=== PATIENT | female | born 1955 | race Caucasian/White ===

== ENCOUNTER 2021-05-02 20:38 | Observation (INO) | payer MEDICARE, MEDICAID, SELFPAY ==
[2016-10-24 17:12] VITALS: BMI 47.9
[2021-05-02 20:23] VITALS: BMI 34.4
--- NOTE | 2021-05-02 20:42 | ECHOD_ITS ---
Reason For Study: syncope/near syncope Procedure This was a 2D Doppler, Color Flow transthoracic echocardiogram. The study was technically difficult. PT was unable to cooperate due to dementia. Exam was stopped after apical 2 chamber view due to PT was pushing my arm away. Exam performed portable in patient room. Left Ventricle Normal LV size. Left ventricular systolic function is normal. The estimated ejection fraction is 60 %. No regional wall motion abnormalities noted. Right Ventricle Normal RV size. Normal systolic function. Atria Normal left atrium. Normal right atrium. Mitral Valve Normal mitral valve. Tricuspid Valve Normal tricuspid valve. Aortic Valve Trisinus/trileaflet aortic valve. Mild focal aortic valve calcification. Pulmonic Valve The pulmonic valve is not well visualized. Great Vessels Normal aortic root. The pulmonary artery is normal size. Normal inferior vena cava. Pericardium/Pleural No pericardial effusion. MMode/2D Measurements & Calculations LVIDd: 4.8 cm IVSd: 0.74 cm Ao root diam: 3.5 cm LVIDs: 3.2 cm LVPWd: 0.95 cm RVDd: 2.8 cm FS: 32.4 % LAV(MOD-bp): 65.8 ml LA A4 area: 22.1 cm2 LA dimension(2D): 4.1 cm LAV(MOD-bp) Indexed: 36.2 ml/m2 LAV(MOD-sp2): 64.0 ml LAV(MOD-sp4): 63.2 ml RA A4 area: 16.1 cm2 Doppler Measurements & Calculations MV E max brian: 107.8 cm/sec Lat Peak E' Brian: 12.7 cm/sec Med Peak E' Brian: 9.1 cm/sec MV A max brian: 90.6 cm/sec E/E' lat: 8.5 E/E' med: 11.8 MV E/A: 1.2 Ao V2 max: 217.6 cm/sec LV V1 max: 147.5 cm/sec PA V2 max: 124.0 cm/sec Ao max P.9 mmHg LV V1 max P.7 mmHg Ao V2 mean: 131.8 cm/sec LV V1 mean P.1 mmHg Ao mean P.9 mmHg LV V1 mean: 95.6 cm/sec Ao V2 VTI: 42.1 cm LV V1 VTI: 29.7 cm ECHO/Echo Complete Interpretation Summary Normal LV size. Left ventricular systolic function is normal. The estimated ejection fraction is 60 %. Ordering Physician: Kraig Garzon Referring Physician: Rex Bryan Performed By: Micki Ash, ANA LILIA, RVT
--- NOTE | 2021-05-02 20:45 | PCM.HP.STD ---
HPI - General General Date of Admission: 05/02/21 HPI Narrative NATHANIEL PERRY, is a 65 F who presented to outside hospital ED because of a fall. Patient has dementia and is unable to make it in the snow so history was taken from patient's who was at the bedside. Per patient on the morning of the day of presentation patient was sitting in the chair and she had a seizure. Patient's described the seizure as staring and rigidity. About an hour later patient's heard a thud. He saw that patient was on the floor. Apparently patient was a walking and she fell. After the fall patient was unresponsive. Paramedics were called. Patient was responding only to pain. At outside hospital ED urinalysis was found to be abnormal. Sodium was elevated. Imaging showed a fracture of left medial femoral condyle. Dr. Pritchard orthopedic with [facility] was notified and he recommended knee immobilization. Patient was reportedly brought to our hospital ([facility]) for management of a seizure as outside hospital could not manage seizure. Patient denies that patient has any urinary symptoms. Patient has been constipated for a while but while at outside hospital ED patient had a soft bowel movement. [facility] Medical History Dementia FH: total knee replacement Hypothyroid Seizure Home Medications levothyroxine 175 mcg PO QODAY 10/24/16 [History Last Taken 05/02/21] levetiracetam 750 mg PO BID 05/02/21 [History Last Taken 05/02/21] Allergy/AdvReac Type Severity Reaction Status Date / Time No Known Allergies Allergy Verified 10/24/16 16:56 Family History Father Cancer Social History Smoking Status: Never smoker ROS ROS Narrative 12 point review of system is negative except as stated in HPI. Vital Signs Vital Signs Vital Signs: Weight Weight: 82.7 kg Body Mass Index (BMI) 34.4 Physical Exam Narrative Alert and confused Nontraumatic; normocephalic Lung clear to auscultate Heart sounds S1-S2. No murmur, gallop or rubs. Abdomen bowel sounds present soft, nontender nondistended Extremity: Left knee pain immobilizer in place. Right knee unremarkable. Assessment & Plan Assessment/Plan (1) Femoral condyle fracture: QUALIFIERS: Encounter type: initial encounter Fracture alignment: nondisplaced Fracture type: closed Laterality: left Qualified Code(s): S72.415A - Nondisplaced unspecified condyle fracture of lower end of left femur, initial encounter for closed fracture (2) UTI (urinary tract infection): QUALIFIERS: Hematuria presence: without hematuria Urinary tract infection type: acute cystitis Qualified Code(s): N30.00 - Acute cystitis without hematuria (3) Seizure: (4) Hypernatremia: PLAN: Left Medial Femoral Condyle Fracture With immobilizer; continue Tylenol and oxycodone prn ordered Bowel protocol and antiemetics in place. Consider discussing case with Dr. Perry. Hypernatremia Review of labs from outside hospital ED showed sodium level of 151. Chloride of 111. BUN of 28. Creatinine of 0.90. BUN over creatinine ratio of 31. Magnesium 2.5. Hyponatremia likely secondary to dehydration. Normal saline infusion ordered. Trend BMP. Acute cystitis Urinalysis obtained at the outside hospital was abnormal. Urinalysis was reviewed. Received Rocephin in the emergency department. Rocephin continued. Trend CBC Seizure Patient has dementia and her gives her medication. reported that occasionally he finds the medications on the floor that is occasional patient does not take her medication. Received Keppra IV at outside hospital ED. Home Keppra continued. As needed Ativan ordered. Seizure precautions ordered. DVT prophylaxis Subcutaneous Lovenox ordered Charges/Coding Visit Charges OBSV E&M: 30688 Initial observation care L3
[2021-05-02 20:52] VITALS: BP 109/49; PULSE 66; RESP 16; TEMP 37.2; O2SAT 92
[2021-05-02] MEDS: 0.9% Normal Saline 1,000 ML 100 ML IV (21:04)
[2021-05-02] MEDS: levETIRAcetam 750 MG Tablet PO (21:38)
[2021-05-02 22:01] VITALS: PULSE 67
[2021-05-03] VITALS (10 sets, daily range): BP systolic 112–143; BP diastolic 49–76; PULSE 64–76; RESP 15–18; TEMP 36.2–37.2; O2SAT 93–99
[2021-05-03] MEDS: 0.9% Normal Saline 1,000 ML 100 ML IV ×2 (05:39→16:05)
[2021-05-03 06:16] LABS: Absolute Lymphocyte Count 0.86 X10^3/uL (0.83-4.51); Absolute Neutrophil Count 5.3 X10^3/uL (2.0-7.7); Basophil# 0.02 X10^3/uL; Basophil% 0.3 % (0-1); Eosinophil# 0.03 X10^3/uL; Eosinophils% 0.4 % (0-5); Hematocrit 39.3 % (37-54); Hemoglobin 12.7 g/dL (13.0-16.5); Lymphocyte # 0.86 X10^3/ul (0.83-4.51); Lymphocyte % 12.9 % (19-41); Mean Corp Hgb Conc 32.3 g/dL (32-36); Mean Corpuscular Hgb 30.6 pg (27.0-32.0); Mean Corpuscular Volume 94.7 fL (80-94); Mean Platelet Vol. 10.8 fl (6.2-12.0); Monocyte# 0.49 X10^3/uL; Monocyte% 7.3 % (0-10); NRBC Flagged by Analyzer 0 % (0-5); Neutrophil # 5.26 X10^3/uL (2.7-7.7); Neutrophil % 78.8 % (47-70); Platelet Count 218 K/mm3 (150-450); RBC Distribution Width CV 12.5 % (11.6-14.6); RBC Distribution Width SD 43.6 fl (35.1-43.9); Red Blood Count 4.15 M/mm3 (4.6-6.2); White Blood Count 6.7 K/mm3 (4.4-11.0)
[2021-05-03 07:45] LABS: Anion Gap 5 (5-15); BUN 17 mg/dL (7-18); BUN/Creat Ratio 25.8 RATIO (10-20); Calcium,Total 8.6 mg/dL (8.5-10.1); Chloride 120 mmol/L (98-107); Creatinine, Serum 0.66 mg/dL (0.55-1.02); EST Glomerular Filtration Rate 95 mL/min (>60); Est Glom Filt Rate - Afr Amer 115 mL/min (>60); Estimated Creatinine Clearance 41.76 ml/min; Glucose 88 mg/dL (74-106); Potassium 3.2 mmol/L (3.5-5.1); Sodium Level 149 mmol/L (136-145)
[2021-05-03 08:03] LABS: Vitamin D,25 Hydroxy 15.4 ng/mL
[2021-05-03] MEDS: Enoxaparin 40 MG/0.4 ML Syringe SC (09:39)
[2021-05-03] MEDS: Ceftriaxone 1 GM/50 ML BAG IV (09:40)
--- NOTE | 2021-05-03 10:27 | CASEMGMT ---
Assessment- MASOUD completed assessment with patient's at bedside. SW also confirmed address and phone number. Living situation- Patient lives with her in a 1 story home with 3 entry steps. PCP: Rex Bryan Specialists: Dr Cruz at [facility] in [place]. Dr Mariano for Psychiatry Pharmacy: [facility] DME: walker, cane, and lift chair. They have a walk in shower ADL's/IADL's: Patient's helps patient with everything. She can feed herself without utensils. She normally does not use any assistive devices to ambulate. Past SNF/rehab: None in [place]. Several years ago she went to a fpc in [place] after a knee replacement. Past HH: None LW: None POA: None Patient's said he was able to get patient back into [facility] 3 days a week. He said he works with [facility], but does not know the manager rn case. He said if she can walk he will take her home. MASOUD told him MASOUD and RN TYE will follow and assist with d/c planning once more is known. Plan: Pending work-up and PT/OT evaluations Bhumika Ribera [employer] JORDY
[2021-05-03] MEDS: levETIRAcetam 750 MG Tablet PO ×2 (10:28→20:58)
--- NOTE | 2021-05-03 13:08 | CASEMGMT ---
DELIO GAMBLE in to discuss CH form with patient and . RN CM explained CH form, voiced understanding. Pt signed form, filed in chart. Pt and provided with a copy of signed CH form. Patient nor had no further questions or concerns at this time.
--- NOTE | 2021-05-03 14:57 | PCM.PN.HOSP ---
Documented by User: Jaswant MILLER 05/03/21 15:13 Subjective Subjective Patient is a 65-year-old female resting in bed, alert and oriented to self. Patient unable to provide much insight into her condition due to her severe chronic dementia. reports that patient is at her baseline. Objective Data Objective Data Vital Signs: Vital Signs Temp Pulse Resp BP Pulse Ox 97.8 F 68 18 114/74 97 05/03/21 14:21 05/03/21 14:21 05/03/21 14:21 05/03/21 14:21 05/03/21 14:21 Oxygen Delivery Method Room Air Weight: 182 lb 5.156 oz Body Mass Index (BMI) 34.4 Intake & Output: Intake and Output for Last 24 Hours 05/01/21 05/02/21 05/03/21 23:59 23:59 23:59 Intake Total 1336.66 / 1336.66 Balance 1336.66 / 1336.66 Lab / Micro Data Result Diagrams: 05/03/21 05:35 05/03/21 05:35 Labs: Laboratory Results - last 24 hr 05/03/21 05/03/21 05/03/21 05:35 05:35 05:35 WBC 6.7 RBC 4.15 L Hgb 12.7 L Hct 39.3 MCV 94.7 H MCH 30.6 MCHC 32.3 RDW Std Deviation 43.6 RDW Coeff of Karen 12.5 Plt Count 218 MPV 10.8 Immature Gran % (Auto) 0.300 Neut % (Auto) 78.8 H Lymph % (Auto) 12.9 L [place] % (Auto) 7.3 Eos % (Auto) 0.4 Baso % (Auto) 0.3 Absolute Neuts (auto) 5.3 Absolute Lymphs (auto) 0.86 Nucleated RBC % 0 Sodium 149 H Potassium 3.2 L Chloride 120 H Carbon Dioxide 24.0 Anion Gap 5 BUN 17 Creatinine 0.66 Estim Creat Clear Calc 41.76 Est GFR (MDRD) Af Amer 115 Est GFR (MDRD) Non-Af 95 BUN/Creatinine Ratio 25.8 H Glucose 88 Calcium 8.6 Vitamin D 25-Hydroxy 15.4 Radiography Diagnostic Testing: Radiology Impression Echocardiogram 05/02/21 20:42 Interpretation Summary Normal LV size. Left ventricular systolic function is normal. The estimated ejection fraction is 60 %. Ordering Physician: Kraig Garzon Referring Physician: Rex Bryan Performed By: Micki Ash, RDCS, RVT Physical Exam Const alert General Appearance: uncooperative HEENT head/scalp atraumatic Head and Scalp: normocephalic Eyes PERRL, EOMs intact bilaterally and conjunctivae normal Neck no lymphadenopathy, supple and no JVD Resp normal respiratory effort and no use of accessory muscles Cardio regular rate, regular rhythm, no murmurs and no JVD GI normal to inspection, nondistended, normoactive bowel sounds, soft to palpation and non-tender Extremity normal to inspection, full ROM and no clubbing, cyanosis or edema Skin no rashes or lesions noted, no wounds and skin turgor normal Neuro Neuro Narrative: Unable to assess. Psych Psych Narrative: Unable to assess. Assessment & Plan Assessment/Plan (1) Hypernatremia: (2) UTI (urinary tract infection): QUALIFIERS: Hematuria presence: without hematuria Urinary tract infection type: acute cystitis Qualified Code(s): N30.00 - Acute cystitis without hematuria (3) Femoral condyle fracture: QUALIFIERS: Encounter type: initial encounter Fracture alignment: nondisplaced Fracture type: closed Laterality: left Qualified Code(s): S72.415A - Nondisplaced unspecified condyle fracture of lower end of left femur, initial encounter for closed fracture (4) Seizure: PLAN: Patient unable to provide much insight into her condition due to her severe dementia. Patient's reports that patient is at baseline. Discharge planning: Patient's is patient's sole care provider. reports that he would like to continue taking care of his , he works with [facility] for care with his , also he takes his to [facility] 3 days/week. reports that he can request additional assistance for home health care through [facility]. is not interested in placement at correction facility at this time. 1) femoral condyle fracture Diagnosed at outside hospital. Plan; knee immobilization per Dr. Pritchard, orthopedic consult ordered/pending, Tylenol as needed, oxycodone as needed. 2) acute cystitis UA obtained at outside hospital demonstrated abnormal UA. Vital signs stable and patient is afebrile. CBC demonstrates no leukocytosis. Plan; continue Rocephin, continue to monitor. 3) seizure Patient is on Keppra at home and is administered by her Patients reports that he gives the Keppra as prescribed, however sometimes patient refuses to take the pills as he finds the pills in the bed. Plan; Ativan as needed, seizure precautions ordered, home Keppra continued. 4) hypernatremia Currently 149. Possibly secondary to dehydration. Plan; normal saline infusion ordered, continue to trend BMP. 5) Hypokalemia Currently 3.2. Plan; IV potassium ordered, continue to monitor BMP. DVT prophylaxis - Lovenox SC Patient seen by Jaswant Peter PA-C, under the supervision of Dr. Bansal. Documented by User: Dr. Ric Bansal MD 05/03/21 15:22 Objective Data Lab / Micro Data Result Diagrams: 05/03/21 05:35 05/03/21 05:35 Charges/Coding Addendum Addendum: Hospitalist note: I am seeing this patient in conjunction with Jaswant Peter. I independently seen and examined the patient. History and physical, laboratory data and imaging studies reviewed and I concur with above treatment plan. Patient was admitted because of seizure and fall. She does have dementia and she is awake and alert but not able to communicate. was at the bedside. Her vital signs are stable. - Physical Exam General: Alert, demented, Cooperative, No apparent distress. HEENT: Atraumatic, PERRLA, EOMI. Neck: Supple, No JVD, Negative Carotid Bruits, Trachea Midline, Thyroid Normal. Lungs: Clear to auscultation, Normal air movement, No rhonchi, No wheeze, No rales. Cardiovascular: Regular rate, Regular Rhythm, Normal S1, Normal S2, PMI Normal. Abdomen: Bowel Sounds Present, Soft, Non Tender, Non-Distended, No Hepato-splenomegaly. Extremities: No clubbing, No cyanosis, No edema Skin: No rashes, No breakdown Neurological: Cranial nerves are intact, neuro grossly intact Vital Signs are stable. Assessment and plan: #1 seizure: Apparently due to medication noncompliance, mentioned that he gives her her medication including Keppra but lately, he states that he finds some pills on on the bed untaken. Currently, she is on Keppra, will need to confirm the dosage. CT scan brain showed no acute findings. #2 acute traumatic left medial femoral condyle fracture: Plan for pain control, consult orthopedic surgery. #3 acute cystitis: On IV Rocephin. She has been afebrile, no leukocytosis. #4 other chronic medical problems: Stable, continue current medications as above. This note was generated with [employer] dictation software. It may contain incorrect words, spelling, and punctuation that were not noted in checking the note before signing. Visit Charges OBSV E&M: 51560 Subsequent observation care L2
[2021-05-03] MEDS: Potassium Chloride 10mEq/100mL 10 MEQ/100 ML IV.SOLN. 100 MEQ IV BOLUS ×4 (16:11→19:26)
[2021-05-04] VITALS (11 sets, daily range): BP systolic 115–130; BP diastolic 60–77; PULSE 43–67; RESP 15–18; TEMP 36.3–36.7; O2SAT 93–100
[2021-05-04] MEDS: 0.9% Normal Saline 1,000 ML 100 ML IV ×3 (02:40→21:27)
[2021-05-04] MEDS: Levothyroxine 175 MCG Tablet PO (05:47)
[2021-05-04 06:41] LABS: Absolute Neutrophil Count 3.9 X10^3/uL (2.0-7.7); Basophil# 0.04 X10^3/uL; Basophil% 0.6 % (0-1); Eosinophil# 0.37 X10^3/uL; Hematocrit 37.3 % (37-47); Hemoglobin 12.3 g/dL (12.0-15.0); Lymphocyte % 22.7 % (19-41); Mean Corpuscular Hgb 30.6 pg (27.0-32.0); Mean Corpuscular Volume 92.8 fL (81-99); Mean Platelet Vol. 10.7 fl (6.2-12.0); Monocyte# 0.51 X10^3/uL; Monocyte% 8.3 % (0-10); NRBC Flagged by Analyzer 0 % (0-5); Neutrophil # 3.85 X10^3/uL (2.7-7.7); Neutrophil % 62.2 % (47-70); Platelet Count 200 K/mm3 (150-450); RBC Distribution Width CV 12.5 % (11.6-14.6); RBC Distribution Width SD 42.8 fl (35.1-43.9); Red Blood Count 4.02 M/mm3 (4.2-5.4); White Blood Count 6.2 K/mm3 (4.4-11.0)
[2021-05-04 07:06] LABS: Anion Gap 4 (5-15); BUN 8 mg/dL (7-18); BUN/Creat Ratio 14.2 RATIO (10-20); Calcium,Total 8.7 mg/dL (8.5-10.1); Chloride 119 mmol/L (98-107); Creatinine, Serum 0.56 mg/dL (0.55-1.02); EST Glomerular Filtration Rate 115 mL/min (>60); Est Glom Filt Rate - Afr Amer 139 mL/min (>60); Estimated Creatinine Clearance 41.76 ml/min; Glucose 87 mg/dL (74-106); Potassium 3.3 mmol/L (3.5-5.1); Sodium Level 146 mmol/L (136-145)
--- NOTE | 2021-05-04 07:54 | PCM.CONS.GEN ---
Assessment & Plan Assessment/Plan (1) Closed fracture of medial condyle of left femur: PLAN: Patient sustained a left medial femoral condyle fracture after falling. Most likely this will be successfully treated in a knee immobilizer, non-operative treatment, as previously recommended by Dr. Pritchard. Recommended ice if needed. Pain medication if needed. Nonweightbearing on the left leg for now. May Need to pad upper and lower area of brace to avoid skin breakdown. She can be followed in the office in 2 to 3 weeks for repeat x-rays of the left knee. If the fracture seems stable and does not seem to appear to enter the joint we could consider partial weightbearing at that point with her knee immobilizer on. Risk of fracture displacement does exist. medical problems including seizures, dementia. Continue evaluation and treatment per hospitalist service. Patient can be discharged per orthopedic service when arrangements made and okay with hospitalist HPI Consult Data Date of Consult: 05/04/21 HPI Narrative HPI Narrative: NATHANIEL PERRY, is a 65 F who presents after having a seizure and falling on May 02, 2021. Reportedly she was taken to [facility] emergency room and ultimately transferred to [facility]. Dr. Pritchard had recommended a knee immobilizer and follow-up in the office. Patient has dementia. Patient does not answer questions or follow commands. She seems comfortable. She is wearing a knee immobilizer left lower extremity. No Family was present at the bedside REPLACED BY [facility] Medical History Dementia FH: total knee replacement Hypothyroid Seizure Home Medications levothyroxine 175 mcg PO QODAY 10/24/16 [History Last Taken 05/02/21] levetiracetam 750 mg PO BID 05/02/21 [History Last Taken 05/02/21] Allergy/AdvReac Type Severity Reaction Status Date / Time No Known Allergies Allergy Verified 10/24/16 16:56 Family History Father Cancer Social History Smoking Status: Never smoker ROS ROS Narrative Review of systems not obtainable. Due to mental status. Hospitalist notes reviewed. Case discussed with her nurse. Physical Exam Narrative Patient is lying supine in bed. She does have her knee immobilizer on her left lower extremity. This was taken down. Her skin is intact. She has no obvious pain on palpation about the knee. Very minimal knee swelling. Knee was not overly stressed. No obvious calf pain or swelling. Negative Homans' sign. Clinically knee is well aligned. No hip pain with motion obvious. X-rays AP and lateral of the left knee showed a total knee replacement in good position. There is a nondisplaced fracture line to the medial femoral condyle on the AP view. No obvious fracture seen on the lateral view. Fracture may well not involve her whole knee component. No Obvious loosening or failure of the total knee components Lab / Micro Data Result Diagrams: 05/04/21 05:41 05/04/21 05:41 Labs: Laboratory Results - last 24 hr 05/03/21 05/04/21 05/04/21 05:35 05:41 05:41 WBC 6.2 RBC 4.02 L Hgb 12.3 Hct 37.3 MCV 92.8 MCH 30.6 MCHC 33.0 RDW Std Deviation 42.8 RDW Coeff of Karen 12.5 Plt Count 200 MPV 10.7 Immature Gran % (Auto) 0.200 Neut % (Auto) 62.2 Lymph % (Auto) 22.7 [place] % (Auto) 8.3 Eos % (Auto) 6.0 H Baso % (Auto) 0.6 Absolute Neuts (auto) 3.9 Absolute Lymphs (auto) 1.40 Nucleated RBC % 0 Sodium 146 H Potassium 3.3 L Chloride 119 H Carbon Dioxide 23.0 Anion Gap 4 L BUN 8 Creatinine 0.56 Estim Creat Clear Calc 41.76 Est GFR (MDRD) Af Amer 139 Est GFR (MDRD) Non-Af 115 BUN/Creatinine Ratio 14.2 Glucose 87 Calcium 8.7 Vitamin D 25-Hydroxy 15.4 Radiology Impression Echocardiogram 05/02/21 20:42 Interpretation Summary Normal LV size. Left ventricular systolic function is normal. The estimated ejection fraction is 60 %. Ordering Physician: Kraig Garzon Referring Physician: Rex Bryan Performed By: Micki Ash RDCS, RVT
[2021-05-04] MEDS: Enoxaparin 40 MG/0.4 ML Syringe SC (09:28)
[2021-05-04] MEDS: levETIRAcetam 750 MG Tablet PO ×2 (09:28→21:26)
[2021-05-04] MEDS: Acetaminophen 325 MG Tablet 650 MG PO ×2 (09:29→16:52)
[2021-05-04] MEDS: Ceftriaxone 1 GM/50 ML BAG IV (09:34)
[2021-05-04] MEDS: Potassium Chloride 10mEq/100mL 10 MEQ/100 ML IV.SOLN. 100 MEQ IV BOLUS ×4 (10:59→13:49)
[2021-05-04 11:34] LABS: Thyroid Stim Hormone (TSH) < 0.01 uIU/mL (0.358-3.74)
--- NOTE | 2021-05-04 12:53 | PN.HOSP_ITS ---
Documented by User: Jaswant MILLER 05/04/21 12:59 Subjective Subjective Patient is a 65-year-old female resting in a chair, alert to self. Patient unable to provide much insight into her medical condition due to her severe dementia. Objective Data Objective Data Vital Signs: Vital Signs Temp Pulse Resp BP Pulse Ox 97.9 F 48 L 18 118/73 97 05/04/21 09:25 05/04/21 10:47 05/04/21 09:25 05/04/21 09:25 05/04/21 09:25 Oxygen Delivery Method Room Air Weight: 182 lb 5.156 oz Body Mass Index (BMI) 34.4 Intake & Output: Intake and Output for Last 24 Hours 05/02/21 05/03/21 05/04/21 23:59 23:59 23:59 Intake Total 2308.33 / 2308.33 2090.00 / 2090.00 Balance 2308.33 / 2308.33 2090.00 / 2090.00 Lab / Micro Data Result Diagrams: 05/04/21 05:41 05/04/21 05:41 Labs: Laboratory Results - last 24 hr 05/04/21 05/04/21 05/04/21 05:41 05:41 05:41 WBC 6.2 RBC 4.02 L Hgb 12.3 Hct 37.3 MCV 92.8 MCH 30.6 MCHC 33.0 RDW Std Deviation 42.8 RDW Coeff of Karen 12.5 Plt Count 200 MPV 10.7 Immature Gran % (Auto) 0.200 Neut % (Auto) 62.2 Lymph % (Auto) 22.7 [place] % (Auto) 8.3 Eos % (Auto) 6.0 H Baso % (Auto) 0.6 Absolute Neuts (auto) 3.9 Absolute Lymphs (auto) 1.40 Nucleated RBC % 0 Sodium 146 H Potassium 3.3 L Chloride 119 H Carbon Dioxide 23.0 Anion Gap 4 L BUN 8 Creatinine 0.56 Estim Creat Clear Calc 41.76 Est GFR (MDRD) Af Amer 139 Est GFR (MDRD) Non-Af 115 BUN/Creatinine Ratio 14.2 Glucose 87 Calcium 8.7 TSH < 0.01 L Physical Exam Const alert, oriented x3 and no apparent distress HEENT head/scalp atraumatic and moist oral mucous membranes Head and Scalp: normocephalic Eyes PERRL, EOMs intact bilaterally and conjunctivae normal Neck no lymphadenopathy, supple and no JVD Resp normal respiratory effort, no retractions, no use of accessory muscles and clear to auscultation bilaterally Cardio regular rate, regular rhythm, no murmurs and no JVD GI normal to inspection, nondistended, normoactive bowel sounds, soft to palpation, non-tender and non-distended Extremity normal to inspection, full ROM and no clubbing, cyanosis or edema Skin no rashes or lesions noted, no wounds, skin turgor normal and no jaundice Neuro CN's II-XII intact bilaterally Psych affect normal Assessment & Plan Assessment/Plan (1) Acute cystitis: (2) Closed fracture of medial condyle of left femur: (3) Hypernatremia: (4) Seizure: (5) Hypothyroidism: (6) Seizure disorder: PLAN: Patient unable to provide much insight into her condition due to her severe dementia. Patient's reports that patient is at baseline. Discharge planning: has changed mind about disposition of patient, now would like her to be placed into detention care due to patient's inability to bear weight. Case management consult has been ordered. 1) femoral condyle fracture Diagnosed at outside hospital. Plan; knee immobilization per Dr. Pritchard, orthop edic consult ordered/pending, Tylenol as needed, oxycodone as needed, case management consult ordered for detention care on discharge. 2) acute cystitis UA obtained at outside hospital demonstrated abnormal UA. Vital signs stable and patient is afebrile. CBC demonstrates no leukocytosis. Plan; continue Rocephin, continue to monitor. 3) seizure Patient is on Keppra at home and is administered by her Patients reports that he gives the Keppra as prescribed, however sometimes patient refuses to take the pills as he finds the pills in the bed. Plan; Ativan as needed, seizure precautions ordered, home Keppra continued. 4) hypernatremia Currently 149. Possibly secondary to dehydration. Plan; normal saline infusion ordered, continue to trend BMP. 5) Hypokalemia Currently 3.2. Plan; IV potassium ordered, continue to monitor BMP. 6) Hypothyroidism Patient's home prescription of Synthroid has been changed to 125 mcg daily due to low TSH and reports from that patient has lost 40 pounds over the past few months. Plan; discontinue levothyroxine 175 mcg daily, levothyroxine 125 mcg daily initiated. DVT prophylaxis - Lovenox [place] Patient seen by Jaswant Peter PA-C, under the supervision of Dr. Bansal. Documented by User: Dr. Ric Bansal MD 05/04/21 13:18 Objective Data Lab / Micro Data Result Diagrams: 05/04/21 05:41 05/04/21 05:41 Charges/Coding Addendum Addendum: Hospitalist note: I am seeing this patient in conjunction with Jaswant Peter. I independently seen and examined the patient. Progress note above and laboratory data reviewed and I concur with the above plan. Today, patient is sitting in her chair, comfortable, alert to herself, not communicating because of severe dementia. was at the bedside and he stated that she is at her baseline mentation. Her vital signs are stable. - Physical Exam General: Alert, demented, Cooperative, No apparent distress. HEENT: Atraumatic, PERRLA, EOMI. Neck: Supple, No JVD, Negative Carotid Bruits, Trachea Midline, Thyroid Normal. Lungs: Clear to auscultation, Normal air movement, No rhonchi, No wheeze, No rales. Cardiovascular: Regular rate, Regular Rhythm, Normal S1, Normal S2, PMI Normal. Abdomen: Bowel Sounds Present, Soft, Non Tender, Non-Distended, No Hepato- splenomegaly. Extremities: No clubbing, No cyanosis, No edema Skin: No rashes, No breakdown Neurological: Cranial nerves are intact, neuro grossly intact Vital Signs are stable. Assessment and plan: #1 seizure: Remained on Keppra twice daily, no more seizures. This breakthrough seizure is probably due to medication noncompliance, mentioned that he gives her her medication including Keppra but lately, he states that he finds some pills on on the bed untaken. CT scan brain showed no acute findings. Plan for PT OT evaluation and treatment, continue same treatment, patient will need placement to detention facility. #2 acute traumatic left medial femoral condyle fracture: Orthopedic surgery consulted,, recommended conservative treatment with knee immobilizer. Patient's mentioned that patient is having problems bearing weight to her left leg. He requested placement to detention facility. Plan for PT OT evaluation and treatment, placement to SNF. #3 acute cystitis: On IV Rocephin. She has been afebrile, no leukocytosis. #4 hypothyroidism: TSH came back at less than 0.01, very low. Patient's mentioned that she has been on 175 mcg daily of levothyroxine for the last 5 years. He mentioned that she lost some weight in the last couple of months. Plan: Decrease levothyroxine down to 125 mcg daily, recommend to repeat TSH in 2 to 4 weeks. #5 other chronic medical problems: Stable, continue current medications as above. This note was generated with [employer] dictation software. It may contain incorrect words, spelling, and punctuation that were not noted in checking the note before signing. Multi Select Codes Visit Charges Observation E&M Codin Subsequent observation care L2
--- NOTE | 2021-05-04 18:59 | CM.ED ---
MASOUD Note Referral Source: [facility] Consultant Referral Reason: [facility] Consultant advised that RN had called and indicated that plan for patient was discharge home however, patient's said that patient needs [facility] Facility (SNF) at discharge. MASOUD met with patient's , Clarence, and provided him with in network providers for SNF in [facility]. said that patient can not put weight on her leg, is incontinent and has dementia and he feels he can't manage her at home currently. Clarence advised he just wants facility that can manage patient. His choices for SNF were [facility] ([facility]) and [facility]. MASOUD called Karma at [facility]. She said that they have one female bed in their locked unit. She said that referral could be made on Thursday as she will need to verify insurance. MASOUD will leave message for assigned social work associate. MASOUD updated patient's , Clarence, that [facility] has an secure locked unit. He said that patient is not a runner but when she is in a strange facility she paces and walks alot. Plan: SNF at discharge. Florence MELTON
[2021-05-05] VITALS (10 sets, daily range): BP systolic 99–116; BP diastolic 54–88; PULSE 57–87; RESP 16–18; TEMP 36.6–36.9; O2SAT 95–98
[2021-05-05] MEDS: Levothyroxine 125 MCG Tablet PO (05:23)
[2021-05-05 07:20] LABS: Anion Gap 5 (5-15); BUN 7 mg/dL (7-18); BUN/Creat Ratio 14.7 RATIO (10-20); Calcium,Total 8.4 mg/dL (8.5-10.1); Chloride 115 mmol/L (98-107); Creatinine, Serum 0.48 mg/dL (0.55-1.02); EST Glomerular Filtration Rate 138 mL/min (>60); Est Glom Filt Rate - Afr Amer 167 mL/min (>60); Estimated Creatinine Clearance 41.76 ml/min; Glucose 96 mg/dL (74-106); Potassium 3.7 mmol/L (3.5-5.1); Sodium Level 143 mmol/L (136-145)
[2021-05-05] MEDS: 0.9% Normal Saline 1,000 ML 100 ML IV ×2 (07:20→17:56)
[2021-05-05] MEDS: Enoxaparin 40 MG/0.4 ML Syringe SC (08:52)
[2021-05-05] MEDS: levETIRAcetam 750 MG Tablet PO ×2 (08:52→21:33)
[2021-05-05] MEDS: Ceftriaxone 1 GM/50 ML BAG IV (09:23)
--- NOTE | 2021-05-05 14:45 | PN.HOSP_ITS ---
Documented by User: Jaswant MILLER 05/05/21 14:48 Subjective Subjective Patient is a 65-year-old female alert to self and resting in a chair. Patient unable to provide much history into her current condition given her baseline severe dementia. not in the room at the time of my examination. Objective Data Objective Data Vital Signs: Vital Signs Temp Pulse Resp BP Pulse Ox 97.9 F 60 18 102/54 L 98 05/05/21 09:27 05/05/21 09:27 05/05/21 09:27 05/05/21 09:27 05/05/21 09:27 Oxygen Delivery Method Room Air Weight: 182 lb 5.156 oz Body Mass Index (BMI) 34.4 Intake & Output: Intake and Output for Last 24 Hours 05/03/21 05/04/21 05/05/21 23:59 23:59 23:59 Intake Total 2308.33 / 2308.33 3616.67 / 3616.67 1545.00 / 1545.00 Balance 2308.33 / 2308.33 3616.67 / 3616.67 1545.00 / 1545.00 Lab / Micro Data Result Diagrams: 05/04/21 05:41 05/05/21 06:16 Labs: Laboratory Results - last 24 hr 05/05/21 06:16 Sodium 143 Potassium 3.7 Chloride 115 H Carbon Dioxide 23.0 Anion Gap 5 BUN 7 Creatinine 0.48 L Estim Creat Clear Calc 41.76 Est GFR (MDRD) Af Amer 167 Est GFR (MDRD) Non-Af 138 BUN/Creatinine Ratio 14.7 Glucose 96 Calcium 8.4 L Physical Exam Const alert, oriented x3 and no apparent distress HEENT head/scalp atraumatic Head and Scalp: normocephalic Eyes PERRL, EOMs intact bilaterally and conjunctivae normal Neck no lymphadenopathy, supple and no JVD Resp normal respiratory effort, no retractions, no use of accessory muscles and clear to auscultation bilaterally Cardio regular rate, regular rhythm, no murmurs and no JVD GI normal to inspection, nondistended, normoactive bowel sounds and soft to palpation Extremity normal to inspection Skin no rashes or lesions noted, no wounds and no jaundice Neuro CN's II-XII intact bilaterally Psych affect normal Assessment & Plan Assessment/Plan (1) Acute cystitis: (2) Closed fracture of medial condyle of left femur: (3) Hypernatremia: (4) Seizure: (5) Hypothyroidism: (6) Seizure disorder: PLAN: See subjective for patient presentation. Discharge planning: Case management/social work attempting to get patient into [facility] [place] or [facility]. 1) femoral condyle fracture Diagnosed at outside hospital. Plan; knee immobilization per Dr. Pritchard, orthopedic consult ordered/pending, Tylenol as needed, oxycodone as needed, case management consult ordered for detention care on discharge. 2) acute cystitis UA obtained at outside hospital demonstrated abnormal UA. Vital signs stable and patient is afebrile. CBC demonstrates no leukocytosis. Plan; continue Rocephin, continue to monitor. 3) seizure Patient is on Keppra at home and is administered by her Patients reports that he gives the Keppra as prescribed, however sometimes patient refuses to take the pills as he finds the pills in the bed. Plan; Ativan as needed, seizure precautions ordered, home Keppra continued. 4) hypernatremia Currently 149. Possibly secondary to dehydration. Plan; normal saline infusion ordered, continue to trend BMP. 5) Hypokalemia Currently 3.2. Plan; IV potassium ordered, continue to monitor BMP. 6) Hypothyroidism Patient's home prescription of Synthroid has been changed to 125 mcg daily due to low TSH and reports from that patient has lost 40 pounds over the past few months. Plan; discontinue levothyroxine 175 mcg daily, levothyroxine 125 mcg daily initiated. DVT prophylaxis - Lovenox [place] Patient seen by Jaswant Peter PA-C, under the supervision of Dr. Bansal. Documented by User: Dr. Ric Bansal MD 05/05/21 14:59 Objective Data Lab / Micro Data Result Diagrams: 05/04/21 05:41 05/05/21 06:16 Charges/Coding Addendum Addendum: Hospitalist note: I am seeing this patient in conjunction with Jaswant Peter. I independently seen and examined the patient. Progress note above and laboratory data reviewed and I concur with the above plan. Today, patient is sitting in her chair, comfortable, alert to herself, not communicating because of severe dementia. Her vital signs are stable. - Physical Exam General: Alert, demented, Cooperative, No apparent distress. HEENT: Atraumatic, PERRLA, EOMI. Neck: Supple, No JVD, Negative Carotid Bruits, Trachea Midline, Thyroid Normal. Lungs: Clear to auscultation, Normal air movement, No rhonchi, No wheeze, No rales. Cardiovascular: Regular rate, Regular Rhythm, Normal S1, Normal S2, PMI Normal. Abdomen: Bowel Sounds Present, Soft, Non Tender, Non-Distended, No Hepato- splenomegaly. Extremities: No clubbing, No cyanosis, No edema Skin: No rashes, No breakdown Neurological: Cranial nerves are intact, neuro grossly intact Vital Signs are stable. Assessment and plan: #1 seizure: Remained on Keppra twice daily, no more seizures. This breakthrough seizure is probably due to medication noncompliance, mentioned that he gives her her medication including Keppra but lately, he states that he finds some pills on on the bed untaken. CT scan brain showed no acute findings. Plan for PT OT evaluation and treatment, continue same treatment, awaiting insurance approval for placement to detention facility. #2 acute traumatic left medial femoral condyle fracture: Orthopedic surgery consulted,, recommended conservative treatment with knee immobilizer. Patient's mentioned that patient is having problems bearing weight to her left leg. He requested placement to detention facility. Plan for PT OT evaluation and treatment, placement to SNF. #3 acute cystitis: On IV Rocephin. She has been afebrile, no leukocytosis. #4 hypothyroidism: TSH came back at less than 0.01, very low. Dose of levothyroxine adjusted down to 125 mcg daily. Recommend to repeat TSH in 2 to 4 weeks. #5 other chronic medical problems: Stable, continue current medications as above. This note was generated with [employer] software. It may contain incorrect words, spelling, and punctuation that were not noted in checking the note before signing. Visit Charges OBSV E&M: 53989 Subsequent observation care L2
[2021-05-06] VITALS (9 sets, daily range): BP systolic 97–141; BP diastolic 65–72; PULSE 53–83; RESP 16–18; TEMP 36.6–36.8; O2SAT 93–100
[2021-05-06] MEDS: 0.9% Normal Saline 1,000 ML 100 ML IV ×2 (04:05→15:09)
[2021-05-06] MEDS: Levothyroxine 125 MCG Tablet PO (05:25)
[2021-05-06] MEDS: levETIRAcetam 750 MG Tablet PO ×2 (09:16→22:09)
[2021-05-06] MEDS: Enoxaparin 40 MG/0.4 ML Syringe SC (09:16)
[2021-05-06] MEDS: 0.9% Saline Lock 10 ML Syringe IV (09:16)
[2021-05-06] MEDS: Ceftriaxone 1 GM/50 ML BAG IV (09:16)
[2021-05-06] MEDS: Acetaminophen 325 MG Tablet 650 MG PO (09:19)
--- NOTE | 2021-05-06 09:20 | CASEMGMT ---
MASOUD faxed referral to [facility]. MASOUD also called Lucila at [facility]. Await response and patient will also need a pre-cert. Bhumika Ribera MSW JORDY
--- NOTE | 2021-05-06 12:26 | PN.HOSP_ITS ---
Documented by User: Jaswant MILLER 05/06/21 12:31 Subjective Subjective Patient is a 65-year-old female lying in bed, alert and oriented x3. Patient cannot provide insight into her current condition or symptoms due to her severe dementia. not in the room at the time of my examination. Objective Data Objective Data Vital Signs: Vital Signs Temp Pulse Resp BP Pulse Ox 98.1 F 62 18 114/72 93 05/06/21 09:27 05/06/21 10:59 05/06/21 09:27 05/06/21 09:27 05/06/21 09:27 Oxygen Delivery Method Room Air Weight: 182 lb 5.156 oz Body Mass Index (BMI) 34.4 Intake & Output: Intake and Output for Last 24 Hours 05/04/21 05/05/21 05/06/21 23:59 23:59 23:59 Intake Total 3616.67 / 3616.67 2250.00 / 2250.00 1668.33 / 1668.33 Output Total 350 / 750 800 / 800 Balance 3616.67 / 3616.67 1900.00 / 1500.00 868.33 / 868.33 Lab / Micro Data Result Diagrams: 05/04/21 05:41 05/05/21 06:16 Physical Exam Const alert Exam Limitations: altered mental status and other limitations Nutritional Appearance: obese HEENT head/scalp atraumatic Head and Scalp: normocephalic Eyes PERRL and EOMs intact bilaterally Neck no lymphadenopathy, supple and no JVD Resp normal respiratory effort, no retractions and no use of accessory muscles Cardio regular rate, regular rhythm, no murmurs and no JVD GI normal to inspection, nondistended, normoactive bowel sounds and soft to palpation Extremity normal to inspection Skin no rashes or lesions noted Neuro CN's II-XII intact bilaterally Psych affect normal Assessment & Plan Assessment/Plan (1) Acute cystitis: (2) Closed fracture of medial condyle of left femur: (3) Hypernatremia: (4) Seizure: (5) Hypothyroidism: (6) Seizure disorder: PLAN: See subjective for patient presentation. Discharge planning; patient is awaiting acceptance and pre-CERT at [facility]. 1) femoral condyle fracture Diagnosed at outside hospital. Plan; knee immobilization per Dr. Pritchard, orthopedic consult ordered/pending, Tylenol as needed, oxycodone as needed, case management consult ordered for longterm care on discharge. 2) acute cystitis UA obtained at outside hospital demonstrated abnormal UA. Vital signs stable and patient is afebrile. CBC demonstrates no leukocytosis. Plan; continue Rocephin, continue to monitor. 3) seizure Patient is on Keppra at home and is administered by her Patients reports that he gives the Keppra as prescribed, however sometimes patient refuses to take the pills as he finds the pills in the bed. Plan; Ativan as needed, seizure precautions ordered, home Keppra continued. 4) hypernatremia Resolved, currently 143. Possibly secondary to dehydration on admission. Plan;continue to trend BMP. 5) Hypokalemia Resolved, currently 3.7. Plan; continue to trend BMP. 6) Hypothyroidism Patient's home prescription of Synthroid has been changed to 125 mcg daily due to low TSH and reports from that patient has lost 40 pounds over the past few months. Plan; discontinue levothyroxine 175 mcg daily, levothyroxine 125 mcg daily initiated. DVT prophylaxis - Lovenox [place] Patient seen by Jaswant Peter PA-C, under the supervision of Dr. Curtis Documented by User: Dr. Pavel Curtis MD 05/06/21 16:48 Subjective Subjective Patient had fall and left, medial femoral condylar fracture. On knee immobilizer. Patient also has seizure disorder with seizure breakthrough secondary to noncompliance. Patient is mute and nonresponsive to basic questions like her name, place and orientation questions. Objective Data Lab / Micro Data Result Diagrams: 05/04/21 05:41 05/05/21 06:16 Physical Exam Narrative General: Awake, mute, nonresponsive to verbal questions HEENT: Atraumatic, PERRLA, EOMI, Normocephalic Oral: No Gingival or Mucosal Lesions/ Ulcerations Neck: Supple, No JVD, Negative Carotid Bruits Lungs: Air entry diminished in bilateral lung bases. No crepitation/rhonchi Cardiovascular: Regular rate, Regular Rhythm, Normal S1, Normal S2, No murmurs Abdomen: Bowel Sounds Present, Soft, Non Tender, Non-Distended : No renal angle tenderness. No suprapubic tenderness. Extremities: No edema, Capillary Refill Less than 3 Seconds Skin: No rashes, No breakdown Musculoskeletal: Left knee on immobilizer. On nonweightbearing. Neurological: Cranial nerves II-XII grossly intact, Deep Tendon Reflexes 2+/4 and Symmetrical, Neuro grossly intact Psych/Mental Status: Flat affect. Assessment & Plan Assessment/Plan (1) Closed fracture of medial condyle of left femur: PLAN: This patient was seen in conjunction with PAUL Aguayo. I have independently interviewed and examined the patient and reviewed pertinent history, examination findings, laboratory and plan of management. I have reviewed the note and agree with the documented findings with the few additional points. In brief, patient is admitted for fall and as per had a seizure with staring look and rigidity. Seizure episode most probably secondary to noncompliance. CT brain showed no acute findings. Continue PT and OT. Patient also has acute cystitis and is on Rocephin. Left femoral medial condyle fracture on knee immobilizer. PT and OT evaluation and management. Other comorbidities mentioned is hyponatremia probably secondary to dehydration: Continue IV fluid. Hypokalemia resolved. I have discussed my assessment with PAUL Aguayo and orders have been reviewed. Charges/Coding Visit Charges Inpatient E&M: 88646 Subs Hosp L2
--- NOTE | 2021-05-06 13:58 | CASEMGMT ---
MASOUD spoke with Lucila at [facility] and she said they can take patient and she will start the pre-cert. MASOUD let patient's know [facility] can take patient and we have to wait on insurance to approve. MASOUD will let him know when we hear something. Patient has Medicaid so if [employer] denies her she can go on her Medicaid. Plan: [facility] pending pre-cert. Bhumika Ribera SHEAR SETTER JORDY
[2021-05-06] MEDS: Dext 5%-0.45% NS 1,000 ML 75 ML IV (17:13)
[2021-05-07 03:00] VITALS: PULSE 45
[2021-05-07 03:26] VITALS: BP 129/75; PULSE 60; RESP 18; TEMP 36.3; O2SAT 96
[2021-05-07] MEDS: Dext 5%-0.45% NS 1,000 ML 75 ML IV (03:38)
[2021-05-07] MEDS: Levothyroxine 125 MCG Tablet PO (05:28)
[2021-05-07 05:46] LABS: Absolute Lymphocyte Count 0.99 X10^3/uL (0.83-4.51); Basophil# 0.04 X10^3/uL; Basophil% 0.8 % (0-1); Eosinophil# 0.32 X10^3/uL; Eosinophils% 6.7 % (0-5); Hematocrit 43.9 % (37-47); Hemoglobin 14.5 g/dL (12.0-15.0); Lymphocyte # 0.99 X10^3/ul (0.83-4.51); Lymphocyte % 20.7 % (19-41); Mean Corpuscular Hgb 30.8 pg (27.0-32.0); Mean Corpuscular Volume 93.2 fL (81-99); Mean Platelet Vol. 10.3 fl (6.2-12.0); Monocyte# 0.39 X10^3/uL; Monocyte% 8.1 % (0-10); NRBC Flagged by Analyzer 0 % (0-5); Neutrophil # 3.04 X10^3/uL (2.7-7.7); Neutrophil % 63.5 % (47-70); Platelet Count 249 K/mm3 (150-450); RBC Distribution Width CV 12.2 % (11.6-14.6); RBC Distribution Width SD 42.1 fl (35.1-43.9); Red Blood Count 4.71 M/mm3 (4.2-5.4); White Blood Count 4.8 K/mm3 (4.4-11.0)
[2021-05-07 06:12] LABS: Anion Gap 7 (5-15); BUN 7 mg/dL (7-18); BUN/Creat Ratio 13.6 RATIO (10-20); Calcium,Total 8.6 mg/dL (8.5-10.1); Chloride 114 mmol/L (98-107); Creatinine, Serum 0.52 mg/dL (0.55-1.02); EST Glomerular Filtration Rate 127 mL/min (>60); Est Glom Filt Rate - Afr Amer 153 mL/min (>60); Estimated Creatinine Clearance 41.76 ml/min; Glucose 105 mg/dL (74-106); Potassium 4.1 mmol/L (3.5-5.1); Sodium Level 141 mmol/L (136-145)
[2021-05-07 07:00] VITALS: PULSE 47
--- NOTE | 2021-05-07 09:19 | CASEMGMT ---
MASOUD received a call from Lucila at [facility] and patient was approved. MASOUD notified PAUL Michaud. Bhumika Ribera AUT[employer] WASH BUFFER JORDY
[2021-05-07 09:21] VITALS: BP 143/74; PULSE 55; RESP 18; TEMP 36.3; O2SAT 97
[2021-05-07] MEDS: Ceftriaxone 1 GM/50 ML BAG IV (09:22)
[2021-05-07] MEDS: levETIRAcetam 750 MG Tablet PO (09:23)
[2021-05-07] MEDS: Enoxaparin 40 MG/0.4 ML Syringe SC (09:23)
--- NOTE | 2021-05-07 10:11 | PCM.DC ---
Discharge Instructions Follow Up Care Test Results: Test results from this visit will be discussed in further detail at your follow-up appointment, if applicable. Discharge Plan Admission Admit Date/Time: 05/02/21 20:38 Attending Provider: Pavel Curtis Primary Care Provider: Rex Bryan Consulting Providers: Jared Burnett Discharge Orders/Prescriptions Prescriptions: No Action levothyroxine 175 MCG tablet 175 mcg PO QODAY RF: 0 levetiracetam 750 mg tablet 750 mg PO BID RF: 0
--- NOTE | 2021-05-07 10:55 | PCM.TXEXTCAR ---
Documented by User: Jaswant MILLER 05/07/21 11:04 Diet 05/02/21 20:40 Diet: Regular - General Food consistency:: Finger Foods Liquid Consistency:: Regular/Thin Type of Dietary Supplement:: Magic Cup Dessert Is pt able to select menu?: No Diet Comments: finger foods, softer foods, bite size pieces please. Magic cup BID w/ L & D Wound(s) Bilateral Knees: Wound Type: Abrasion Chin: Wound Type: Skin Tear Bottom Lip: Wound Type: Skin Tear Therapies Weight Bearing: Non weight bearing Problem/Diagnosis (1) Closed fracture of medial condyle of left femur: Status: Acute Allergies/Procedures Done in Hospital Allergies No Known Allergies Allergy (Verified 10/24/16 16:56) Type of Care/Length of Stay Estimated LOS: Convalescent Care Less Than 30 days Type of Care Needed: Skilled Rehab Potential: Good Prognosis: Good Additional Orders/Day of Discharge Day of Discharge: 05/07/21 Dietary and Speech Recommendations Dietitian Recommendations/Changes: Continue general Regular with soft/finger foods at meals. Will add Magic Cup BID w/ lunch and dinner. Offer additional ONS as needed . Discharge Plan Admission Admit Date/Time: 05/02/21 20:38 Primary Reason for Your Visit: Fall Attending Provider: Pavel Curtis Primary Care Provider: Rex Bryan Consulting Providers: Jared Burnett Discharge Orders/Prescriptions Prescriptions: New levothyroxine 125 mcg capsule 125 mcg PO DAILY Qty: 30 RF: 0 Continued levetiracetam 750 mg tablet 750 mg PO BID RF: 0 Discontinued levothyroxine 175 MCG tablet 175 mcg PO QODAY RF: 0 Referrals / Follow Up: Rex Bryan DO [Primary Care Provider] - Within 2 Weeks Andre Cruz MD [STAFF PHYSICIAN] - Jared Burnett MD [STAFF PHYSICIAN] - Within 2 Weeks Disposition Disposition (needs filled in before D/C Order can be placed): Custodial Facility Documented by User: Dr. Pavel Curtis MD 05/07/21 14:30 Allergies/Procedures Done in Hospital Allergies No Known Allergies Allergy (Verified 10/24/16 16:56) Discharge Plan Admission Admit Date/Time: 05/02/21 20:38 Primary Reason for Your Visit: Fall Attending Provider: Pavel Curtis Primary Care Provider: Rex Bryan Consulting Providers: Jared Burnett Discharge Orders/Prescriptions Prescriptions: New levothyroxine 125 mcg capsule 125 mcg PO DAILY Qty: 30 RF: 0 Continued levetiracetam 750 mg tablet 750 mg PO BID RF: 0 Discontinued levothyroxine 175 MCG tablet 175 mcg PO QODAY RF: 0 Referrals / Follow Up: Rex Bryan DO [Primary Care Provider] - Within 2 Weeks Andre Cruz MD [STAFF PHYSICIAN] - Jared Burnett MD [STAFF PHYSICIAN] - Within 2 Weeks Disposition Disposition (needs filled in before D/C Order can be placed): Custodial Facility
--- NOTE | 2021-05-07 11:04 | DS.PCM_ITS ---
Documented by User: Jaswant MILLER 05/07/21 11:10 Providers Date of Admission: 05/02/21 Primary Care Physician: Dr. Rex Bryan, DO Consultations 05/03/21 10:44 Consult: Orthopedics Routine Consulting Provider: Jared Burnett Reason for Consult: Lt medial condyle fracture, EMERGENT Consult: No MD Notified: Yes Date Notified: 05/03/21 Time Notified: 10:44 Method of Notification: telephone Reason For Visit: LEFT MEDIAL FEMORAL CONDYLE FRACTURE Diagnosis Discharge Diagnosis (1) Closed fracture of medial condyle of left femur: Status: Acute Code(s): S72.432A - Displaced fracture of medial condyle of left femur, initial encounter for closed fracture Medications at Discharge Home Medications levetiracetam 750 mg PO BID 05/02/21 levothyroxine 125 mcg PO DAILY #30 cap 05/07/21 Hospital Course Summary of Care Provided Minutes Spent on Discharge: 35 Hospital Course: See subjective for patient presentation. Discharge planning; pre-CERT approved at [facility], discharge today. 1) femoral condyle fracture Diagnosed at outside hospital. Plan; knee immobilization per Orthopedics. Follow up with orthopedics within the next two weeks. 2) acute cystitis UA obtained at outside hospital demonstrated abnormal UA. Vital signs stable and patient is afebrile. CBC demonstrates no leukocytosis. Plan; Abx discontinued on discharge due to unremarkable presentation throughout admission. 3) seizure Patient is on Keppra at home and is administered by her Patients reports that he gives the Keppra as prescribed, however sometimes patient refuses to take the pills as he finds the pills in the bed. Plan; continue Keppra, follow-up with outpatient neurologist within the next 2 weeks. 4) hypernatremia Resolved. 5) Hypokalemia Resolved. 6) Hypothyroidism Patient's home prescription of Synthroid has been changed to 125 mcg daily due to low TSH and reports from that patient has lost 40 pounds over the past few months. Plan; continue levothyroxine at 125 mg daily, follow-up with primary care provider within the next 2 weeks. Patient seen by Jaswant Peter PA-C, under the supervision of Dr. Curtis Physical Exam Narrative Patient is a 65-year-old female lying in bed, alert and oriented x3. Patient cannot provide insight into her current condition or symptoms due to her severe dementia. not in the room at the time of my examination. Const alert Constitutional Narrative: Patient at baseline level of orientation and conscious ness, due to severe dementia. HEENT normocephalic, head/scalp atraumatic and hearing grossly normal bilaterally Eyes PERRL, EOMs intact bilaterally and conjunctivae normal Neck no lymphadenopathy, supple and no JVD Resp normal respiratory effort, no retractions and no use of accessory muscles Cardio regular rate, regular rhythm and no murmurs GI normal to inspection, nondistended, normoactive bowel sounds, soft to palpation and non-tender Extremity normal to inspection and full ROM Skin no rashes or lesions noted and no wounds Neuro CN's II-XII intact bilaterally Psych affect normal Weight / BMI Weight Weight: 182 lb 5.156 oz Body Mass Index (BMI) 34.4 ABG / Lab / Microbiology Data Result Diagrams: 05/07/21 05:36 05/07/21 05:36 Laboratory: Laboratory Results - last 24 hr 05/07/21 05/07/21 05:36 05:36 WBC 4.8 RBC 4.71 Hgb 14.5 Hct 43.9 MCV 93.2 MCH 30.8 MCHC 33.0 RDW Std Deviation 42.1 RDW Coeff of Karen 12.2 Plt Count 249 MPV 10.3 Immature Gran % (Auto) 0.200 Neut % (Auto) 63.5 Lymph % (Auto) 20.7 Stephens % (Auto) 8.1 Eos % (Auto) 6.7 H Baso % (Auto) 0.8 Absolute Neuts (auto) 3.0 Absolute Lymphs (auto) 0.99 Nucleated RBC % 0 Sodium 141 Potassium 4.1 Chloride 114 H Carbon Dioxide 20.0 L Anion Gap 7 BUN 7 Creatinine 0.52 L Estim Creat Clear Calc 41.76 Est GFR (MDRD) Af Amer 153 Est GFR (MDRD) Non-Af 127 BUN/Creatinine Ratio 13.6 Glucose 105 Calcium 8.6 Meaningful Use Info Meaningful Use Diagnoses (Choose all that apply): None applicable Discharge Plan Admission Admit Date/Time: 05/02/21 20:38 Primary Reason for Your Visit: Fall Attending Provider: Pavel Curtis Primary Care Provider: Rex Bryan Consulting Providers: Jared Burnett Discharge Orders/Prescriptions Prescriptions: New levothyroxine 125 mcg capsule 125 mcg PO DAILY Qty: 30 RF: 0 Continued levetiracetam 750 mg tablet 750 mg PO BID RF: 0 Discontinued levothyroxine 175 MCG tablet 175 mcg PO QODAY RF: 0 Referrals / Follow Up: Rex Bryan DO [Primary Care Provider] - Within 2 Weeks Andre Cruz MD [STAFF PHYSICIAN] - Jared Burnett MD [STAFF PHYSICIAN] - Within 2 Weeks Disposition Disposition (needs filled in before D/C Order can be placed): Residential Facility Documented by User: Dr. Pavel Curtis MD 05/07/21 14:35 Providers Date of Admission: 05/02/21 Reason For Visit: LEFT MEDIAL FEMORAL CONDYLE FRACTURE Medications at Discharge Home Medications levetiracetam 750 mg PO BID 05/02/21 levothyroxine 125 mcg PO DAILY #30 cap 05/07/21 Hospital Course Summary of Care Provided Hospital Course: This patient was seen in conjunction with PAUL Aguayo. I have independently interviewed and examined the patient and reviewed pertinent history, examination findings, laboratory and plan of management. I have reviewed the note and agree with the documented findings with the few additional points. In brief, patient is admitted for fall and as per had a seizure with staring look and rigidity. Seizure episode most probably secondary to noncompli ance. CT brain showed no acute findings. Continue PT and OT. Patient also has acute cystitis and is on Rocephin. UA was abnormal but patient could not give history of dysuria or increase frequency urgency as she is mute. Empirically treated for 5 days of IV Rocephin. Left femoral medial condyle fracture on knee immobilizer. PT and OT evaluation and management. Follow-up Dr. Burnett as an outpatient. Other comorbidities mentioned is hyponatremia probably secondary to dehydration:Stable. Discharge medication reconciliation done. Discharge follow-up instructions completed. Discharge process discussed with the patient and all questions were answered to patient's satisfaction.Discharge to SNF. Total time spent, exact 35 minutes on discharge meds reconciliation, examination, coordination of care with nurses and ancillary staff, review of imaging and blood test and discussion with the patient on follow-up instructions I have discussed my assessment with PAUL Aguayo and orders have been reviewed. Physical Exam Narrative There is no significant change from previous day. Patient still mute and nonve rbal and as per that is her baseline. Patient completed 5 days of IV ceftriaxone. No urine culture but had UA in outside facility. General: Awake, mute, nonresponsive to verbal questions HEENT: Atraumatic, PERRLA, EOMI, Normocephalic Oral: No Gingival or Mucosal Lesions/ Ulcerations Neck: Supple, No JVD, Negative Carotid Bruits Lungs: Air entry diminished in bilateral lung bases. No crepitation/rhonchi Cardiovascular: Regular rate, Regular Rhythm, Normal S1, Normal S2, No murmurs Abdomen: Bowel Sounds Present, Soft, Non Tender, Non-Distended : No renal angle tenderness. No suprapubic tenderness. Extremities: No edema, Capillary Refill Less than 3 Seconds Skin: No rashes, No breakdown Musculoskeletal: Left knee on immobilizer. On nonweightbearing. Neurological: Cranial nerves II-XII grossly intact, Deep Tendon Reflexes 2+/4 and Symmetrical, Neuro grossly intact Psych/Mental Status: Flat affect. ABG / Lab / Microbiology Data Result Diagrams: 05/07/21 05:36 05/07/21 05:36 Discharge Plan Admission Admit Date/Time: 05/02/21 20:38 Primary Reason for Your Visit: Fall Attending Provider: Pavel Curtis Primary Care Provider: Rex Bryan Consulting Providers: Jared Burnett Discharge Orders/Prescriptions Prescriptions: New levothyroxine 125 mcg capsule 125 mcg PO DAILY Qty: 30 RF: 0 Continued levetiracetam 750 mg tablet 750 mg PO BID RF: 0 Discontinued levothyroxine 175 MCG tablet 175 mcg PO QODAY RF: 0 Referrals / Follow Up: Rex Bryan DO [Primary Care Provider] - Within 2 Weeks Andre Cruz MD [STAFF PHYSICIAN] - Jared Burnett MD [STAFF PHYSICIAN] - Within 2 Weeks Disposition Disposition (needs filled in before D/C Order can be placed): Residential Facility Charges/Coding Visit Charges Inpatient E&M: 37904 Disch Hosp
--- NOTE | 2021-05-07 12:28 | CASEMGMT ---
SW spoke with patient's and let him know patient was approved to go to [facility]. SW let him know that they will allow him 1 visit today or tomorrow and re-assess if there appears to be a need for more. He verbalized understanding. Bhumika SPENCE
--- NOTE | 2021-05-07 14:40 | NURSING ---
called report to Dawna KEBEDE at [facility]
[2021-05-07 15:00] VITALS: PULSE 56
--- NOTE | 2021-05-07 15:02 | CASEMGMT ---
MASOUD faxed orders to [facility] along with negative COVID test. MASOUD arranged for patient to get picked up at 400 via cot. MASOUD notified patient, her , RN, Lucila at [facility], engineering secretary, and discharge rn. PASRR was completed on [facility] as patient is observation status. Plan: d/c to [facility] under skilled level of care on a PASRR as she is observation status. [facility] transported via bariatric cot. Bhumika SPENCE
[2021-05-07 15:20] VITALS: BP 97/57; PULSE 56; RESP 16; TEMP 36.7; O2SAT 93
== END 2021-05-07 11:02 ==
PROVIDERS: Hospitalist; Physician Assistant; PCP Family Medicine; Visit Provider Internal Medicine
DX: S72.432A Displaced fracture of medial condyle of left femur, initial encounter for closed fracture (principal); E87.0 Hyperosmolality and hypernatremia; N30.00 Acute cystitis without hematuria; W19.XXXA Unspecified fall, initial encounter; Y93.01 Activity, walking, marching and hiking; Y92.9 Unspecified place or not applicable; Y99.9 Unspecified external cause status; F03.90 Unspecified dementia, unspecified severity, without behavioral disturbance, psychotic disturbance, mood disturbance, and anxiety; E03.9 Hypothyroidism, unspecified; E87.6 Hypokalemia; G40.909 Epilepsy, unspecified, not intractable, without status epilepticus; Z79.899 Other long term (current) drug therapy; Z91.14 Patient's other noncompliance with medication regimen
CPT/HCPCS: 36415; 80048; 82306; 84443; 85025; 87426; 93306; 96361; 96365; 96366; 96367; 96372; 97110; 97162; 97166; 97530; 97535; 97802; 97803; 99218; J7030; A4216; G0378; G0379; J7799

== ENCOUNTER 2024-08-03 10:04 | Emergency (ER) | payer MEDICARE, SELFPAY ==
[2024-08-03 10:04] VITALS: BP 124/73; PULSE 55; RESP 15; TEMP 35.7; O2SAT 100
--- NOTE | 2024-08-03 10:34 | CT_ITS ---
STUDY: CT CERVICAL SPINE WITHOUT CONTRAST REASON FOR EXAM: Female, 68 years old. History of fall. RADIATION DOSAGE (If Supplied By Facility): CTDIvol = ( 16.91 ) mGy, DLP = ( 340.97 ) mGycm TECHNIQUE: High resolution transaxial imaging was performed without contrast material. Sagittal and coronal images were reconstructed. Individualized dose optimization techniques were used for this CT. COMPARISON: None FINDINGS: Normal craniovertebral junction. Normal anterior atlantoaxial articulation. Normal odontoid process. Normal cervical lordosis. Normal vertebral bodies and posterior osseous elements. C2-3: Normal endplates. Normal disc height and morphology. Normal central canal and intervertebral neuroforamina. C3-4: Mild degree of disc space narrowing. C4-5: Mild degree of disc space narrowing. Facet joint osteoarthritis and hypertrophy worse on the right side. Mild degree of right neural foraminal stenosis. C5-6: Marked degree of disc space narrowing and spondylosis. Mild degree of bilateral neural foraminal stenosis. C6-7: Marked degree of disc space narrowing. Spondylosis. Uncovertebral arthrosis. Bilateral neural foraminal stenosis. C7-T1: Normal endplates. Normal disc height and morphology. Normal central canal and intervertebral neuroforamina. Normal visualized soft tissue structures. CT/Spine Cervical without Contras IMPRESSION: Multilevel degenerative changes, as described above. Electronically Signed: Eric Danielson MD at 10:53 EDT ,
--- NOTE | 2024-08-03 10:34 | CT_ITS ---
STUDY: CT BRAIN WITHOUT CONTRAST REASON FOR EXAM: Female, 68 years old. Head injury RADIATION DOSAGE (If Supplied By Facility): CTDIvol = ( 44.99 ) mGy, DLP = ( 863.60 ) mGycm TECHNIQUE: Transaxial CT imaging of the brain was performed without administration of intravenous contrast material. Individualized dose optimization techniques were used for this CT. COMPARISON: No relevant priors. FINDINGS: Normal soft tissue structures. There is hyperostosis frontalis internus. There is disproportionate enlargement of the lateral and third ventricles, as compared to the extra-axial spaces. The findings suggest normal pressure hydrocephalus (NPH). There are areas of decreased attenuation within the white matter tracts of the supratentorial brain, consistent with microvascular disease changes. Normal basal ganglia and thalami. Normal brainstem. Normal cerebellum. There is no intracranial hemorrhage. There are no findings of an acute ischemic infarction. Atherosclerotic calcification of the cavernous portions of the internal carotid arteries bilaterally. Normal visualized paranasal sinuses. CT/Brain/Head without Contrast IMPRESSION: Disproportionate enlargement of the lateral and third ventricles as compared to the extra-axial spaces suggestive of normal pressure hydrocephalus. Electronically Signed: Eric Danielson MD at 10:51 EDT ,
--- NOTE | 2024-08-03 11:31 | EDS_ITS ---
HPI History of Present Illness Chief Complaint: Fall Informant: spouse/S.O. Narrative Narrative: Patient is a 68-year-old female with past medical history of hypothyroidism and seizure disorder and dementia. She does not talk at baseline. states that roughly 1-1/2 hours prior to arrival that she fell from her wheelchair. states he was in the kitchen cooking while she was in the wheelchair in the next room when he heard a thud. He states he went to her quickly and she was awake and at her baseline mental status. He was able to help her up and get her to the breakfast table where she was able to sit and eat breakfast. He states she has been at her baseline mental status but with the trauma to the head/face there was concern for underlying injury and had concern that the cut underneath her right eye may need closed so therefore she was brought in for evaluation Based on the patient's dementia she cannot offer any further history [facility] Medical History FH: total knee replacement Dementia Seizure Hypothyroid Home Medications ?Medication ?Instructions ?Recorded ?Last Taken ?Type levetiracetam 750 mg tablet 750 mg PO BID 05/02/21 05/02/21 History levothyroxine 125 mcg capsule 125 mcg PO DAILY #30 caps 05/07/21 Unknown Rx Allergy/AdvReac Type Severity Reaction Status Date / Time No Known Allergies Allergy Verified 08/03/24 10:07 Family History Father Cancer Social History Smoking Status: Never smoker ROS ROS ED ROS Narrative Review of systems unable to be obtained secondary to dementia EXAM Physical Exam Const Vital Signs: 08/03/24 10:04 08/03/24 10:13 08/03/24 12:05 Temperature 96.2 F L 97.6 F L Temperature Source Temporal Pulse Rate 55 L 55 L Respiratory Rate 15 16 Respiratory Effort Normal Respiratory Depth Normal Respiratory Pattern Normal Blood Pressure 124/73 H 139/71 H Blood Pressure Mean 90 93 Pulse Ox 100 100 Oxygen Delivery Method Room Air Room Air Positive well nourished and well developed General Appearance ED: well developed HEENT HEENT Narrative: Patient has a 1 x 2 hematoma to the right frontal portion of the scalp. There is a small half centimeter circular abrasion in the center of this with minimal ooze of blood and no retained foreign body Patient has a 1 cm dermal layer deep semilinear/jagged laceration underneath the right eye also with minimal ooze of blood and no foreign body No signs of depressed or basilar skull fracture No septal hematoma No obvious dental fracture noted Eyes PERRL and EOMs intact bilaterally Eyes Narrative: No hyphema Neck supple Neck Narrative: No bony deformity or step-off of the cervical spine no obvious pain elicited with palpation of the midline Chest Wall palpation of chest normal Chest Narrative: No bony deformity or crepitance Resp normal respiratory effort and clear to auscultation bilaterally Resp Narrative: Breath sounds are diminished throughout but overall clear to auscultation Cardio regular rate and regular rhythm GI normal to inspection, nondistended, normoactive bowel sounds, non-tender, non- distended and no masses Auscultation: normoactive bowel sounds Palpation: soft Back/Spine Back/Spine Narrative: No bony deformity or step-off of the thoracic or lumbar spine no pain elicited with palpation either Extremity normal to inspection Extremity Narrative: Pelvis is stable there is no shortening or external rotation of either lower extremity No pain with palpation in the inguinal region Patient can move all extremities at baseline without pain Neuro Neuro Narrative: Patient is at her baseline mental status without focal neurologic finding Psych Psych Narrative: Patient has a flat affect Skin Skin Narrative: Hematoma and laceration to the right side of the forehead/face as documented above MDM MDM MDM Narrative Medical decision making narrative: reported a mechanical fall and therefore I had no concern for a cardiac or syncope workup. As patient is nonverbal and did strike her head there is concern for skull fracture versus traumatic subdural or subarachnoid hemorrhage or potential orbital floor fracture. There is also concern for potential cervical compression fracture or spinal thesis so CTs of the head and cervical spine were obtained. As she did not have any signs of bony injury and can move all extremities at baseline concern for long bone fracture or hip fracture was low and I felt no need for supplemental x-ray. Imaging studies revealed no signs of acute trauma. Head CT did document potential normal pressure hydrocephalus which I discussed with the who reports that this has been known and worked up already. Therefore at this time as the imaging studies revealed no signs of acute trauma patient is otherwise safe for discharge I do feel that the patient's dermal layer laceration along the right lower orbit would require closure. Based on its shallow depth I felt it was amenable to Dermabond. Therefore the wound was cleaned with chlorhexidine and manual pressure was then applied bring the wound edges together with good approximation. Dermabond was applied over top the wound edges to hold the wound together well with good approximation. Patient tolerated the procedure well without complication History & Record Review Discussion w/independent historian: Family Radiography Diagnostic Testing: Clinical Impression(s) from Imaging Studies Brain CT 08/03/24 10:34 IMPRESSION: Disproportionate enlargement of the lateral and third ventricles as compared to the extra-axial spaces suggestive of normal pressure hydrocephalus. Electronically Signed: Eric Danielson MD at 10:51 EDT , Cervical Spine CT 08/03/24 10:34 IMPRESSION: Multilevel degenerative changes, as described above. Electronically Signed: Eric Danielson MD at 10:53 EDT , Discharge Plan Triage Chief Complaint: Fall ED Provider: Bennie Castaneda Dx/Rx/DC Orders Clinical Impression: Closed head injury, Facial laceration, Hypothyroidism, Dementia Instructions: ED Head Injury (Adult), ED Laceration, Face: Skin Glue Prescriptions: No Action levetiracetam 750 mg tablet 750 mg PO BID levothyroxine 125 mcg capsule 125 mcg PO DAILY Qty: 30 0RF Primary Care Provider: Rex Bryan Referrals: Rex Bryan DO [Primary Care Provider] - Activity Restrictions/Additional Instructions: Your head CT and cervical spine CT revealed no signs of brain bleed or fracture. The laceration below the right eye has been closed with Dermabond/skin glue. This will fall off on its own like a scab over the course of 10 to 14 days. If any further concerns please return to the ER for repeat evaluation Print Language: British Disposition Disposition: Home, Self Care Discharge Date/Time: 08/03/24 12:05
[2024-08-03 12:05] VITALS: BP 139/71; PULSE 55; RESP 16; TEMP 36.4; O2SAT 100
== END 2024-08-03 12:05 | disposition home or self-care (01) ==
PROVIDERS: Emergency Provider Emergency Medicine; PCP Family Medicine; Visit Provider Emergency Medicine
DX: S01.81XA Laceration without foreign body of other part of head, initial encounter (principal); F03.90 Unspecified dementia, unspecified severity, without behavioral disturbance, psychotic disturbance, mood disturbance, and anxiety; G40.909 Epilepsy, unspecified, not intractable, without status epilepticus; E03.9 Hypothyroidism, unspecified; V00.811A Fall from moving wheelchair (powered), initial encounter; Z96.659 Presence of unspecified artificial knee joint; Z79.899 Other long term (current) drug therapy
CPT/HCPCS: 12011; 70450; 72125; 99282

== ENCOUNTER 2024-09-06 15:45 | Emergency (ER) | payer MEDICARE, SELFPAY ==
[2024-09-06 15:47] VITALS: BP 155/127; PULSE 88; RESP 19; TEMP 36.4; O2SAT 97; BMI 29.7
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
[2024-09-06] MEDS: Diphth,Pertuss(Acell),Tet Vac 0.5 ML Vial IM (16:18)
[2024-09-06] MEDS: Lidocaine 1% (20 ml mdv) 20 ML Vial 5 ML INFILT (16:18)
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
[2024-09-06 17:34] VITALS: BP 110/99; PULSE 78; RESP 19; O2SAT 95
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
[2024-09-06 18:53] VITALS: BP 108/89; PULSE 77; RESP 19
[2024-09-06 19:12] VITALS: BP 98/86; PULSE 70; RESP 18; TEMP 36.4; O2SAT 95
== END 2024-09-06 19:26 | disposition home or self-care (01) ==
PROVIDERS: Emergency Provider Emergency Medicine; PCP Family Medicine; Visit Provider Emergency Medicine
DX: S01.01XA Laceration without foreign body of scalp, initial encounter (principal); F03.90 Unspecified dementia, unspecified severity, without behavioral disturbance, psychotic disturbance, mood disturbance, and anxiety; G40.909 Epilepsy, unspecified, not intractable, without status epilepticus; S09.90XA Unspecified injury of head, initial encounter; V59.59XA Passenger in pick-up truck or van injured in collision with other motor vehicles in traffic accident, initial encounter; R93.7 Abnormal findings on diagnostic imaging of other parts of musculoskeletal system; E03.9 Hypothyroidism, unspecified; Z96.659 Presence of unspecified artificial knee joint; Z79.890 Hormone replacement therapy; Z79.899 Other long term (current) drug therapy
CPT/HCPCS: 12002; 99283; 70450; 71045; 72125; 72170; 72192; 90715; A4216

== ENCOUNTER 2024-09-09 12:23 | Inpatient (IN) | payer MEDICARE, MEDICAID, SELFPAY ==
[2024-09-09] VITALS (7 sets, daily range): BP systolic 116–137; BP diastolic 74–101; PULSE 50–99; RESP 12–18; TEMP 36.1–36.8; O2SAT 93–100; BMI 29.0; BMI 27.1
[2024-09-09] MEDS: Ondansetron 4 MG/2 ML Vial IV (13:42)
[2024-09-09] MEDS: Morphine 2 MG/ML Syringe IV ×2 (13:42→18:21)
[2024-09-09 13:59] LABS: Absolute Lymphocyte Count 1.05 X10^3/uL (0.83-4.51); Absolute Neutrophil Count 3.7 X10^3/uL (2.0-7.7); Basophil# 0.05 X10^3/uL; Basophil% 0.9 % (0-1); Eosinophil# 0.14 X10^3/uL; Eosinophils% 2.6 % (0-5); Hemoglobin 13.6 g/dL (12.0-15.0); Lymphocyte # 1.05 X10^3/ul (0.83-4.51); Lymphocyte % 19.7 % (19-41); Mean Corp Hgb Conc 32.4 g/dL (32-36); Mean Corpuscular Hgb 30.2 pg (27.0-32.0); Mean Corpuscular Volume 93.1 fL (81-99); Mean Platelet Vol. 10.7 fl (6.2-12.0); Monocyte# 0.35 X10^3/uL; Monocyte% 6.6 % (0-10); NRBC Flagged by Analyzer 0 % (0-5); Neutrophil # 3.74 X10^3/uL (2.7-7.7); POSITIVE COUNT YES; Platelet Count 200 K/mm3 (150-450); RBC Distribution Width CV 11.9 % (11.6-14.6); RBC Distribution Width SD 41.1 fl (35.1-43.9); Red Blood Count 4.51 M/mm3 (4.2-5.4); White Blood Count 5.3 K/mm3 (4.4-11.0)
[2024-09-09 14:20] LABS: ALB/GLOB Ratio 0.8 RATIO (0.9-2.4); AST(SGOT) 22 U/L (15-37); Alanine Aminotransfer ALT/SGPT 24 U/L (13-56); Albumin, Serum 3.5 g/dL (3.2-5.0); Alkaline Phosphatase 160 U/L (45-117); Anion Gap 4 (5-15); BUN 21 mg/dL (7-18); BUN/Creat Ratio 27.5 RATIO (10-20); Calcium,Total 9.7 mg/dL (8.5-10.1); Chloride 112 mmol/L (98-107); Creatinine, Serum 0.76 mg/dL (0.55-1.02); EST Glomerular Filtration Rate 80 mL/min (>60); Est Glom Filt Rate - Afr Amer 96 mL/min (>60); Estimated Creatinine Clearance 59.26 ml/min; Globulin 4.2 g/dL (2.2-4.2); Glucose 86 mg/dL (74-106); Potassium 4.1 mmol/L (3.5-5.1); Protein, Total 7.7 g/dL (6.4-8.2); Sodium Level 145 mmol/L (136-145)
[2024-09-09 14:41] LABS: Differential Comment SCANNED; Differential Indicated SCAN CRITERIA MET
[2024-09-09 14:44] LABS: Mucous, Urine 0 SEEN /hpf (<or=2+)
[2024-09-09 14:49] LABS: Color, Urine Yellow (Yellow); Glucose, Dipstick Normal (Normal); Ketone-Dipstick Negative (Negative); Leukocyte Esterase-Dipstick 500 /ul (Negative); Nitrite-Dipstick Positive (Negative); Occult Blood-Urine 250 /ul (Negative); Protein-Dipstick 100 mg/dl (Negative); Urine Bilirubin Dipstick Negative (Negative); Urine Clarity Turbid (Clear); Urine Urobilinogen Normal (Normal)
[2024-09-09 14:56] LABS: Bacteria 3+ /hpf (None Seen); Squamous Epithelial Cells - UA 5-10 SEEN /hpf (5-10); White Blood Cells 50-100 SEEN /hpf (0-5)
[2024-09-09 14:57] LABS: Red Blood Cells-Urine 25-50 SEEN /hpf (0-5)
[2024-09-09] MEDS: Ceftriaxone 1 GM/50 ML BAG IV (15:59)
[2024-09-09 18:21] LABS: Magnesium 2.6 mg/dL (1.6-2.6)
[2024-09-09] MEDS: Dext 5%-0.45% NS 1,000 ML 100 ML IV (20:28)
[2024-09-09] MEDS: Enoxaparin 40 MG/0.4 ML Syringe SC (20:31)
[2024-09-09] MEDS: Senna/Docusate Sodium 1 Tablet 2 TABLET PO (20:31)
[2024-09-09] MEDS: levETIRAcetam 1,000 MG Tablet 1000 MG PO (20:31)
[2024-09-10 04:24] VITALS: BP 134/62; PULSE 62; RESP 16; TEMP 37; O2SAT 97
[2024-09-10 04:50] LABS: Absolute Lymphocyte Count 0.58 X10^3/uL (0.83-4.51); Absolute Neutrophil Count 5.8 X10^3/uL (2.0-7.7); Basophil# 0.03 X10^3/uL; Basophil% 0.4 % (0-1); Eosinophil# 0.03 X10^3/uL; Eosinophils% 0.4 % (0-5); Hematocrit 38.1 % (37-47); Hemoglobin 12.4 g/dL (12.0-15.0); Lymphocyte # 0.58 X10^3/ul (0.83-4.51); Lymphocyte % 8.4 % (19-41); Mean Corp Hgb Conc 32.5 g/dL (32-36); Mean Corpuscular Volume 92.3 fL (81-99); Monocyte# 0.42 X10^3/uL; Monocyte% 6.1 % (0-10); NRBC Flagged by Analyzer 0 % (0-5); Neutrophil % 84.4 % (47-70); POSITIVE DIFFERENTIAL YES; Platelet Count 305 K/mm3 (150-450); RBC Distribution Width CV 11.9 % (11.6-14.6); RBC Distribution Width SD 40.2 fl (35.1-43.9); Red Blood Count 4.13 M/mm3 (4.2-5.4); White Blood Count 6.9 K/mm3 (4.4-11.0)
[2024-09-10] MEDS: Levothyroxine 125 MCG Tablet PO (05:07)
[2024-09-10 05:33] LABS: Anion Gap 6 (5-15); BUN 20 mg/dL (7-18); BUN/Creat Ratio 21.9 RATIO (10-20); Calcium,Total 9.1 mg/dL (8.5-10.1); Chloride 110 mmol/L (98-107); Creatinine, Serum 0.92 mg/dL (0.55-1.02); EST Glomerular Filtration Rate 65 mL/min (>60); Est Glom Filt Rate - Afr Amer 78 mL/min (>60); Estimated Creatinine Clearance 51.92 ml/min; Glucose 156 mg/dL (74-106); Potassium 3.6 mmol/L (3.5-5.1); Sodium Level 141 mmol/L (136-145); Thyroid Stim Hormone (TSH) 0.323 uIU/mL (0.358-3.740)
[2024-09-10] MEDS: Dext 5%-0.45% NS 1,000 ML 100 ML IV (06:37)
[2024-09-10 09:19] VITALS: BP 126/83; PULSE 64; RESP 18; TEMP 36.6; O2SAT 98
[2024-09-10 09:34] VITALS: O2SAT 99
[2024-09-10] MEDS: levETIRAcetam 1,000 MG Tablet 1000 MG PO ×2 (10:01→21:06)
[2024-09-10] MEDS: Senna/Docusate Sodium 1 Tablet 2 TABLET PO ×2 (10:02→21:06)
[2024-09-10] MEDS: Enoxaparin 40 MG/0.4 ML Syringe SC (10:02)
[2024-09-10] MEDS: Ceftriaxone 1 GM/50 ML BAG IV (10:02)
[2024-09-10 15:00] VITALS: BP 130/73; PULSE 66; RESP 16; TEMP 36.7; O2SAT 98
[2024-09-10 21:02] VITALS: BP 109/97; PULSE 72; RESP 16; TEMP 36.7; O2SAT 100
[2024-09-11 03:37] VITALS: BP 117/65; PULSE 64; RESP 16; TEMP 36.8; O2SAT 99
[2024-09-11] MEDS: Levothyroxine 125 MCG Tablet PO (05:48)
[2024-09-11] MEDS: Menthol/Lanolin/Calamine/Znox 113 GM Tube 1 APPLIC TOPICAL ×2 (05:48→21:48)
[2024-09-11 06:33] LABS: Absolute Lymphocyte Count 0.94 X10^3/uL (0.83-4.51); Absolute Neutrophil Count 5.1 X10^3/uL (2.0-7.7); Basophil# 0.03 X10^3/uL; Basophil% 0.5 % (0-1); Eosinophil# 0.04 X10^3/uL; Eosinophils% 0.6 % (0-5); Hematocrit 39.2 % (37-47); Hemoglobin 12.6 g/dL (12.0-15.0); Lymphocyte # 0.94 X10^3/ul (0.83-4.51); Lymphocyte % 14.2 % (19-41); Mean Corp Hgb Conc 32.1 g/dL (32-36); Mean Corpuscular Hgb 29.7 pg (27.0-32.0); Mean Corpuscular Volume 92.5 fL (81-99); Mean Platelet Vol. 9.8 fl (6.2-12.0); Monocyte# 0.54 X10^3/uL; Monocyte% 8.1 % (0-10); NRBC Flagged by Analyzer 0 % (0-5); Neutrophil # 5.07 X10^3/uL (2.7-7.7); Neutrophil % 76.3 % (47-70); Platelet Count 278 K/mm3 (150-450); RBC Distribution Width CV 11.9 % (11.6-14.6); Red Blood Count 4.24 M/mm3 (4.2-5.4); White Blood Count 6.6 K/mm3 (4.4-11.0)
[2024-09-11 07:00] LABS: Anion Gap 4 (5-15); BUN 15 mg/dL (7-18); BUN/Creat Ratio 21.6 RATIO (10-20); Calcium,Total 9.2 mg/dL (8.5-10.1); Chloride 111 mmol/L (98-107); Creatinine, Serum 0.69 mg/dL (0.55-1.02); EST Glomerular Filtration Rate 89 mL/min (>60); Est Glom Filt Rate - Afr Amer 108 mL/min (>60); Estimated Creatinine Clearance 59.71 ml/min; Glucose 110 mg/dL (74-106); Potassium 3.7 mmol/L (3.5-5.1); Sodium Level 140 mmol/L (136-145)
[2024-09-11] MEDS: oxyCODONE 5 MG Tablet PO (07:53)
[2024-09-11] MEDS: Ceftriaxone 1 GM/50 ML BAG IV (07:53)
[2024-09-11] MEDS: levETIRAcetam 1,000 MG Tablet 1000 MG PO ×2 (07:54→21:49)
[2024-09-11] MEDS: Enoxaparin 40 MG/0.4 ML Syringe SC (07:54)
[2024-09-11] MEDS: Senna/Docusate Sodium 1 Tablet 2 TABLET PO ×2 (07:54→21:49)
[2024-09-11 08:10] VITALS: O2SAT 100
[2024-09-11 09:35] VITALS: BP 102/65; PULSE 61; RESP 16; TEMP 36.6; O2SAT 98
[2024-09-11 15:34] VITALS: BP 108/57; PULSE 66; RESP 15; TEMP 36.6; O2SAT 98
[2024-09-11 21:39] VITALS: BP 118/75; PULSE 88; RESP 18; TEMP 36.8; O2SAT 92
[2024-09-12 02:55] VITALS: BP 110/83; PULSE 96; RESP 16; TEMP 36.9; O2SAT 95
[2024-09-12] MEDS: Levothyroxine 125 MCG Tablet PO (05:41)
[2024-09-12] MEDS: Menthol/Lanolin/Calamine/Znox 113 GM Tube 1 APPLIC TOPICAL ×3 (05:41→22:31)
[2024-09-12 07:23] LABS: Absolute Lymphocyte Count 0.94 X10^3/uL (0.83-4.51); Absolute Neutrophil Count 5.9 X10^3/uL (2.0-7.7); Basophil# 0.03 X10^3/uL; Basophil% 0.4 % (0-1); Eosinophil# 0.14 X10^3/uL; Eosinophils% 1.8 % (0-5); Hematocrit 38.6 % (37-47); Hemoglobin 12.9 g/dL (12.0-15.0); Lymphocyte # 0.94 X10^3/ul (0.83-4.51); Lymphocyte % 12.4 % (19-41); Mean Corp Hgb Conc 33.4 g/dL (32-36); Mean Corpuscular Hgb 30.7 pg (27.0-32.0); Mean Corpuscular Volume 91.9 fL (81-99); Mean Platelet Vol. 10.1 fl (6.2-12.0); Monocyte# 0.62 X10^3/uL; Monocyte% 8.1 % (0-10); NRBC Flagged by Analyzer 0 % (0-5); Neutrophil # 5.85 X10^3/uL (2.7-7.7); Neutrophil % 76.9 % (47-70); Platelet Count 284 K/mm3 (150-450); RBC Distribution Width CV 11.8 % (11.6-14.6); RBC Distribution Width SD 39.5 fl (35.1-43.9); White Blood Count 7.6 K/mm3 (4.4-11.0)
[2024-09-12 07:57] LABS: Anion Gap 6 (5-15); BUN 15 mg/dL (7-18); BUN/Creat Ratio 27.4 RATIO (10-20); Calcium,Total 9.4 mg/dL (8.5-10.1); Chloride 108 mmol/L (98-107); Creatinine, Serum 0.55 mg/dL (0.55-1.02); EST Glomerular Filtration Rate 117 mL/min (>60); Est Glom Filt Rate - Afr Amer 142 mL/min (>60); Estimated Creatinine Clearance 59.71 ml/min; Glucose 110 mg/dL (74-106); Potassium 3.6 mmol/L (3.5-5.1); Sodium Level 140 mmol/L (136-145)
[2024-09-12 08:50] VITALS: BP 108/80; PULSE 68; RESP 18; TEMP 36.6; O2SAT 97
[2024-09-12] MEDS: Senna/Docusate Sodium 1 Tablet 2 TABLET PO ×2 (09:35→22:31)
[2024-09-12] MEDS: Enoxaparin 40 MG/0.4 ML Syringe SC (09:35)
[2024-09-12] MEDS: levETIRAcetam 1,000 MG Tablet 1000 MG PO ×2 (09:35→22:31)
[2024-09-12] MEDS: Ceftriaxone 1 GM/50 ML BAG IV (09:36)
[2024-09-12 14:07] VITALS: BP 108/96; PULSE 74; RESP 18; TEMP 36.9; O2SAT 98
[2024-09-12 22:31] VITALS: BP 101/67; PULSE 66; RESP 16; TEMP 37.6; O2SAT 94
[2024-09-12] MEDS: Acetaminophen 325 MG Tablet 650 MG PO (22:56)
[2024-09-13 03:23] VITALS: BP 91/58; PULSE 61; RESP 16; TEMP 37.1; O2SAT 95
[2024-09-13] MEDS: Levothyroxine 125 MCG Tablet PO (05:32)
[2024-09-13] MEDS: Menthol/Lanolin/Calamine/Znox 113 GM Tube 1 APPLIC TOPICAL ×3 (05:32→22:18)
[2024-09-13 05:38] VITALS: BP 111/72; PULSE 63; RESP 16; TEMP 36.6; O2SAT 94
[2024-09-13] MEDS: tiZANidine HCl 2 MG Tablet PO (06:01)
[2024-09-13 06:34] LABS: Absolute Neutrophil Count 4.8 X10^3/uL (2.0-7.7); Basophil# 0.03 X10^3/uL; Basophil% 0.4 % (0-1); Eosinophil# 0.25 X10^3/uL; Eosinophils% 3.7 % (0-5); Hematocrit 35.9 % (37-47); Hemoglobin 12.4 g/dL (12.0-15.0); Lymphocyte % 16.2 % (19-41); Mean Corp Hgb Conc 34.5 g/dL (32-36); Mean Corpuscular Hgb 31.2 pg (27.0-32.0); Mean Corpuscular Volume 90.4 fL (81-99); Mean Platelet Vol. 9.7 fl (6.2-12.0); Monocyte# 0.58 X10^3/uL; Monocyte% 8.5 % (0-10); NRBC Flagged by Analyzer 0 % (0-5); Neutrophil # 4.82 X10^3/uL (2.7-7.7); Neutrophil % 70.8 % (47-70); Platelet Count 279 K/mm3 (150-450); RBC Distribution Width CV 11.9 % (11.6-14.6); RBC Distribution Width SD 39.1 fl (35.1-43.9); Red Blood Count 3.97 M/mm3 (4.2-5.4); White Blood Count 6.8 K/mm3 (4.4-11.0)
[2024-09-13 06:58] LABS: Anion Gap 4 (5-15); BUN 18 mg/dL (7-18); Calcium,Total 9.2 mg/dL (8.5-10.1); Chloride 108 mmol/L (98-107); Creatinine, Serum 0.67 mg/dL (0.55-1.02); EST Glomerular Filtration Rate 93 mL/min (>60); Est Glom Filt Rate - Afr Amer 113 mL/min (>60); Estimated Creatinine Clearance 59.71 ml/min; Glucose 119 mg/dL (74-106); Potassium 3.6 mmol/L (3.5-5.1); Sodium Level 138 mmol/L (136-145)
[2024-09-13 07:46] VITALS: BP 86/55; PULSE 67; RESP 14; TEMP 37; O2SAT 95
[2024-09-13] MEDS: Senna/Docusate Sodium 1 Tablet 2 TABLET PO ×2 (09:25→22:17)
[2024-09-13] MEDS: levETIRAcetam 1,000 MG Tablet 1000 MG PO ×2 (09:25→22:17)
[2024-09-13] MEDS: Enoxaparin 40 MG/0.4 ML Syringe SC (09:26)
[2024-09-13] MEDS: Ceftriaxone 1 GM/50 ML BAG IV (09:30)
[2024-09-13 13:40] VITALS: BP 94/60; PULSE 66; RESP 14; TEMP 36.3; O2SAT 100
[2024-09-13] MEDS: Acetaminophen 325 MG Tablet 650 MG PO (22:17)
[2024-09-13 22:25] VITALS: BP 115/74; PULSE 61; RESP 16; TEMP 36.1; O2SAT 95
[2024-09-14 03:01] VITALS: BP 95/59; PULSE 52; RESP 16; TEMP 36.1; O2SAT 95
[2024-09-14] MEDS: Acetaminophen 325 MG Tablet 650 MG PO ×2 (04:33→21:05)
[2024-09-14] MEDS: Levothyroxine 125 MCG Tablet PO (04:33)
[2024-09-14 05:38] LABS: Absolute Lymphocyte Count 1.25 X10^3/uL (0.83-4.51); Absolute Neutrophil Count 3.6 X10^3/uL (2.0-7.7); Basophil# 0.05 X10^3/uL; Basophil% 0.9 % (0-1); Eosinophils% 5.3 % (0-5); Hematocrit 34.3 % (37-47); Hemoglobin 11.5 g/dL (12.0-15.0); Lymphocyte # 1.25 X10^3/ul (0.83-4.51); Lymphocyte % 21.9 % (19-41); Mean Corp Hgb Conc 33.5 g/dL (32-36); Mean Corpuscular Hgb 30.7 pg (27.0-32.0); Mean Corpuscular Volume 91.7 fL (81-99); Mean Platelet Vol. 10.1 fl (6.2-12.0); Monocyte# 0.51 X10^3/uL; Monocyte% 8.9 % (0-10); NRBC Flagged by Analyzer 0 % (0-5); Neutrophil # 3.57 X10^3/uL (2.7-7.7); Neutrophil % 62.6 % (47-70); Platelet Count 286 K/mm3 (150-450); RBC Distribution Width CV 11.8 % (11.6-14.6); RBC Distribution Width SD 39.6 fl (35.1-43.9); Red Blood Count 3.74 M/mm3 (4.2-5.4); White Blood Count 5.7 K/mm3 (4.4-11.0)
[2024-09-14 06:01] LABS: Anion Gap 4 (5-15); BUN 17 mg/dL (7-18); BUN/Creat Ratio 28.9 RATIO (10-20); Calcium,Total 8.9 mg/dL (8.5-10.1); Chloride 106 mmol/L (98-107); Creatinine, Serum 0.59 mg/dL (0.55-1.02); EST Glomerular Filtration Rate 107 mL/min (>60); Est Glom Filt Rate - Afr Amer 130 mL/min (>60); Estimated Creatinine Clearance 59.71 ml/min; Glucose 95 mg/dL (74-106); Potassium 3.6 mmol/L (3.5-5.1); Sodium Level 139 mmol/L (136-145)
[2024-09-14 07:43] VITALS: BP 96/59; PULSE 52; RESP 16; TEMP 36.7; O2SAT 95
[2024-09-14 07:46] VITALS: PULSE 52; O2SAT 95
[2024-09-14] MEDS: Menthol/Lanolin/Calamine/Znox 113 GM Tube 1 APPLIC TOPICAL ×2 (09:25→21:01)
[2024-09-14] MEDS: levETIRAcetam 1,000 MG Tablet 1000 MG PO ×2 (09:26→21:01)
[2024-09-14] MEDS: Senna/Docusate Sodium 1 Tablet 2 TABLET PO ×2 (09:27→21:00)
[2024-09-14] MEDS: Enoxaparin 40 MG/0.4 ML Syringe SC (09:29)
[2024-09-14] MEDS: Ceftriaxone 1 GM/50 ML BAG IV (09:37)
[2024-09-14 13:38] VITALS: BP 97/62; PULSE 98; RESP 18; TEMP 37.3; O2SAT 93
[2024-09-14] MEDS: tiZANidine HCl 2 MG Tablet PO (21:05)
[2024-09-14 23:00] VITALS: PULSE 58; O2SAT 95
[2024-09-15] MEDS: Levothyroxine 125 MCG Tablet PO (06:17)
[2024-09-15 07:03] LABS: Absolute Lymphocyte Count 0.99 X10^3/uL (0.83-4.51); Absolute Neutrophil Count 3.1 X10^3/uL (2.0-7.7); Basophil# 0.04 X10^3/uL; Basophil% 0.9 % (0-1); Eosinophil# 0.17 X10^3/uL; Eosinophils% 3.6 % (0-5); Hemoglobin 11.9 g/dL (12.0-15.0); Lymphocyte # 0.99 X10^3/ul (0.83-4.51); Lymphocyte % 21.2 % (19-41); Mean Corp Hgb Conc 33.1 g/dL (32-36); Mean Corpuscular Hgb 30.3 pg (27.0-32.0); Mean Corpuscular Volume 91.6 fL (81-99); Mean Platelet Vol. 9.6 fl (6.2-12.0); Monocyte# 0.35 X10^3/uL; Monocyte% 7.5 % (0-10); NRBC Flagged by Analyzer 0 % (0-5); Neutrophil # 3.12 X10^3/uL (2.7-7.7); Neutrophil % 66.6 % (47-70); Platelet Count 331 K/mm3 (150-450); RBC Distribution Width CV 11.8 % (11.6-14.6); RBC Distribution Width SD 39.5 fl (35.1-43.9); Red Blood Count 3.93 M/mm3 (4.2-5.4); White Blood Count 4.7 K/mm3 (4.4-11.0)
[2024-09-15 07:20] LABS: Anion Gap 3 (5-15); BUN 16 mg/dL (7-18); BUN/Creat Ratio 27.6 RATIO (10-20); Calcium,Total 8.9 mg/dL (8.5-10.1); Chloride 106 mmol/L (98-107); Creatinine, Serum 0.58 mg/dL (0.55-1.02); EST Glomerular Filtration Rate 109 mL/min (>60); Est Glom Filt Rate - Afr Amer 132 mL/min (>60); Estimated Creatinine Clearance 59.71 ml/min; Glucose 104 mg/dL (74-106); Potassium 3.6 mmol/L (3.5-5.1); Sodium Level 137 mmol/L (136-145)
[2024-09-15 07:25] VITALS: BP 101/61; PULSE 60; RESP 18; TEMP 36.6; O2SAT 98
[2024-09-15] MEDS: Menthol/Lanolin/Calamine/Znox 113 GM Tube 1 APPLIC TOPICAL (10:24)
[2024-09-15] MEDS: levETIRAcetam 1,000 MG Tablet 1000 MG PO (10:25)
[2024-09-15] MEDS: Enoxaparin 40 MG/0.4 ML Syringe SC (10:25)
[2024-09-15] MEDS: Senna/Docusate Sodium 1 Tablet 2 TABLET PO (10:27)
[2024-09-15] MEDS: Ceftriaxone 1 GM/50 ML BAG IV (10:27)
== END 2024-09-15 13:20 | disposition skilled nursing facility (03) | DRG 690 ==
LOC: ED 13:21 → MS3 17:56
PROVIDERS: Student in an Organized Health Care Education/Training Program; Admitting Provider Internal Medicine; Emergency Provider Surgery; PCP Family Medicine
DX: N10 Acute pyelonephritis (principal); G91.2 (Idiopathic) normal pressure hydrocephalus; E87.1 Hypo-osmolality and hyponatremia; Z51.5 Encounter for palliative care; Z66 Do not resuscitate; G40.909 Epilepsy, unspecified, not intractable, without status epilepticus; F03.90 Unspecified dementia, unspecified severity, without behavioral disturbance, psychotic disturbance, mood disturbance, and anxiety; E03.9 Hypothyroidism, unspecified; E86.9 Volume depletion, unspecified; N20.0 Calculus of kidney; B96.20 Unspecified Escherichia coli [E. coli] as the cause of diseases classified elsewhere; B96.4 Proteus (mirabilis) (morganii) as the cause of diseases classified elsewhere
CPT/HCPCS: 36415; 70450; 71045; 71260; 72125; 72170; 72192; 73562; 74177; 80048; 80053; 81001; 83735; 84443; 85025; 87040; 87077; 87086; 87088; 87186; 90715; 93005; 97110; 97162; 97166; 97530; 97535; 99283; 99285; J7040; Q9967; A4216; J2405; J7799

== ENCOUNTER 2025-06-03 11:07 | Emergency (ER) | payer MEDICARE, SELFPAY ==
[2025-06-03 11:08] VITALS: BP 132/82; PULSE 40; RESP 12; TEMP 36.3; O2SAT 100; BMI 27.3
--- NOTE | 2025-06-03 11:22 | EKG12_ITS ---
Test Reason : SYNCOPE Blood Pressure : */* mmHG Vent. Rate : 45 BPM Atrial Rate : 45 BPM P-R Int : 214 ms QRS Dur : 78 ms QT Int : 512 ms P-R-T Axes : 62 7 56 degrees QTcB Int : 442 ms Sinus bradycardia with 1st degree A-V block Nonspecific ST abnormality Abnormal ECG Confirmed by GELY VELAZQUEZ, LEEANNE ([id number]), medical editor JOSE JUAN FRANCIS ([id number]) on 06/05/2025 11:32:03 AM Referred By: Confirmed By: LEEANNE HONG MD
--- NOTE | 2025-06-03 11:27 | EX.ED.DYSGE1 ---
HPI <PAUL Schreiber - Last Filed: 06/03/25 14:17> History of Present Illness Chief Complaint: Syncope Narrative Narrative: 69-year-old female with past medical history of hypothyroidism, seizures, nonverbal dementia, Parkinson-like symptoms is brought in by her for evaluation after a possible syncopal episode. Her is her caregiver and performs all her ADLs. He was assisting her up from the wheelchair to transfer when she suddenly closed her eyes and became weight and he thinks she passed out lasting about 3 minutes. He lowered her to the ground and she did not fall or hit her head. She opened her eyes afterward and seemed back to her normal baseline. There was no seizure activity. There was no vomiting or other signs of distress. She has had no recent illness and he denies fever, vomiting, or change in urinary or bowel movements. PFSH <PAUL Schreiber - Last Filed: 06/03/25 14:17> [facility] Medical History (Updated 06/03/25 @ 14:17 by PAUL Schreiber) Hypothyroidism Seizure disorder Staghorn calculus FH: total knee replacement Dementia Seizure Hypothyroid Home Medications ?Medication ?Instructions ?Recorded ?Last Taken ?Type levetiracetam 500 mg tablet 1,000 mg PO BID 09/09/24 06/03/25 History cephalexin 500 mg capsule 500 mg PO Q12 #14 CAPSULES 06/03/25 Unknown Rx levothyroxine 125 mcg tablet 125 mcg PO DAILY 06/03/25 06/03/25 History Allergy/AdvReac Type Severity Reaction Status Date / Time No Known Allergies Allergy Verified 08/03/24 10:07 Family History Father Cancer Social History Smoking Status: Never smoker ROS <PAUL Schreiber - Last Filed: 06/03/25 14:17> ROS ED ROS Narrative Limited due to her nonverbal dementia but no recent fever, cough, vomiting, diarrhea, melena, hematochezia, or change in urine appearance according to her . EXAM <PAUL Schreiber - Last Filed: 06/03/25 14:17> Physical Exam Narrative Exam Narrative: CONST: Patient sitting in bed with her eyes closed in no acute distress. EYES: When I open her eyelids they appear normal, PERRL. ENT: Normal inspection, moist mucous membranes. NECK: Normal inspection. RESP: No respiratory distress, CTAB. CVS: Regular rate and rhythm, no murmur, no gallop. ABD: Soft and nontender, no guarding or rebound, nondistended. SKIN: Color normal, no rash, warm, dry, intact. EXTREMITIES: Cogwheel rigidity of both upper extremities. NEURO: Laying bed with eyes closed, does not respond to voice. Her states this is typical. PSYCH: Normal affect. Const Vital Signs: 06/03/25 11:08 06/03/25 11:20 06/03/25 11:42 Temperature 97.3 F L Temperature Source Oral Pulse Rate 40 L 38 L Respiratory Rate 12 Respiratory Pattern Normal Blood Pressure 132/82 H Blood Pressure Mean 98 Pulse Ox 100 Oxygen Delivery Method Room Air 06/03/25 12:45 06/03/25 14:27 Temperature 97.3 F L Temperature Source Pulse Rate 51 L 51 L Respiratory Rate 12 12 Respiratory Pattern Blood Pressure 121/91 H 121/91 H Blood Pressure Mean 101 101 Pulse Ox 100 100 Oxygen Delivery Method Room Air <Dr. Debbi Anderson DO - Last Filed: 06/03/25 15:30> Physical Exam Const Vital Signs: 06/03/25 11:08 06/03/25 11:20 06/03/25 11:42 Temperature 97.3 F L Temperature Source Oral Pulse Rate 40 L 38 L Respiratory Rate 12 Respiratory Pattern Normal Blood Pressure 132/82 H Blood Pressure Mean 98 Pulse Ox 100 Oxygen Delivery Method Room Air 06/03/25 12:45 06/03/25 14:27 Temperature 97.3 F L Temperature Source Pulse Rate 51 L 51 L Respiratory Rate 12 12 Respiratory Pattern Blood Pressure 121/91 H 121/91 H Blood Pressure Mean 101 101 Pulse Ox 100 100 Oxygen Delivery Method Room Air MDM <PAUL Schreiber - Last Filed: 06/03/25 14:17> [facility] MDM Narrative Medical decision making narrative: History gathered from: Patient's as she is nonverbal Differential includes but not limited to infectious etiology like pneumonia or UTI, cardiac etiology, electrolyte derangement, dehydration 69-year-old female with history of seizures, bands dementia, nonverbal brought in by her because she had a syncopal episode while he was transferring her this morning. There was no fall or injury. After few minutes she returned to her normal state. She is resting in bed with her eyes closed in no distress. She does not respond to voice but does move with sternal rub. Vitals show sinus bradycardia ranging from 38-48 during my exam. Blood pressure stable at 132/82, 100% room air. states her normal heart rate is around 60 bpm. She has moist mucous membranes. Normal cardiopulmonary exam. Abdomen soft, nondistended. She has chronic cogwheel rigidity in both extremities but has no sign of focal neurological deficits. CBC and BMP are unremarkable. EKG is nonischemic and CXR negative. After IV fluids her heart rate has improved to the 50s. Straight cath urine is positive for UTI. A prior urine culture showed E. coli and Proteus mirabilis sensitive to multiple drugs including cephalosporins so she was treated with Rocephin. Her usually holds her assists her to walk short distances at home. She had difficulty standing and walking here so I advised her to have her admitted but he really wants to take her home and care for her. She has a car lift, wheelchair, ramps in the home, and indoor chairlift also in he is comfortable using these. I recommended he monitor her vital signs and discussed return precautions. I prescribed Keflex and she was discharged in stable condition. Lab Data Attestation: I reviewed the patient's lab results. Labs: Laboratory Results - last 24 hr 06/03/25 06/03/25 11:32 12:16 WBC 5.3 RBC 4.44 Hgb 13.6 Hct 40.6 MCV 91.4 MCH 30.6 MCHC 33.5 RDW Std Deviation 39.8 RDW Coeff of Karen 11.9 Plt Count 217 MPV 10.1 Immature Gran % (Auto) 0.200 Neut % (Auto) 76.2 H Lymph % (Auto) 14.1 L [place] % (Auto) 6.8 Eos % (Auto) 1.7 Baso % (Auto) 1.0 Absolute Neuts (auto) 4.0 Absolute Lymphs (auto) 0.74 L Nucleated RBC % 0 Sodium 143 Potassium 4.0 Chloride 112 H Carbon Dioxide 21.8 Anion Gap 9 BUN 16 Creatinine 0.57 L Estim Creat Clear Calc 59.02 Est GFR (MDRD) Non-Af 98 BUN/Creatinine Ratio 27.8 H Glucose 89 Calcium 7.8 TSH 1.590 Urine Color Yellow Urine Clarity Cloudy Urine pH 7.0 Ur Specific [place] 1.015 Urine Protein 30 H Urine Glucose (UA) Normal Urine Ketones Negative Urine Occult Blood 50 H Urine Nitrite Positive H Urine Bilirubin Negative Urine Urobilinogen Normal Ur Leukocyte Esterase 500 H Urine RBC 5-10 SEEN Urine WBC >100 SEEN Ur Squamous Epith Cells 0-5 SEEN Urine Bacteria 3+ Urine Mucus 0 SEEN Radiography Diagnostic Testing: Clinical Impression(s) from Imaging Studies Chest X-Ray 06/03/25 11:45 IMPRESSION: No Acute Findings. Reading Location: [facility] ED attending interpretation of 1 view chest x-ray shows normal heart size, no acute infiltrate. EKG Initial EKG: Attestation: I personally reviewed and interpreted this EKG as follows: Interpretation: No Acute Injury Pattern and Sinus Bradycardia Comments: Sinus bradycardia 45 bpm with first-degree AV block Nonspecific ST changes, no STEMI Prior EKG tracings: available for review Prior: Unchanged <Dr. Debbi Anderson, DO - Last Filed: 06/03/25 15:30> MDM MDM Narrative Medical decision making narrative: History gathered from: Patient's as she is nonverbal Differential includes but not limited to infectious etiology like pneumonia or UTI, cardiac etiology, electrolyte derangement, dehydration 69-year-old female with history of seizures, bands dementia, nonverbal brought in by her because she had a syncopal episode while he was transferring her this morning. There was no fall or injury. After few minutes she returned to her normal state. She is resting in bed with her eyes closed in no distress. She does not respond to voice but does move with sternal rub. Vitals show sinus bradycardia ranging from 38-48 during my exam. Blood pressure stable at 132/82, 100% room air. states her normal heart rate is around 60 bpm. She has moist mucous membranes. Normal cardiopulmonary exam. Abdomen soft, nondistended. She has chronic cogwheel rigidity in both extremities but has no sign of focal neurological deficits. CBC and BMP are unremarkable. EKG is nonischemic and CXR negative. After IV fluids her heart rate has improved to the 50s. Straight cath urine is positive for UTI. A prior urine culture showed E. coli and Proteus mirabilis sensitive to multiple drugs including cephalosporins so she was treated with Rocephin. Her usually holds her assists her to walk short distances at home. She had difficulty standing and walking here so I advised her to have her admitted but he really wants to take her home and care for her. She has a car lift, wheelchair, ramps in the home, and indoor chairlift also in he is comfortable using these. I recommended he monitor her vital signs and discussed return precautions. I prescribed Keflex and she was discharged in stable condition. I have personally performed a face to face assessment of the patient and have reviewed the CHRISTINA Note. I performed a substantive portion of the visit including all aspects of the following. My davila findings include: History is Patient is a 6-year-old female with history of dementia, staghorn calculi (previously evaluated by [facility] who felt that they were in the kidneys and nothing to be intervened on at that time (which was August 2024)), hypothyroidism and possible Parkinson's presenting for syncopal episode. Patient was standing up for her to transfer from her wheelchair to the sitting chair when she passed out. He was able to catch her with no fall or injury. She returned to her normal states after a few minutes. Has not brought her in for further evaluation. is a primary caregiver. Denies any recent appetite changes, fevers or urinary symptoms. Cardiac and metabolic workup for looking for the cause of her syncope is performed. Patient is bradycardia in the ER with first AV block. There does not appear to be a high-grade block on telemetry. CBC is normal specifically she does not have any anemia and does not have a leukocytosis or left shift. BMP normal and there is normal kidney function. Bicarb is normal at 21.8. TSH is normal so suspicion for thyroid storm or myxedema coma causing her symptoms. Urinalysis is highly consistent with urinary tract infection with positive nitrates, greater than 100 white blood cells and 3+ bacteria with only 0-5 squamous epithelial cells. Urine culture sent. Patient is given a dose of IV Rocephin in the emergency room as well as IV fluids. With IV fluids her bradycardia improves. Patient per is at her cognitive baseline. She responds to her name and tactile stimuli. She looks around the room. We did try to ambulate her and she was quite weak however states that he would prefer to take her home and treat her with oral antibiotics at home. We did encourage admission for concern of possible progression of infectious symptoms, her bradycardia and syncopal episodes but he felt comfortable that he could take care of her adequately at home. He states he has multiple assistive devices to help. Will be started on Keflex with culture of the urine pending. Counseled very close return precautions including signs of dehydration, decreased urine output, fever, blood pressure below 100 systolic and heart rate below 40 or further episodes of syncope. He verbalized understanding of this. Other additions or changes: [None] Lab Data Labs: Laboratory Results - last 24 hr 06/03/25 06/03/25 11:32 12:16 WBC 5.3 RBC 4.44 Hgb 13.6 Hct 40.6 MCV 91.4 MCH 30.6 MCHC 33.5 RDW Std Deviation 39.8 RDW Coeff of Karen 11.9 Plt Count 217 MPV 10.1 Immature Gran % (Auto) 0.200 Neut % (Auto) 76.2 H Lymph % (Auto) 14.1 L [place] % (Auto) 6.8 Eos % (Auto) 1.7 Baso % (Auto) 1.0 Absolute Neuts (auto) 4.0 Absolute Lymphs (auto) 0.74 L Nucleated RBC % 0 Sodium 143 Potassium 4.0 Chloride 112 H Carbon Dioxide 21.8 Anion Gap 9 BUN 16 Creatinine 0.57 L Estim Creat Clear Calc 59.02 Est GFR (MDRD) Non-Af 98 BUN/Creatinine Ratio 27.8 H Glucose 89 Calcium 7.8 TSH 1.590 Urine Color Yellow Urine Clarity Cloudy Urine pH 7.0 Ur Specific [place] 1.015 Urine Protein 30 H Urine Glucose (UA) Normal Urine Ketones Negative Urine Occult Blood 50 H Urine Nitrite Positive H Urine Bilirubin Negative Urine Urobilinogen Normal Ur Leukocyte Esterase 500 H Urine RBC 5-10 SEEN Urine WBC >100 SEEN Ur Squamous Epith Cells 0-5 SEEN Urine Bacteria 3+ Urine Mucus 0 SEEN Radiography Diagnostic Testing: Clinical Impression(s) from Imaging Studies Chest X-Ray 06/03/25 11:45 IMPRESSION: No Acute Findings. Reading Location: [facility] Discharge Plan Triage Chief Complaint: Syncope ED Midlevel Provider: Madyson Elizabeth ED Provider: Debbi Anderson Dx/Rx/DC Orders Clinical Impression: Syncope, Acute UTI, Dementia, Generalized weakness Instructions: UTIs Prescriptions: New cephalexin 500 mg capsule 500 mg PO Q12 Qty: 14 0RF No Action levetiracetam 500 mg tablet 1,000 mg PO BID levothyroxine 125 mcg tablet 125 mcg PO DAILY Primary Care Provider: Rex Bryan Referrals: Rex Bryan DO [Primary Care Provider] - Activity Restrictions/Additional Instructions: Make sure she drinks plenty of water and takes the antibiotics twice a day. If she gets any worse, or develops a fever, or her blood pressure drops below 100 for the top number her heart rate is in the 30s to low 40s consistently please bring her back to the emergency room. Print Language: Lithuanian Disposition Disposition: Home, Self Care Discharge Date/Time: 06/03/25 14:28
[2025-06-03 11:42] VITALS: PULSE 38
--- NOTE | 2025-06-03 11:45 | RAD_ITS ---
PROCEDURE: CHEST 1 VIEW (PORTABLE) 06/03/2025 REASON FOR EXAM: WEAKNESS TECHNIQUE: Frontal view of the chest. COMPARISON: CT chest abdomen pelvis 09/09/2024. chest radiograph 09/06/2024. FINDINGS: Hardware: None. Heart: The heart size is normal. Lungs: Bibasilar atelectasis, [id number]. No focal consolidation, pleural effusion or pneumothorax. Bones: Degenerative changes are identified within the thoracic spine. RAD/Chest 1 View (Portable) IMPRESSION: No Acute Findings. Reading Location: [id number]
[2025-06-03 11:49] LABS: Hematocrit 40.6 % (37-47); Hemoglobin 13.6 g/dL (12.0-15.0); Immature Granulocytes Count 0.010 X10^3/uL (0.0-0.0); Mean Corp Hgb Conc 33.5 g/dL (32-36); Mean Corpuscular Volume 91.4 fL (81-99); Mean Platelet Vol. 10.1 fl (6.2-12.0); NRBC Flagged by Analyzer 0 % (0-5); Platelet Count 217 K/mm3 (150-450); RBC Distribution Width CV 11.9 % (11.6-14.6); RBC Distribution Width SD 39.8 fl (35.1-43.9); Red Blood Count 4.44 M/mm3 (4.2-5.4); White Blood Count 5.3 K/mm3 (4.4-11.0)
--- OUTSIDE RECORDS SUMMARY | 2025-06-03 11:57 | XMS RPT_ITS | CCD ---
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 [address] WBC Normal 4.4-11.0 [facility] Comment on above: Result Comment: Canc elled via OM: Order cancelled - Patient discharged Performed By: #### L 100.0100, L500.2500 #### [facility] [address] [place], [address] Basic Metabolic Profile (BMP )on 09-16-2024 BUN Normal 7-18 [facility] Comment on above: Result Comment: Canc elled via OM: Order cancelled - Patient discharged Performed By: #### L 100.0100, L500.2500 #### [facility] [address] [place], [address] BUN/CRE Normal 10-20 [facility] Comment on above: Result Comment: Canc elled via OM: Order cancelled - Patient discharged Performed By: #### L 100.0100, L500.2500 #### [facility] [address] [place], [address] CA,Total Normal 8.5-10.1 [facility] Comment on above: Result Comment: Canc elled via OM: Order cancelled - Patient discharged Performed By: #### L 100.0100, L500.2500 #### [facility] [address] [place], [address] CL Normal 98-107 [facility] Comment on above: Result Comment: Canc elled via OM: Order cancelled - Patient discharged Performed By: #### L 100.0100, L500.2500 #### [facility] [address] [place], [address] CO2 Normal 21.0-32.0 [facility] Comment on above: Result Comment: Canc elled via OM: Order cancelled - Patient discharged Performed By: #### L 100.0100, L500.2500 #### [facility] [address] [place], [address] CREAT,SERUM Normal 0.55-1.02 [facility] Comment on above: Result Comment: Canc elled via OM: Order cancelled - Patient discharged Performed By: #### L 100.0100, L500.2500 #### [facility] [address] [place], [address] EST GFR Normal >60 [facility] Comment on above: Result Comment: Canc elled via OM: Order cancelled - Patient discharged Performed By: #### L 100.0100, L500.2500 #### [facility] [address] [place], [address] EST GFR - AA Normal >60 [facility] Comment on above: Result Comment: Canc elled via OM: Order cancelled - Patient discharged Performed By: #### L 100.0100, L500.2500 #### [facility] [address] [place], [address] GAP Normal 5-15 [facility] Comment on above: Result Comment: Canc elled via OM: Order cancelled - Patient discharged Performed By: #### L 100.0100, L500.2500 #### [facility] [address] [place], [address] GLU Normal 74-106 [facility] Comment on above: Result Comment: Canc elled via OM: Order cancelled - Patient discharged Performed By: #### L 100.0100, L500.2500 #### [place] [facility] [address] [place], [address] Potassium Normal 3.5-5.1 [facility] Comment on above: Result Comment: Canc elled via OM: Order cancelled - Patient discharged Performed By: #### L 100.0100, L500.2500 #### [facility] [address] [place], [address] Basic Metabolic Profile (BMP) Normal 136-145 [facility] Comment on above: Result Comment: Canc elled via OM: Order cancelled - Patient discharged Performed By: #### L 100.0100, L500.2500 #### [facility] [address] [place], [address] CBC W/Diff, Automatedon 10-2 Absolute Neut Normal 2.0-7.7 [facility] Comment on above: Result Comment: Canc elled via OM: Order cancelled - Patient discharged Performed By: #### L 100.0100, L500.2500 #### [facility] [address] [place], [address] HCT Normal 37-47 [facility] Comment on above: Result Comment: Canc elled via OM: Order cancelled - Patient discharged Performed By: #### L 100.0100, L500.2500 #### [facility] [address] [place], [address] HGB Normal 12.0-15.0 [facility] Comment on above: Result Comment: Canc elled via OM: Order cancelled - Patient discharged Performed By: #### L 100.0100, L500.2500 #### [facility] [address] [place], [address] MCH Normal 27.0-32.0 [facility] Comment on above: Result Comment: Canc elled via OM: Order cancelled - Patient discharged Performed By: #### L 100.0100, L500.2500 #### [facility] [address] [place], [address] MCHC Normal 32-36 [facility] Comment on above: Result Comment: Canc elled via OM: Order cancelled - Patient discharged Performed By: #### L 100.0100, L500.2500 #### [facility] [address] [place], [address] MCV Normal 81-99 [facility] Comment on above: Result Comment: Canc elled via OM: Order cancelled - Patient discharged Performed By: #### L 100.0100, L500.2500 #### [facility] [address] [place], [address] NEUT% Normal 47-70 [facility] Comment on above: Result Comment: Canc elled via OM: Order cancelled - Patient discharged Performed By: #### L 100.0100, L500.2500 #### [facility] [address] [place], [address] PLT Normal 150-450 [facility] Comment on above: Result Comment: Canc elled via OM: Order cancelled - Patient discharged Performed By: #### L 100.0100, L500.2500 #### [facility] [address] [place], [address] RBC Normal 4.2-5.4 [facility] Comment on above: Result Comment: Canc elled via OM: Order cancelled - Patient discharged Performed By: #### L 100.0100, L500.2500 #### [facility] [address] [place], [address] RDW CV Normal 11.6-14.6 [facility] Comment on above: Result Comment: Canc elled via OM: Order cancelled - Patient discharged Performed By: #### L 100.0100, L500.2500 #### [facility] [address] [place], [address] RDW SD Normal 35.1-43.9 [facility] Comment on above: Result Comment: Canc elled via OM: Order cancelled - Patient discharged Performed By: #### L 100.0100, L500.2500 #### [facility] [address] [place], [address] WBC Normal 4.4-11.0 [facility] Comment on above: Result Comment: Canc elled via OM: Order cancelled - Patient discharged Performed By: #### L 100.0100, L500.2500 #### [facility] [address] [place], [address] Basic Metabolic Profile (BMP )on 09-15-2023 BUN/CRE 27.6 RATIO High - [facility] Comment on above: Performed By: #### L 500.2500, L100.0100 #### [facility] [address] [place], [address] CA,Total 8.9 mg/dL Normal 8.5-10.1 [facility] Comment on above: Performed By: #### L 500.2500, L100.0100 #### [facility] [address] [place], [address] Chloride [Moles/Vol] 106 mmol/L Normal 98-107 [facility] Comment on above: Performed By: #### L 500.2500, L100.0100 #### [facility] [address] [place], [address] CO2 [Moles/Vol] 28.0 mmol/L Normal 21.0-32.0 [facility] Comment on above: Performed By: #### L 500.2500, L100.0100 #### [facility] [address] [place], [address] Creatinine [Mass/Vol] 0.58 mg/dL Normal 0.55-1.02 [facility] Comment on above: Result Comment: The validity of the calculated GFR GFRAA in patients over 70 years has not been determined. Clinical correlation is essential. Performed By: #### L 500.2500, L100.0100 #### [facility] [address] [place], [address] ECRCL 59.71 ml/min Normal [facility] Comment on above: Performed By: #### L 500.2500, L100.0100 #### [facility] [address] [place], [address] EST GFR - AA 132 mL/min Normal >60 [facility] Comment on above: Result Comment: Afri can Citizen [place] GFR Calc Performed By: #### L 500.2500, L100.0100 #### [facility] [address] [place], [address] GAP 3 Low 5-15 [facility] Comment on above: Performed By: #### L 500.2500, L100.0100 #### [facility] [address] [place], [address] GFR/1.73 sq M.predicted among non-blacks MDRD (S/P/Bld) [Vol rate/Area] 109 mL/min/{1.73_m2} Normal >60 [facility] Comment on above: Result Comment: Non- GFR Calc Performed By: #### L 500.2500, L100.0100 #### [facility] [address] [place], [address] Glucose [Mass/Vol] 104 mg/dL Normal 74-106 [facility] Comment on above: Result Comment: Fast ing Glucose result from 100 to 125 mg/dL suggests IMPAIRED HOMEOSTASIS per A.D.A. criteria. Performed By: #### L 500.2500, L100.0100 #### [facility] [address] [place], [address] Potassium [Moles/Vol] 3.6 mmol/L Normal 3.5-5.1 [facility] Comment on above: Performed By: #### L 500.2500, L100.0100 #### [facility] [address] [place], [address] Sodium [Moles/Vol] 137 mmol/L Normal 136-145 [facility] Comment on above: Performed By: #### L 500.2500, L100.0100 #### [facility] [address] [place], [address] Urea nitrogen [Mass/Vol] 16 mg/dL Normal 7-18 [facility] Comment on above: Performed By: #### L 500.2500, L100.0100 #### [facility] [address] [place], [address] CBC W/Diff, Automatedon 10-2 Absolute Lymph 0.99 X10 3/uL Normal 0.83-4.51 [facility] Comment on above: Performed By: #### L 500.2500, L100.0100 #### [facility] [address] [place], [address] Absolute Neut 3.1 X10 3/uL Normal 2.0-7.7 [facility] Comment on above: Performed By: #### L 500.2500, L100.0100 #### [facility] [address] [place], [address] Basophils/100 WBC (Bld) 0.9 % Normal 0-1 [facility] Comment on above: Performed By: #### L 500.2500, L100.0100 #### [facility] [address] [place], [address] Eosinophils/100 WBC (Bld) 3.6 % Normal 0-5 [facility] Comment on above: Performed By: #### L 500.2500, L100.0100 #### [facility] [address] [place], [address] Erythrocyte distribution width (RBC) [Ratio] 11.8 % Normal 11.6-14.6 [facility] Comment on above: Performed By: #### L 500.2500, L100.0100 #### [facility] [address] [place], [address] Hematocrit (Bld) [Volume fraction] 36.0 % Low 37-47 [facility] Comment on above: Performed By: #### L 500.2500, L100.0100 #### [facility] [address] [place], [address] Hemoglobin (Bld) [Mass/Vol] 11.9 g/dL Low 12.0-15.0 [facility] Comment on above: Performed By: #### L 500.2500, L100.0100 #### [facility] [address] [place], [address] IG% 0.200 Normal 0.0-0.9 [facility] Comment on above: Result Comment: IG% - Immature Granulocytes (promyelocytes, myelocytes and metamyelocytes) > 1% indicates that a LEFT SHIFT is Present. Performed By: #### L 500.2500, L100.0100 #### [facility] [address] [place], [address] Lymphocytes/100 WBC (Bld) 21.2 % Normal 19-41 [facility] Comment on above: Performed By: #### L 500.2500, L100.0100 #### [facility] [address] [place], [address] MCH (RBC) [Entitic mass] 30.3 pg Normal 27.0-32.0 [facility] Comment on above: Performed By: #### L 500.2500, L100.0100 #### [facility] [address] [place], [address] MCHC (RBC) [Mass/Vol] 33.1 g/dL Normal 32-36 [facility] Comment on above: Performed By: #### L 500.2500, L100.0100 #### [facility] [address] [place], [address] MCV (RBC) [Entitic vol] 91.6 fL Normal 81-99 [facility] Comment on above: Performed By: #### L 500.2500, L100.0100 #### [facility] [address] [place], [address] Monocytes/100 WBC (Bld) 7.5 % Normal 0-10 [facility] Comment on above: Performed By: #### L 500.2500, L100.0100 #### [facility] [address] [place], [address] Neutrophils/100 WBC (Bld) 66.6 % Normal 47-70 [facility] Comment on above: Performed By: #### L 500.2500, L100.0100 #### [facility] [address] [place], [address] Nucleated RBC (Bld) [#/Vol] 0 10*3/uL Normal 0-5 [facility] Comment on above: Performed By: #### L 500.2500, L100.0100 #### [facility] [address] [place], [address] Platelet mean volume (Bld) [Entitic vol] 9.6 fL Normal 6.2-12.0 [facility] Comment on above: Performed By: #### L 500.2500, L100.0100 #### [facility] [address] [place], [address] Platelets (Bld) [#/Vol] 331 10*3/uL Normal 150-450 [facility] Comment on above: Performed By: #### L 500.2500, L100.0100 #### [facility] [address] [place], [address] RBC (Bld) [#/Vol] 3.93 10*6/uL Low 4.2-5.4 [facility] Comment on above: Performed By: #### L 500.2500, L100.0100 #### [facility] [address] [place], [address] RDW SD 39.5 fl Normal 35.1-43.9 [facility] Comment on above: Performed By: #### L 500.2500, L100.0100 #### [facility] [address] [place], [address] WBC (Bld) [#/Vol] 4.7 10*3/uL Normal 4.4-11.0 [facility] Comment on above: Performed By: #### L 500.2500, L100.0100 #### [facility] [address] [place], [address] Culture, Blood (WB)on 2023 CUB Blood cultures x2 from two different sites No growth in 5 days. Normal [facility] Comment on above: Performed By: #### L 100.0100, L500.2500 #### [facility] [address] [place], [address] Basic Metabolic Profile (BMP )on 09-14-2024 BUN/CRE 28.9 RATIO High 09-11 [facility] Comment on above: Performed By: #### L 100.0100, L500.2500 #### [facility] [address] [place], [address] CA,Total 8.9 mg/dL Normal 8.5-10.1 [facility] Comment on above: Performed By: #### L 100.0100, L500.2500 #### [facility] [address] [place], [address] Chloride [Moles/Vol] 106 mmol/L Normal 98-107 [facility] Comment on above: Performed By: #### L 100.0100, L500.2500 #### [facility] [address] [place], [address] CO2 [Moles/Vol] 28.0 mmol/L Normal 21.0-32.0 [facility] Comment on above: Performed By: #### L 100.0100, L500.2500 #### [facility] [address] [place], [address] Creatinine [Mass/Vol] 0.59 mg/dL Normal 0.55-1.02 [facility] Comment on above: Result Comment: The validity of the calculated GFR GFRAA in patients over 70 years has not been determined. Clinical correlation is essential. Performed By: #### L 100.0100, L500.2500 #### [facility] [address] [place], [address] ECRCL 59.71 ml/min Normal [facility] Comment on above: Performed By: #### L 100.0100, L500.2500 #### [facility] [address] [place], [address] EST GFR - AA 130 mL/min Normal >60 [facility] Comment on above: Result Comment: Afri can Citizen [place] GFR Calc Performed By: #### L 100.0100, L500.2500 #### [facility] [address] [place], [address] GAP 4 Low 5-15 [facility] Comment on above: Performed By: #### L 100.0100, L500.2500 #### [facility] [address] [place], [address] GFR/1.73 sq M.predicted among non-blacks MDRD (S/P/Bld) [Vol rate/Area] 107 mL/min/{1.73_m2} Normal >60 [facility] Comment on above: Result Comment: Non- GFR Calc Performed By: #### L 100.0100, L500.2500 #### [facility] [address] [place], [address] Glucose [Mass/Vol] 95 mg/dL Normal 74-106 [facility] Comment on above: Performed By: #### L 100.0100, L500.2500 #### [facility] [address] [place], [address] Potassium [Moles/Vol] 3.6 mmol/L Normal 3.5-5.1 [facility] Comment on above: Performed By: #### L 100.0100, L500.2500 #### [facility] [address] [place], [address] Sodium [Moles/Vol] 139 mmol/L Normal 136-145 [facility] Comment on above: Performed By: #### L 100.0100, L500.2500 #### [facility] [address] [place], [address] Urea nitrogen [Mass/Vol] 17 mg/dL Normal 7-18 [facility] Comment on above: Performed By: #### L 100.0100, L500.2500 #### [facility] [address] [place], [address] CBC W/Diff, Automatedon 10-2 Absolute Lymph 1.25 X10 3/uL Normal 0.83-4.51 [facility] Comment on above: Performed By: #### L 100.0100, L500.2500 #### [facility] [address] [place], [address] Absolute Neut 3.6 X10 3/uL Normal 2.0-7.7 [facility] Comment on above: Performed By: #### L 100.0100, L500.2500 #### [facility] [address] [place], [address] Basophils/100 WBC (Bld) 0.9 % Normal 0-1 [facility] Comment on above: Performed By: #### L 100.0100, L500.2500 #### [facility] [address] [place], [address] Eosinophils/100 WBC (Bld) 5.3 % High 0-5 [facility] Comment on above: Performed By: #### L 100.0100, L500.2500 #### [facility] [address] [place], [address] Erythrocyte distribution width (RBC) [Ratio] 11.8 % Normal 11.6-14.6 [facility] Comment on above: Performed By: #### L 100.0100, L500.2500 #### [facility] [address] [place], [address] Hematocrit (Bld) [Volume fraction] 34.3 % Low 37-47 [facility] Comment on above: Performed By: #### L 100.0100, L500.2500 #### [facility] [address] [place], [address] Hemoglobin (Bld) [Mass/Vol] 11.5 g/dL Low 12.0-15.0 [facility] Comment on above: Performed By: #### L 100.0100, L500.2500 #### [facility] [address] [place], [address] IG% 0.400 Normal 0.0-0.9 [facility] Comment on above: Result Comment: IG% - Immature Granulocytes (promyelocytes, myelocytes and metamyelocytes) > 1% indicates that a LEFT SHIFT is Present. Performed By: #### L 100.0100, L500.2500 #### [facility] [address] [place], [address] Lymphocytes/100 WBC (Bld) 21.9 % Normal 19-41 [facility] Comment on above: Performed By: #### L 100.0100, L500.2500 #### [facility] [address] [place], [address] MCH (RBC) [Entitic mass] 30.7 pg Normal 27.0-32.0 [facility] Comment on above: Performed By: #### L 100.0100, L500.2500 #### [facility] [address] [place], [address] MCHC (RBC) [Mass/Vol] 33.5 g/dL Normal 32-36 [facility] Comment on above: Performed By: #### L 100.0100, L500.2500 #### [facility] [address] [place], [address] MCV (RBC) [Entitic vol] 91.7 fL Normal 81-99 [facility] Comment on above: Performed By: #### L 100.0100, L500.2500 #### [facility] [address] [place], [address] Monocytes/100 WBC (Bld) 8.9 % Normal 0-10 [facility] Comment on above: Performed By: #### L 100.0100, L500.2500 #### [facility] [address] [place], [address] Neutrophils/100 WBC (Bld) 62.6 % Normal 47-70 [facility] Comment on above: Performed By: #### L 100.0100, L500.2500 #### [facility] [address] [place], [address] Nucleated RBC (Bld) [#/Vol] 0 10*3/uL Normal 0-5 [facility] Comment on above: Performed By: #### L 100.0100, L500.2500 #### [facility] [address] [place], [address] Platelet mean volume (Bld) [Entitic vol] 10.1 fL Normal 6.2-12.0 [facility] Comment on above: Performed By: #### L 100.0100, L500.2500 #### [facility] [address] [place], [address] Platelets (Bld) [#/Vol] 286 10*3/uL Normal 150-450 [facility] Comment on above: Performed By: #### L 100.0100, L500.2500 #### [facility] [address] [place], [address] RBC (Bld) [#/Vol] 3.74 10*6/uL Low 4.2-5.4 [facility] Comment on above: Performed By: #### L 100.0100, L500.2500 #### [facility] [address] [place], [address] RDW SD 39.6 fl Normal 35.1-43.9 [facility] Comment on above: Performed By: #### L 100.0100, L500.2500 #### [facility] [address] [place], [address] WBC (Bld) [#/Vol] 5.7 10*3/uL Normal 4.4-11.0 [facility] Comment on above: Performed By: #### L 100.0100, L500.2500 #### [facility] [address] [place], [address] Basic Metabolic Profile (BMP )on 09-13-2024 BUN/CRE 27.0 RATIO High - [facility] Comment on above: Performed By: #### L 100.0100, L500.2500 #### [facility] [address] [place], [address] CA,Total 9.2 mg/dL Normal 8.5-10.1 [facility] Comment on above: Performed By: #### L 100.0100, L500.2500 #### [facility] [address] [place], [address] Chloride [Moles/Vol] 108 mmol/L High 98-107 [facility] Comment on above: Performed By: #### L 100.0100, L500.2500 #### [facility] [address] [place], [address] CO2 [Moles/Vol] 26.0 mmol/L Normal 21.0-32.0 [facility] Comment on above: Performed By: #### L 100.0100, L500.2500 #### [facility] [address] [place], [address] Creatinine [Mass/Vol] 0.67 mg/dL Normal 0.55-1.02 [facility] Comment on above: Result Comment: The validity of the calculated GFR GFRAA in patients over 70 years has not been determined. Clinical correlation is essential. Performed By: #### L 100.0100, L500.2500 #### [facility] [address] [place], [address] ECRCL 59.71 ml/min Normal [facility] Comment on above: Performed By: #### L 100.0100, L500.2500 #### [facility] [address] [place], [address] EST GFR - AA 113 mL/min Normal >60 [facility] Comment on above: Result Comment: Afri can Citizen [place] GFR Calc Performed By: #### L 100.0100, L500.2500 #### [facility] [address] [place], [address] GAP 4 Low 5-15 [facility] Comment on above: Performed By: #### L 100.0100, L500.2500 #### [facility] [address] [place], [address] GFR/1.73 sq M.predicted among non-blacks MDRD (S/P/Bld) [Vol rate/Area] 93 mL/min/{1.73_m2} Normal >60 [facility] Comment on above: Result Comment: Non- GFR Calc Performed By: #### L 100.0100, L500.2500 #### [facility] [address] [place], [address] Glucose [Mass/Vol] 119 mg/dL High 74-106 [facility] Comment on above: Result Comment: Fast ing Glucose result from 100 to 125 mg/dL suggests IMPAIRED HOMEOSTASIS per A.D.A. criteria. Performed By: #### L 100.0100, L500.2500 #### [facility] [address] [place], [address] Potassium [Moles/Vol] 3.6 mmol/L Normal 3.5-5.1 [facility] Comment on above: Performed By: #### L 100.0100, L500.2500 #### [facility] [address] [place], [address] Sodium [Moles/Vol] 138 mmol/L Normal 136-145 [facility] Comment on above: Performed By: #### L 100.0100, L500.2500 #### [facility] [address] [place], [address] Urea nitrogen [Mass/Vol] 18 mg/dL Normal 7-18 [facility] Comment on above: Performed By: #### L 100.0100, L500.2500 #### [facility] [address] [place], [address] CBC W/Diff, Automatedon 10-2 Absolute Lymph 1.10 X10 3/uL Normal 0.83-4.51 [facility] Comment on above: Performed By: #### L 100.0100, L500.2500 #### [facility] [address] [place], [address] Absolute Neut 4.8 X10 3/uL Normal 2.0-7.7 [facility] Comment on above: Performed By: #### L 100.0100, L500.2500 #### [facility] [address] [place], [address] Basophils/100 WBC (Bld) 0.4 % Normal 0-1 [facility] Comment on above: Performed By: #### L 100.0100, L500.2500 #### [facility] [address] [place], [address] Eosinophils/100 WBC (Bld) 3.7 % Normal 0-5 [facility] Comment on above: Performed By: #### L 100.0100, L500.2500 #### [facility] [address] [place], [address] Erythrocyte distribution width (RBC) [Ratio] 11.9 % Normal 11.6-14.6 [facility] Comment on above: Performed By: #### L 100.0100, L500.2500 #### [facility] [address] [place], [address] Hematocrit (Bld) [Volume fraction] 35.9 % Low 37-47 [facility] Comment on above: Performed By: #### L 100.0100, L500.2500 #### [facility] [address] [place], [address] Hemoglobin (Bld) [Mass/Vol] 12.4 g/dL Normal 12.0-15.0 [facility] Comment on above: Performed By: #### L 100.0100, L500.2500 #### [facility] [address] [place], [address] IG% 0.400 Normal 0.0-0.9 [facility] Comment on above: Result Comment: IG% - Immature Granulocytes (promyelocytes, myelocytes and metamyelocytes) > 1% indicates that a LEFT SHIFT is Present. Performed By: #### L 100.0100, L500.2500 #### [facility] [address] [place], [address] Lymphocytes/100 WBC (Bld) 16.2 % Low 19-41 [facility] Comment on above: Performed By: #### L 100.0100, L500.2500 #### [facility] [address] [place], [address] MCH (RBC) [Entitic mass] 31.2 pg Normal 27.0-32.0 [facility] Comment on above: Performed By: #### L 100.0100, L500.2500 #### [facility] [address] [place], [address] MCHC (RBC) [Mass/Vol] 34.5 g/dL Normal 32-36 [facility] Comment on above: Performed By: #### L 100.0100, L500.2500 #### [facility] [address] [place], [address] MCV (RBC) [Entitic vol] 90.4 fL Normal 81-99 [facility] Comment on above: Performed By: #### L 100.0100, L500.2500 #### [facility] [address] [place], [address] Monocytes/100 WBC (Bld) 8.5 % Normal 0-10 [facility] Comment on above: Performed By: #### L 100.0100, L500.2500 #### [facility] [address] [place], [address] Neutrophils/100 WBC (Bld) 70.8 % High 47-70 [facility] Comment on above: Performed By: #### L 100.0100, L500.2500 #### [facility] [address] [place], [address] Nucleated RBC (Bld) [#/Vol] 0 10*3/uL Normal 0-5 [facility] Comment on above: Performed By: #### L 100.0100, L500.2500 #### [facility] [address] [place], [address] Platelet mean volume (Bld) [Entitic vol] 9.7 fL Normal 6.2-12.0 [facility] Comment on above: Performed By: #### L 100.0100, L500.2500 #### [facility] [address] [place], [address] Platelets (Bld) [#/Vol] 279 10*3/uL Normal 150-450 [facility] Comment on above: Performed By: #### L 100.0100, L500.2500 #### [facility] [address] [place], [address] RBC (Bld) [#/Vol] 3.97 10*6/uL Low 4.2-5.4 [facility] Comment on above: Performed By: #### L 100.0100, L500.2500 #### [facility] [address] [place], [address] RDW SD 39.1 fl Normal 35.1-43.9 [facility] Comment on above: Performed By: #### L 100.0100, L500.2500 #### [facility] [address] [place], [address] WBC (Bld) [#/Vol] 6.8 10*3/uL Normal 4.4-11.0 [facility] Comment on above: Performed By: #### L 100.0100, L500.2500 #### [facility] [address] [place], [address] Basic Metabolic Profile (BMP )on 09-12-2024 BUN/CRE 27.4 RATIO High - [facility] Comment on above: Performed By: #### L 500.2500, L100.0100 #### [facility] [address] [place], [address] CA,Total 9.4 mg/dL Normal 8.5-10.1 [facility] Comment on above: Performed By: #### L 500.2500, L100.0100 #### [facility] [address] [place], [address] Chloride [Moles/Vol] 108 mmol/L High 98-107 [facility] Comment on above: Performed By: #### L 500.2500, L100.0100 #### [facility] [address] [place], [address] CO2 [Moles/Vol] 26.0 mmol/L Normal 21.0-32.0 [facility] Comment on above: Performed By: #### L 500.2500, L100.0100 #### [facility] [address] [place], [address] Creatinine [Mass/Vol] 0.55 mg/dL Normal 0.55-1.02 [facility] Comment on above: Result Comment: The validity of the calculated GFR GFRAA in patients over 70 years has not been determined. Clinical correlation is essential. Performed By: #### L 500.2500, L100.0100 #### [facility] [address] [place], [address] ECRCL 59.71 ml/min Normal [facility] Comment on above: Performed By: #### L 500.2500, L100.0100 #### [facility] [address]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 Normal 8.4-10.2 [facility] ([place]) Comment on above: Performed By: #### C BC, TSH, CMP, ANEU, ADIFF, 265677, GFR #### [address] [address] Chloride [Moles/Vol] 105 mmol/L Normal 98-107 [facility] ([place]) Comment on above: Performed By: #### C BC, TSH, CMP, ANEU, ADIFF, 019522, GFR #### [address] [address] CO2 [Moles/Vol] 31 mmol/L Normal 23-31 [facility] ([place]) Comment on above: Performed By: #### C BC, TSH, CMP, ANEU, ADIFF, [id number], GFR #### [address] [address] Creatinine [Mass/Vol] 0.87 mg/dL Normal 0.55-1.02 [facility] ([place]) Comment on above: Performed By: #### C BC, TSH, CMP, ANEU, ADIFF, [id number], GFR #### [address] [address] Electrolyte Balance 7.0 mEq/L Normal 4.0-15.0 [facility] ([place]) Comment on above: Performed By: #### C BC, TSH, CMP, ANEU, ADIFF, [id number], GFR #### [address] [address] Globulin 4.2 G/dL Normal [facility] ([place]) Comment on above: Performed By: #### C BC, TSH, CMP, ANEU, ADIFF, [id number], GFR #### [address] [address] Glucose [Mass/Vol] 86 mg/dL Normal 80-115 [facility] ([place]) Comment on above: Performed By: #### C BC, TSH, CMP, ANEU, ADIFF, [id number], GFR #### [address] [address] Potassium [Moles/Vol] 3.9 mmol/L Normal 3.5-5.1 [facility] ([place]) Comment on above: Performed By: #### C BC, TSH, CMP, ANEU, ADIFF, [id number], GFR #### [address] [address] Sodium [Moles/Vol] 143 mmol/L Normal 136-145 [facility] ([place] Comment on above: Performed By: #### C BC, TSH, CMP, ANEU, ADIFF, [id number], GFR #### [address] [address] Total Protein 7.6 G/dL Normal 6.4-8.2 [facility] ([place] Comment on above: Performed By: #### C BC, TSH, CMP, ANEU, ADIFF, [id number], GFR #### [address] [address] Urea nitrogen [Mass/Vol] 22 mg/dL High 7-18 [facility] ([place] Comment on above: Performed By: #### C BC, TSH, CMP, ANEU, ADIFF, [id number], GFR #### [address] [address] TSHon 10-20-2023 TSH Qn 0.98 m[IU]/L Normal 0.36-3.74 [facility]) Comment on above: Performed By: #### C BC, TSH, CMP, ANEU, ADIFF, [id number], GFR #### [address] [place], [place] [address] LABORATORYOrdered By: Liam Durand on 04-22-2023 INR Coag (PPP) [Relative time] 1.0 {INR} Invalid Interpretation Code AH Auto Coag SS PT Coag (PPP) [Time] 12.1 s Invalid Interpretation Code 9.0 - 14.8 seconds AH Auto Coag SS LABORATORYOrdered By: SYSTEM SYSTEM on 04-22-2023 Platelets (Bld) [#/Vol] 217 103/mcL Invalid Interpretation Code 150 - 450 10^3/mcL AH Workflow SS PLTon 04-22-2023 Platelet 217 10 3/mcL Normal 150-450 [facility] ([place]) Comment on above: Performed By: #### P LT, PRO #### [address] [address] PROon 04-22-2023 INR Coag (PPP) [Relative time] 1.0 {INR} Normal [facility] ([place] Comment on above: Result Comment: [employer] [place] [employer] (CHEST, 1992, 102:312S-25S) recommended therapeutic range for oral anticoagulant therapy is: LOW RISK: Prophylaxis of venous thrombosis INR: 2.0-3.0 Treatment of pulmonary embolism 2.0-3.0 Prevention of systemic embolism 2.0-3.0 HIGH RISK: Mechanical prosthetic valves 2.5-3.5 Performed By: #### P LT, PRO ####[address] [address] PT Coag (PPP) [Time] 12.1 s Normal 9.0-14.8 [facility] ([place]) Comment on above: Result Comment: Effe ctive 06/06/08, Protime results may be affected by some antibiotics (i.e. Ciprofloxacin, Azithromycin, Bactrim) which may potentiate the action of oral anticoagulants, with further increases in Protime/INR. Performed By: #### P LT, PRO ####[address] [address] IR LUMBAR PUNCTUREon 023 IR LUMBAR PUNCTURE ORIGINAL EXAMINATION: LUMBAR PUNCTURE03/26/2023 2:17 pm CLINICAL STATEMENT: NPH FLUOROSCOPY: 1.3 minutes AIR KERMA DOSE: 46.51 mGy NEEDLE: 20 G spinal needle CSF VOLUME REMOVED: 0 mL CSF APPEARANCE: Clear PUNCTURE LEVEL: L2-L3 and L3-L4 The procedure, risks, and alternatives, were discussed and all questions were answered. Written informed consent obtained. Accompanying paperwork was verified for accuracy. Directed history and physical exam performed prior to the procedure. Medication reconciliation performed by nursing personnel. Procedure was performed using a cap, sterile gown, sterile gloves, a large sterile sheet, hand hygiene and Betadine for cutaneous antisepsis. The patient was positioned prone on the table and prepped and draped in usual sterile fashion. A critical pause was performed with assisting personnel just prior to the procedure with the patient's identity confirmed using 2 identifiers, confirming site and side. Prior to sterile prep, a puncture site was selected and marked under fluoroscopy. At level L2-L3, 5 ml of 2% lidocaine was administered at the puncture site for local anesthesia. A needle was advanced into the thecal sac under fluoroscopic guidance. A documentation image was stored. Position was confirmed with flow of CSF from the needle. Opening pressure was obtained and was 14 cm of H2O. After that, CSF fluid ceased flow. A 2nd level was chosen at L3-L4. 5 mL of 2% lidocaine was administered at the puncture site for local anesthesia. A needle was advanced into the thecal sac under fluoroscopic guidance. Documented image was stored. There was a flash of CSF in the needle hub however the fluid did not flow beyond that and we were unable to drain any fluid. A Band-Aid was placed at the puncture sites. The patient tolerated the procedure well without immediate complication. Patient condition was stable. IMPRESSION: Fluoroscopic guided lumbar puncture resulted in a dry tap. The procedure was performed by Abi Roberts, Physician Aviation Safety Equipment Technician. I concur with the contents of the report. Interpreted by: Juni Hogan Preliminary Report By: Abi Roberts PA-C Electronically signed By Juni Hogan Dictated Date: 03/26/2023 4:54:06 PM Prelim Date: 03/26/2023 5:00:14 PM Sign Date: 03/26/2023 5:52:13 PM Ordering Provider: HELEN LOWE [facility] ([place]) NM CISTERNOGRAPHYon 02-28-20 NM CISTERNOGRAPHY ORIGINAL EXAMINATION: CISTERNOGRAPHY02/28/20 1:11 pm TECHNIQUE: A sterile and pyrogen-free injection of 1.5 millicuries of In-111 DTPA was administered by direct injection into the patient's lumbar subarachnoid space under fluoroscopic guidance. Multiple images of the cerebrospinal fluid (CSF) spaces were then acquired at 4, 24, and 48 hours after injection. COMPARISON: Head CT 01/07/2023 HISTORY: ORDERING SYSTEM PROVIDED HISTORY: Reason for Exam: NPH FINDINGS: 4 hour images demonstrate radiotracer within the CSF of the lumbar spine, basal cisterns, sylvian fissures, and interhemispheric fissure. There is minimal radiotracer reflux into the lateral ventricles. Images acquired at 24 hours demonstrate delayed progression of radiotracer along the cerebral convexities and persistence of radiotracer within the lateral ventricles. Images acquired at 48 hours demonstrate com migration of radiotracer along the cerebral convexities and mild/minimal persistent radiotracer within the lateral ventricles. IMPRESSION: Type 4, with delayed flow over convexities, however with mild persistent reflux at 24 hours. This is suggestive of/compatible with NPH. I have personally reviewed the images of this examination and agree with the resident's findings and interpretation. Interpreted by: Annie Canada Preliminary Report By: Kaitlynn Chun Electronically signed By Annie Canada Dictated Date: 02/27/2023 1:53:33 PM Prelim Date: 02/27/2023 3:41:55 PM Sign Date: 02/27/2023 3:41:55 PM Ordering Provider: HELEN Guerrero [facility] ([place]) LABORATORYOrdered By: Liam Durand on 02-25-2023 INR Coag (PPP) [Relative time] 1.1 {INR} Invalid Interpretation Code Auto Coag SS PT Coag (PPP) [Time] 12.7 s Invalid Interpretation Code 9.0 - 14.9 seconds Auto Coag SS LABORATORYOrdered By: SYSTEM SYSTEM on 02-25-2023 Platelets (Bld) [#/Vol] 213 103/mcL Invalid Interpretation Code 150 - 450 10^3/mcL AH Workflow SS PLTon 02-25-2023 Platelet 213 10 3/mcL Normal 150-450 [facility] ([place]) Comment on above: Performed By: #### P LT, PRO ####[place] [address] PROon 02-25-2023 INR Coag (PPP) [Relative time] 1.1 {INR} Normal [facility] ([place] Comment on above: Result Comment: [employer] [place] [employer] (CHEST, 1992, 102:312S-25S) recommended therapeutic range for oral anticoagulant therapy is: LOW RISK: Prophylaxis of venous thrombosis INR: 2.0-3.0 Treatment of pulmonary embolism 2.0-3.0 Prevention of systemic embolism 2.0-3.0 HIGH RISK: Mechanical prosthetic valves 2.5-3.5 Performed By: #### P LT, PRO ####[address] [address] PT Coag (PPP) [Time] 12.7 s Normal 9.0-14.9 [facility] ([place]) Comment on above: Result Comment: Effe ctive 06/06/08, Protime results may be affected by some antibiotics (i.e. Ciprofloxacin, Azithromycin, Bactrim) which may potentiate the action of oral anticoagulants, with further increases in Protime/INR. Performed By: #### P LT, PRO ####[address] [address] [address] HEAD OR BRAIN W/O CONTRAS Ton 01-07-2023 CT HEAD OR BRAIN W/O CONTRAST ORIGINAL HISTORY: Dementia COMPARISON: 02 May 2021 TECHNIQUE: Routine non-contrast head CT with sagittal and coronal reconstructions This exam was performed according to our departmental dose optimization program, and includes the following measures where applicable: automated exposure control, adjustment of the mAs and/or kVp according to patient size and/or exam, and an iterative reconstruction algorithm. FINDINGS: The study is degraded by motion. The ventricles and sulci are moderately enlarged; there is mild disproportionate ventriculomegaly. There are no abnormal intra or extra-axial fluid collections. There is mild irregular decreased attenuation in the cerebral white matter; morse-white matter differentiation is maintained. The calvaria and the bones of the base of the skull are intact. IMPRESSION: Volume loss with possible mild relative ventriculomegaly, suggestive of hydrocephalus. Mild small vessel ischemic disease. Interpreted by: Rebeka Irene MD Preliminary Report By: Rebeka Irene MD Electronically signed By Rebeka Irene MD Dictated Date: 01/07/2023 8:48:13 PM Prelim Date: 01/07/2023 8:50:16 PM Sign Date: 01/07/2023 8:50:16 PM Ordering Provider: JENN Guerrero [facility] ([place]) Vital Signs Date Time Vital Sign Value Performing Clinician Maddison mackenzie 05-10-2025 10:42-0400 Body height 154.9 cm Chris Valderrama MD Work Phone: [facility] [employer] 05-10-2025 10:42-0400 Body mass index (BMI) [Ratio] 28.34 kg/m2 Chris Valderrama MD Work Phone: [facility] [employer] 05-10-2025 10:42-0400 Body weight 68.04 kg Chris Valderrama MD Work Phone: [facility] [employer] 05-10-2025 10:42-0400 Diastolic blood pressure 68 mm[Hg] Chris Valderrama MD Work Phone: [facility] [employer] 05-10-2025 10:42-0400 Heart rate 79 /min Chris Valderrama MD Work Phone: [facility] [employer] 05-10-2025 10:42-0400 Systolic blood pressure 113 mm[Hg] Chris Valderrama MD Work Phone: [facility] [employer] 12-19-2024 15:10-0500 Body temperature 98.06 [degF] BENEDICTO VARGHESET DO [facility] 12-19-2024 15:10-0500 Body weight 69 kg BENEDICTO FROMMELT DO [facility] 12-19-2024 15:10-0500 Diastolic Blood Pressure Non-Invasive 73 mm[Hg] BENEDICTO FROMMELT DO [facility] 12-19-2024 15:10-0500 Heart rate 56 /min BENEDICTO FROMMELT DO [facility] 12-19-2024 15:10-0500 Respiratory rate 16 /min BENEDICTO FROMMELT DO [facility] 12-19-2024 15:10-0500 Systolic Blood Pressure Non-Invasive 149 mm[Hg] BENEDICTO ZAMUDIO DO [facility] 10-11-2024 09:04-0500 Body height 154.9 cm Chris Valderrama MD Work Phone: [facility] 10-11-2024 09:04-0500 Body mass index (BMI) [Ratio] 28.34 kg/m2 Chris Valderrama MD Work Phone: [facility] 10-11-2024 09:04-0500 Body weight 68.04 kg Chris Valderrama MD Work Phone: [facility] 10-11-2024 09:04-0500 Diastolic blood pressure 66 mm[Hg] Chris Valderrama MD Work Phone: [facility] 10-11-2024 09:04-0500 Heart rate 51 /min Chris Valderrama MD Work Phone: [facility] 10-11-2024 09:04-0500 Systolic blood pressure 105 mm[Hg] Chris Valderrama MD Work Phone: [facility] 04-22-2023 14:58-0400 Diastolic Blood Pressure Non-Invasive 63 1 HELEN LOWE MD [facility] 04-22-2023 14:58-0400 Heart rate 88 /min HELEN LOWE MD [facility] 04-22-2023 14:58-0400 Respiratory rate 16 /min HELEN LOWE MD [facility] 04-22-2023 14:58-0400 Systolic Blood Pressure Non-Invasive 123 1 HELEN LOWE MD [facility] 04-22-2023 13:40-0400 Diastolic Blood Pressure Non-Invasive 60 1 HELEN LOWE MD [facility] 04-22-2023 13:40-0400 Heart rate 47 /min HELEN LOWE MD [facility] 04-22-2023 13:40-0400 Respiratory rate 16 /min HELEN LOWE MD [address] [place] [id number] 04-22-2023 13:40-0400 Systolic Blood Pressure Non-Invasive 110 1 HELEN LOWE MD [address] [place] [address] 04-22-2023 12:18-0400 Blood Pressure Cuff Size HELEN LOWE MD [address] [place] [address] 04-22-2023 12:18-0400 Blood Pressure Location HELEN LOWE MD [address] [place] [address] 04-22-2023 12:18-0400 Blood Pressure Method HELEN LOWE MD [address] [place] [address] 04-22-2023 12:18-0400 Body height 160 cm HELEN LOWE MD [address] [place] [address] 04-22-2023 12:18-0400 Body temperature 97.16 [degF] HELEN LOWE MD [address] [place] [address] 04-22-2023 12:18-0400 Body weight 72.7 kg HELEN LOWE MD [address] [place] [address] 04-22-2023 12:18-0400 Body weight 28.4 kg/m2 HELEN LOWE MD [address] [place] [address] 04-22-2023 12:18-0400 Diastolic Blood Pressure Non-Invasive 63 1 HELEN LOWE MD [address] [place] [address] 04-22-2023 12:18-0400 Heart rate 45 /min HELEN LOWE MD [address] [place] [address] 04-22-2023 12:18-0400 Respiratory rate 18 /min HELEN LOWE MD [address] [place] [address] 04-22-2023 12:18-0400 Systolic Blood Pressure Non-Invasive 123 1 HELEN LOWE MD [address] [place] [address] 03-26-2023 14:03-0400 Diastolic Blood Pressure Non-Invasive 87 1 HELEN LOWE MD [address] [place] [address] 03-26-2023 14:03-0400 Heart rate 42 /min HELEN LOWE MD [address] [place] [address] 03-26-2023 14:03-0400 Respiratory rate 18 /min HELEN LOWE MD [address] [place] [address] 03-26-2023 14:03-0400 Systolic Blood Pressure Non-Invasive 133 1 HELEN LOWE MD [address] [place] [address] 03-26-2023 12:31-0400 Blood Pressure Cuff Size HELEN LOWE MD [address] [place] [address] 03-26-2023 12:31-0400 Blood Pressure Location HELEN LOWE MD [address] [place] [address] 03-26-2023 12:31-0400 Blood Pressure Method HELEN LOWE MD [address] [place] [address] 03-26-2023 12:31-0400 Body height 160 cm HELEN LOWE MD [address] [place] [address] 03-26-2023 12:31-0400 Body temperature 98.06 [degF] HELEN LOWE MD [address] [place] [address] 03-26-2023 12:31-0400 Body weight 72.7 kg HELEN LOWE MD [address] [place] [address] 03-26-2023 12:31-0400 Body weight 28.4 kg/m2 HELEN LOWE MD [address] [place] [address] 03-26-2023 12:31-0400 Diastolic Blood Pressure Non-Invasive 66 1 HELEN LOWE MD [address] [place] [address] 03-26-2023 12:31-0400 Heart rate 42 /min HELEN LOWE MD [address] [place] [address] 03-26-2023 12:31-0400 Respiratory rate 18 /min HELEN LOWE MD [address] [place] [address] 03-26-2023 12:31-0400 Systolic Blood Pressure Non-Invasive 105 1 HELEN LOWE MD [address] [place] [address] 02-25-2023 11:51-0400 Diastolic Blood Pressure Non-Invasive 66 1 HELEN LOWE MD [address] [place] [address] 02-25-2023 11:51-0400 Heart rate 64 /min HELEN LOWE MD [address] [place] [address] 02-25-2023 11:51-0400 Respiratory rate 18 /min HELEN LOWE MD [address] [place] [address] 02-25-2023 11:51-0400 Systolic Blood Pressure Non-Invasive 115 1 HELEN LOWE MD [address] [place] [address] 02-25-2023 11:50-0400 Diastolic Blood Pressure Non-Invasive 66 1 HELEN LOWE MD [address] [place] [address] 02-25-2023 11:50-0400 Heart rate 68 /min HELEN LOWE MD [address] [place] [address] 02-25-2023 11:50-0400 Respiratory rate 20 /min HELEN LOWE MD [address] [place] [address] 02-25-2023 11:50-0400 Systolic Blood Pressure Non-Invasive 115 1 HELEN LOWE MD [address] [place] [address] 02-25-2023 11:01-0400 Diastolic Blood Pressure Non-Invasive 72 1 HELEN LOWE MD [address] [place] [address] 02-25-2023 11:01-0400 Heart rate 50 /min HELEN LOWE MD [address] [place] [address] 02-25-2023 11:01-0400 Respiratory rate 20 /min HELEN LOWE MD [address] [place] [address] 02-25-2023 11:01-0400 Systolic Blood Pressure Non-Invasive 123 1 HELEN LOWE MD [address] [place] [address] 02-25-2023 08:50-0400 Blood Pressure Cuff Size HELEN LOWE MD [facility] 02-25-2023 08:50-0400 Blood Pressure Location HELEN LOWE MD [facility] 02-25-2023 08:50-0400 Blood Pressure Method HELEN LOWE MD [address] [place] [address] 02-25-2023 08:50-0400 Body height 160 cm HELEN LOWE MD [address] [place] [address] 02-25-2023 08:50-0400 Body temperature 97.88 [degF] HELEN LOWE MD [address] [place] [address] 02-25-2023 08:50-0400 Body weight 72.7 kg HELEN LOWE MD [facility] 02-25-2023 08:50-0400 Body weight 28.4 kg/m2 HELEN LOWE MD [facility] 12-01-2022 19:23-[address] JUN TALBOT MD [facility] 12-01-2022 19:23-0500 Body temperature 97.34 [degF] DR JUN TALBOT MD [facility] 12-01-2022 19:23-0500 Diastolic Blood Pressure Non-Invasive [address] JUN TALBOT MD [facility] 12-01-2022 19:23-0500 Heart rate 53 /min DR JUN TALBOT MD [facility] 12-01-2022 19:23-0500 Systolic Blood Pressure Non-Invasive [address] JUN TALBOT MD [facility] Encounters Encounter Date Encounter Type Care Provider Facility Start: 05-15-2025 End: 05-19-[address] HOMERO BRYAN DO Facility:[facility] Start: 05-15-2025 End: 05-19-[address] HOMERO BRYAN DO [facility] Start: 05-10-2025 End: 05-10-2025 Office outpatient visit 25 minutes Chris Valderrama MD Work Phone: [facility] Comment on above: Staghorn renal calcu macy (Primary Dx); Renal calculus, left Start: 05-10-2025 End: 05-10-2025 ambulatory CHRIS Julianna [employer] [facility] [employer] [facility] Start: 05-05-2025 End: 05-08-2025 Follow-up encounter Jina Patterson Chani Tompkins CNP Work Phone: [facility] Comment on above: XR abdomen 1 view Start: 05-03-2025 End: 05-03-2025 Subsequent hospital visit by physician Chris Valderrama MD Work Phone: [facility] Radiology Comment on above: Staghorn renal calcu macy; Renal calculus, left Start: 05-03-2025 End: 05-03-2025 ambulatory CHRIS Levine [employer] [facility] Start: 12-19-2024 End: 12-19-2024 Emergency department patient visit BENEDICTO ZAMUDIO DO [facility] Start: 12-19-2024 End: 12-19-2024 ambulatory [facility] Comment on above: Impaired functional mobility, balance, gait, and endurance (Primary Dx) Start: 10-18-2024 End: 10-18-2024 Subsequent hospital visit by physician Chris Valderrama MD Work Phone: [facility] CT Comment on above: Staghorn renal calcu macy; Renal calculus, left Start: 10-18-2024 End: 10-18-2024 ambulatory CHRIS Julianna [employer] [facility] Start: 10-11-2024 End: 10-11-2024 Office outpatient new 45 minutes Chris Valderrama MD Work Phone: [facility] Comment on above: Staghorn renal calcu macy (Primary Dx); Renal calculus, left Start: 10-11-2024 End: 10-11-2024 ambulatory CHRIS VALDERRAMA [facility] Start: 09-22-2024 End: 09-22-2024 Telephone encounter Abdiel Downs MD Work Phone: [facility] Start: 09-09-2024 End: 09-15-2024 Evaluation and management of inpatient [facility] Facility:[facility] Start: 09-09-2024 ambulatory [facility] Facility: [facility] Start: 09-06-2024 End: 09-06-2024 Emergency department patient visit Lit Cespedes Facility:[facility] Start: 08-03-2024 End: 08-03-2024 Emergency department patient visit Homero Bryan Facility:[facility] Start: 10-20-2023 End: 10-21-2023 ambulatory KOMAL WEN PA-C Facility:[facility] Start: 04-22-2023 End: 04-23-[address] HOMERO BRYAN DO Facility:[facility] Start: 04-22-2023 End: 04-22-2023 Patient encounter procedure HELEN LOWE MD [facility] Start: 03-26-2023 End: 03-27-[address] HOMERO BRYAN DO Facility:[facility] Start: 03-26-2023 End: 03-26-2023 Patient encounter procedure HELEN LOWE MD [facility] Start: 03-04-2023 End: 03-05-[address] HOMERO BRYAN DO Facility:[facility] Start: 02-25-2023 End: 02-26-2023 ambulatory HELEN LOWE MD Facility:A Start: 02-25-2023 End: 02-25-2023 Patient encounter procedure HELEN LOWE MD [facility] Start: 02-06-2023 ambulatory HELEN LOWE MD Facilit y:A Start: 02-02-2023 End: 02-03-[address] HOMERO BRYAN DO Facility:[facility] Start: 01-12-2023 End: 01-12-2023 Admission to same day surgery center DR HOMERO BRYAN DO [facility] Start: 01-07-2023 End: 01-08-[address] HOMERO BRYAN DO Facility:[facility] Start: 01-07-2023 End: 01-07-2023 Patient encounter procedure JENN SALAZAR MD [facility] Start: 01-01-2023 End: 01-08-[address] HOMERO BRYAN DO Facility:[facility] Start: 01-01-2023 End: 01-08-2023 Physical therapy management JENN SALAZAR MD [facility] Start: 12-01-2022 End: 12-01-2022 Emergency department patient visit DR JUN TALBOT MD Facility:[facility] Start: 12-01-2022 End: 12-01-2022 Emergency department patient visit DR JUN TALBOT MD [facility] Procedures Date Procedure Procedure Detail Performing Clinician Hysterectomy DR JUN JAFFE MD Total knee replacement DR ZAK TALBOT MD Comment on above: Left Plan of Treatment Date Care Activity Detail Author Start: 09-06-2034 DTaP/Tdap/Td Vaccine s (2 - Td or Tdap) DTaP/Tdap/Td Vaccines (2 - Td or Tdap) [facility] Start: 09-06-2034 Urine microalbumin profile DTaP,Tdap,Td Vaccine (2 - Td or Tdap) [facility] Start: 2029 RSV Immunization for Adults (1 - 1-dose 75+ series) RSV Immunization for Adults (1 - 1-dose 75+ series) [facility] Start: 2029 RSV Vaccine (1 - 1-d ose 75+ series) RSV Vaccine (1 - 1-dose 75+ series) [facility] Start: 11-14-2025 End: 11-14-2025 Telemedicine consultation with patient 11/14/2025 11:50 AM EST Telemedicine [facility] [address] [place] [phone] Chris Valderrama MD [address] [place] [phone] [facility] Start: 09-09-2025 End: 05-10-2026 XR Abdomen Single view XR abdomen 1 view Imaging Routine Staghorn renal calculus Renal calculus, left Expected: 09/09/2025, Expires: 05/10/2026 [facility] Work Phone: Comment on above: Expected: 09/09/2025 , Expires: 05/10/2026 Start: 07-24-2025 Influenza vaccination Influenz a Vaccine (Season Ended) [facility] Start: 05-10-2025 End: 05-10-2025 Patient encounter procedure 05/10/2025 10:50 AM EDT Office [place] [address] [place] [phone] Chris Valderrama MD [address] [phone] [facility] Start: 11-23-2024 Advance Directive Discussion Advance Directive Discussion [facility] Start: 11-23-2024 Medicare Advantage Annual Wellness Visit Medicare Advantage Annual Wellness Visit [facility] Start: 10-18-2024 End: 10-18-2024 Patient encounter procedure 10/18/2024 4:15 PM EST Appointment [facility] [address] [place] [address] Chris Valderrama MD [address] [place] [phone] [facility] [address] Start: 10-11-2024 End: 10-11-2025 CT Abdomen WO contrast CT abdomen pelvis wo IV contrast Imaging Routine Staghorn renal calculus Renal calculus, left Expected: 10/11/2024, Expires: 10/11/2025 [facility] Comment on above: Expected: 10/11/2024 , Expires: 10/11/2025 Start: 10-11-2024 End: 10-11-2025 XR Abdomen Single view XR abdomen 1 view Imaging Routine Staghorn renal calculus Renal calculus, left Expected: 10/11/2024, Expires: 10/11/2025 [facility] Work Phone: Comment on above: Expected: 10/11/2024 , Expires: 10/11/2025 Start: 10-11-2024 End: 10-11-2024 Patient encounter procedure 10/11/2024 9:00 AM EST Office Visit [facility] [address] [place] [id number] Chris Valderrama MD [address] [place] [address] [facility] Start: 09-28-2024 End: 09-28-2024 Patient encounter procedure 09/28/2024 1:00 PM EST Office Visit [facility] [address] [place] [address] Abdiel Downs MD [address] [place], [place] [id number] [facility] Start: 07-24-2024 COVID-19 Vaccine ( season) COVID-19 Vaccine ( season) [facility] Start: 07-24-2024 Influenza vaccination Influenza Vacc ine (#1) [facility] Start: 11-23-2023 Medicare Advantage Annual Wellness Visit Medicare Advantage Annual Wellness Visit [facility] Start: 2019 Pneumococcal Vaccine : 65+ Years (1 of 1 - PCV) Pneumococcal Vaccine: 65+ Years (1 of 1 - PCV) [facility] Start: 2019 Screening for osteoporosis Bone Density Screening [facility] Start: 2004 Pneumococcal Vaccine : 50+ (1 of 1 - PCV) Pneumococcal Vaccine: 50+ (1 of 1 - PCV) [facility] Start: 2004 Pneumococcal Vaccine : 50+ Years (1 of 1 - PCV) Pneumococcal Vaccine: 50+ Years (1 of 1 - PCV) [facility] Start: 2004 Shingrix Vaccine (1 of 2) Shingrix Vaccine (1 of 2) [facility] Start: 2004 Zoster Vaccines (1 of 2) Zoste r Vaccines (1 of 2) [facility] Start: 1999 Diabetes Screening Diabetes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 nurse to give you one when you are discharged.2.Visit a local take-back location: Many local pharmacies and police departments have programs that collect old and unwanted prescription drugs. Call your local pharmacy or go to http://[employer]/6R3Nd4h to find one close to you.3.Make use of household items: Use cat litter or old coffee grounds to dispose medications if other options are not available. Mix your drugs with these household products, seal them in an airtight container and throw it into the garbage. Call [facility]: [phone] to be sure your drugs can be disposed of in this way. Some medicines may require a different approach.4.Never flush your medications down the toilet. IF YOU HAVE BEEN PRESCRIBED AN OPIOID FOR PAIN If you have been prescribed an opioid (such as hydrocodone, oxycodone or morphine), it is critical to understand the possible side effects and risks of opioid pain medications. Even when taken as directed, opioids can have several side effects including: Tolerance, meaning you might need to take more of a medication for the same pain relief. Nausea, vomiting and/or constipation. Sleepiness, dizziness, dry mouth, confusion, depression or itching. Physical dependence, meaning you have withdrawal symptoms when a medication is stopped, can develop within a few days. KNOW YOUR RESPONSIBILITIES It is important to know exactly how much and how often to take the opioid pain medications you are prescribed. Never take opioids in higher amounts or more often than prescribed. Do not combine opioids with alcohol or other drugs that cause drowsiness, such as benzodiazepines, also known as benzos, including diazepam and alprazolam, muscle relaxants or sleep aids. Never sell or share prescription opioids. This is illegal. Store opioids in a secure place and out of reach of others (including children, family, friends and visitors). The last page of this document has been signed and retained as a CHART COPY. Signatures Patient Education Materials Radiology- Lumbar Puncture 03/07/2020 (Custom) Medication Leaflets My discharge plan and instructions have been reviewed and explained to me and I,NATHANIEL WILLOUGHBY understand my current condition and have read and understand these discharge instructions. I have received a written copy of the plan/instructions. If I have questions, I am aware that I should contact my doctor. 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 04-22-2023 Evaluation + Plan note Extrac lorne from: Title:IR pre procedure H&P Author:JERAD ROBERTS PA-C Date:04/22/23 Interventional Radiology Focused Preprocedure History/Physical Reason for Visit Hydrocephalus History of Presenting Illness/Planned IR Procedure Hydrocephalus. LP was attempted on 03/26/2023 but after measuring pressure the CSF ceased flowing. The patient was is here for repeat LP. Allergies (1) ActiveReaction NKANone Documented Home Medications (4) Active carbidopa-levodopa 25 mg-100 mg oral tablet levETIRAcetam 500 mg oral tablet 1,000 mg = 2 tab(s), Oral, BID levothyroxine 125 mcg (0.125 mg) oral tablet 125 mcg = 1 tab(s), Oral, qDay Tylenol 1,000 mg, PRN, Oral, BID Problem List/Past Medical History Alzheimer's dementia, late onset, with behavioral disturbance Epilepsy History of DVT of lower extremity Hypothyroid Mixed incontinence urge and stress NPH (normal pressure hydrocephalus) Surgical History Total knee arthroplasty Hysterectomy Family History Mother: Macular degeneration Father: Cancer Social History Alcohol Risk Assessment: Denies Alcohol Use; Details: Use: Never. 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 Nutrition/Health Details: Caffeine intake amount: once in awhile. Substance Abuse Risk Assessment: Denies Substance Abuse; Details: Use: Never. Tobacco Details: Nicotine Use: Never (less than 100 in lifetime). Details: Nicotine Use: Never (less than 100 in lifetime).; Comment(s): No Tobacco/Smoke Exposure Physical Exam Vitals: Nimuaqanuub45.2 (12:18) Systolic Blood Gvlwwave313 (12:18) Diastolic Blood Ugloqrsv92 (12:18) Pulse45 (12:18) RpZ429 (12:18) Respiratory Rate18 (12:18) General: Alert, cooperative. Alert. Non-verbal. The remainder of the physical exam is noncontributory. Labs Anticoagulation Labs No qualifying data available. Last Month Hematology: Hgb: ------ : () WBC: ------ Platelet: 217 (04/22/23) PT International Ratio: ------ Assessment/Treatment Plan Image guided Lumbar Puncture Post Procedure Discharge Plan Patient to be discharged home. _ [facility] 05-31-2023 Note IR Procedure Record Summary Primary Physician: Finalized Date/Time: 04/22/23 13:50:31 Pt. Name: NATHANIEL WILLOUGHBY /Sex: 1955 Female Med Rec #: [id number] Physician: Financial #: [id number] Pt. Type: O Room/Bed: / Admit/Disch: 04/22/23 12:10:00 - Institution: Allergies identified in patient's electronic medical record at time of printing on 04/22/23 Entry 1 Substance NKA Reaction Type Allergy Last Modified By: DELIO Jones 12/09/17 06:48:46 Case Attendance- IR Entry 1 Entry 2 Entry 3 Case Attendee PEYTON MENDEZ, Retail Presentation Specialist Vielka, Retail Presentation Specialist Ashleigh Cooley Role Performed Radiology PA/ Scrub Technologist Circulating Technologist Details Time In 04/22/23 13:27:00 04/22/23 13:21:00 04/22/23 13:21:00 Time Out 04/22/23 13:36:00 04/22/23 13:41:00 04/22/23 13:41:00 Procedure/Preference IR Lumbar Puncture SN IR Lumbar Puncture SN IR Lumbar Puncture SN Card Last Modified By: Pepe Vora Rad Tech Kathy Bollon, Rad Tech Kathy A 04/22/23 13:40:36 A 04/22/23 13:40:36 A 04/22/23 13:40:36 Radiology Procedures- IR Entry 1 Procedure/Preference IR Lumbar Puncture SN Actual Procedure IR LUMBAR PUNCTURE SN Card Primary Procedure Yes Primary Surgeon PEYTON MENEDZ PA-C Anesthesia/Sedation Local Type Additional Procedure Times Start 04/22/23 13:27:00 Stop 04/22/23 13:36:00 Specialty Service SN Radiology Procedure EBL 0 mL Last Modified By: Pepe Vora 04/22/23 13:48:19 Radiology Procedure Details - IR Entry 1 Radiology Sedation Case Times Sedation Total Time 0 Radiology - Fluid/Drainage Radiology Contrast Contrast Used? N/A Radiology Flouroscopy Fluoroscopy Used? Yes Fluoro Dose (mGy) 32.49 Fluoro Time 0.3 min Radiology Local Local Used? Yes Local Type: lidocaine 1% Local Dose 4ml Radiology Procedure Site Site/Location lumbar Site Condition No complications Dressing Type Bandaids Technologist Notes 20G spinal needle L2-3 Dry Tap Last Modified By: Pepe Vora 04/22/23 13:48:57 General Case Data - IR Entry 1 Case Information Room IR 16 Case Level IR Level 1 Wound Class None Specialty SN Radiology Procedure ASA Class None Diagnosis Preop Diagnosis hydrocephalus Postop Same As Preop Yes Postop Diagnosis hydrocephalus Last Modified By: Pepe Vora 04/22/23 13:43:28 Procedure Case Times- IR Entry 1 Patient In Procedure Patient In OR 04/22/23 13:21:00 Patient Out of OR 04/22/23 13:41:00 Procedure Start/Stop Procedure Start Time 04/22/23 13:27:00 Procedure Stop Time 04/22/23 13:36:00 Last Modified By: Pepe Vora 04/22/23 13:40:33 Immediate Post Procedure Note - IR Entry 1 Immediate Post Yes Procedure Note displayed for Physician to review Closure Technique Closure Technique Other than Primary Last Modified By: Pepe Vora 04/22/23 13:37:17 Immediate Post Procedure Note - IR Signed By: PEYTON MENDEZ PA-C 04/22/23 13:37 No Complications Allergy Information- IR Entry 1 Allergies Reviewed? Yes Allergies Reviewed Medical Record With Last Modified By: Pepe Vora 04/22/23 13:33:30 Radiology Protocols/Time Out- IR Entry 1 Preprocedure Clinician Verifies Correct patient ID When Clinically Confirmation of correct using name & date Indicated side(s) and site(s), or MRN, Accurate Correct diagnostic and procedure, complete radiology tests Informed Consent, H & P available update immediately prior to procedure, if applicable OR/Procedure Room/Bedside Time 04/22/23 13:21:00 Clinician Verifies Correct patient identity including EMR & records using name and date or medical record number, Accurate procedure consent form, Correct patient position, Necessary equipment is available When Applicable Confirmation correct Team Members PEYTON MENDEZ side and site marked, Present for Time Out Emigdio FOSTER Rad Tech Relevant images and Vielka Woodward Rad results are properly Elle Levine labeled and appropriately displayed, Double verification of sterility indicators complete Instrument Sterility Procedure IR Lumbar Puncture SN Last Modified By: Pepe Vora 04/22/23 13:36:17 Skin Prep- IR Entry 1 Procedure IR Lumbar Puncture SN Skin Prep Prep Area Back Side Medial, Lower By Pepe Beal Prep Agents Betadine Solution Janneth K Hair Removal Method N/A Last Modified By: Pepe Vora 04/22/23 13:37:03 Patient Positioning- IR Entry 1 Procedure IR Lumbar Puncture SN Body Position OP Prone Feet Uncrossed? Yes Pressure Points Yes Checked Last Modified By: Pepe Vora 04/22/23 13:41:01 Radiology Procedure Plan - IR Entry 1 Radiology - Nursing Care Plan Radiology - Action Plan Action Plan - Patient demonstrates Outcome Statement knowledge of the expected reseponses to the invasive procedure, Patient's value system, lifestyle, ethnicity, and culture are considered, respected, and incorporated in the perioperative plan of care., Patient is free from signs and symptoms of infection., Patient is free from signs and symptoms of injury related to positioning., Patient is free from signs and symptoms of chemical injury., Patient receives appropriate medication(s), safely administered during the perioperative period., Patient is free from signs and symptoms of injury caused by extraneous objects (equipment, instrumentation, sponges, or sharps)., Patient is free from signs and symptoms of electrical injury. Outcomes Met? Yes Manager Creative Services Pepe Vora Completing Procedure Plan Last Modified By: Pepe Vora 04/22/23 13:41:35 Transfer Post Procedure- IR Entry 1 RAD - Transport to Recovery Via Stretcher Post-op Destination Receiving Post Procedure Time Out Double Verification Yes Date/Time Verified 04/22/23 13:21:00 of ID band on patient Completed Verfied ID Band on Pepe Vora by Last Modified By: Pepe oVra 04/22/23 13:49:52 Case Comments Finalized By: Pepe Vora Document Signatures Signed By: Pepe Vora 04/22/23 13:[id number] Note Interventional Radiology Focused Preprocedure History/Physical Reason for Visit Hydrocephalus History of Presenting Illness/Planned IR Procedure Hydrocephalus. LP was attempted on 03/26/2023 but after measuring pressure the CSF ceased flowing. The patient was is here for repeat LP. Allergies (1) ActiveReaction NKANone Documented Home Medications (4) Active carbidopa-levodopa 25 mg-100 mg oral tablet levETIRAcetam 500 mg oral tablet 1,000 mg = 2 tab(s), Oral, BID levothyroxine 125 mcg (0.125 mg) oral tablet 125 mcg = 1 tab(s), Oral, qDay Tylenol 1,000 mg, PRN, Oral, BID Problem List/Past Medical History Alzheimer's dementia, late onset, with behavioral disturbance Epilepsy History of DVT of lower extremity Hypothyroid Mixed incontinence urge and stress NPH (normal pressure hydrocephalus) Surgical History Total knee arthroplasty Hysterectomy Family History Mother: Macular degeneration Father: Cancer Social History Alcohol Risk Assessment: Denies Alcohol Use; Details: Use: Never. 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 Nutrition/Health Details: Caffeine intake amount: once in awhile. Substance Abuse Risk Assessment: Denies Substance Abuse; Details: Use: Never. Tobacco Details: Nicotine Use: Never (less than 100 in lifetime). Details: Nicotine Use: Never (less than 100 in lifetime).; Comment(s): No Tobacco/Smoke Exposure Physical Exam Vitals: Ovapsvtrkrk86.2 (12:18) Systolic Blood Qgutnzak705 (12:18) Diastolic Blood Drqlthia46 (12:18) Pulse45 (12:18) NpT664 (12:18) Respiratory Rate18 (12:18) General: Alert, cooperative. Alert. Non-verbal. The remainder of the physical exam is noncontributory. Labs Anticoagulation Labs No qualifying data available. Last Month Hematology: Hgb: ------ : () WBC: ------ Platelet: 217 (04/22/23) PT International Ratio: ------ Assessment/Treatment Plan Image guided Lumbar Puncture Post Procedure Discharge Plan Patient to be discharged home. _ Digitally Signed by ABI ROBERTS PA-C on 04/22/2023 12:46 PM Digitally Signed by REBEKA RONDON MD on 04/22/2023 03:[id number] Note ORIGINAL EXAMINATION: LUMBAR PUNCTURE03/26/2023 2:17 pm CLINICAL STATEMENT: NPH FLUOROSCOPY: 1.3 minutes AIR KERMA DOSE: 46.51 mGy NEEDLE: 20 G spinal needle CSF VOLUME REMOVED: 0 mL CSF APPEARANCE: Clear PUNCTURE LEVEL: L2-L3 and L3-L4 The procedure, risks, and alternatives, were discussed and all questions were answered. Written informed consent obtained. Accompanying paperwork was verified for accuracy. Directed history and physical exam performed prior to the procedure. Medication reconciliation performed by nursing personnel. Procedure was performed using a cap, sterile gown, sterile gloves, a large sterile sheet, hand hygiene and Betadine for cutaneous antisepsis. The patient was positioned prone on the table and prepped and draped in usual sterile fashion. A critical pause was performed with assisting personnel just prior to the procedure with the patient's identity confirmed using 2 identifiers, confirming site and side. Prior to sterile prep, a puncture site was selected and marked under fluoroscopy. At level L2-L3, 5 ml of 2% lidocaine was administered at the puncture site for local anesthesia. A needle was advanced into the thecal sac under fluoroscopic guidance. A documentation image was stored. Position was confirmed with flow of CSF from the needle. Opening pressure was obtained and was 14 cm of H2O. After that, CSF fluid ceased flow. A 2nd level was chosen at L3-L4. 5 mL of 2% lidocaine was administered at the puncture site for local anesthesia. A needle was advanced into the thecal sac under fluoroscopic guidance. Documented image was stored. There was a flash of CSF in the needle hub however the fluid did not flow beyond that and we were unable to drain any fluid. A Band-Aid was placed at the puncture sites. The patient tolerated the procedure well without immediate complication. Patient condition was stable. IMPRESSION: Fluoroscopic guided lumbar puncture resulted in a dry tap. The procedure was performed by Abi Roberts, Physician Aviation Safety Equipment Technician. I concur with the contents of the report. Interpreted by: Juni Hogan Preliminary Report By: Abi Roberts PA-C Electronically signed By Juni Hogan Dictated Date: 03/26/2023 4:54:06 PM Prelim Date: 03/26/2023 5:00:14 PM Sign Date: 03/26/2023 5:52:13 PM Ordering Provider: HELEN LOWE [facility] [id number] History and physical note IR PREPROCEDURE H&P UPDATE IF A HISTORY AND PHYSICAL EXAMINATION HAS BEEN COMPLETED PRIOR TO ADMISSION TO THE HOSPITAL, AN UPDATED EXAMINATION MUST BE COMPLETED AND DOCUMENTED WITHIN 24 HOURS AFTER ADMISSION OR REGISTRATION BUT BEFORE A SURGICAL PROCEDURE. I have examined the patient, reviewed the H&P, and there are no changes unless noted below: _ The most recent H&P/Office Note was performed on 03/04/2023 and can be found in the [place] Electronic [facility] Records ([facility]). Peyton Mendez PA-C Interventional Radiology Pager [phone] IR Dept [id number] [facility] Digitally Signed by PEYTON MENDEZ PA-C on 03/26/2023 03:53 PM Digitally Signed by JUNI HOGAN MD on 03/26/2023 05:39 PM [address]04-2023 Hospital Discharge instructions Patient Education 03/26/2023 13:12:11 Radiology- Lumbar Puncture 03/07/2020 (CUSTOM) [place] Lumbar Puncture Discharge Instructions Interventional Radiology [facility] Imaging Services [address] [place] [address] Your physician has ordered a lumbar puncture for you today. A small amount of cerebrospinal fluid (CSF) that surrounds the spinal canal and brain was drained through a small needle puncture in your lower back. This fluid will be sent to the lab for testing. This procedure will usually cause some soreness around the puncture site for a day or two. Some people may experience a headache after a lumbar puncture. Please follow the instructions below to reduce the chance of experiencing complications. Diet: Resume your normal diet as tolerated. Drink at least 8 to 10 glasses of water over the next 24 hours. Activity: You will be asked to lie flat for 1 hour at the hospital following your procedure. Getting up too soon may worsen your headache. Therefore, it is important that you LIE FLAT (your head level with the rest of your body on your side, back or stomach) for the next 6 hours after you return home. Then, relax with minimal activity for the rest of the day. Avoid strenuous activity for 24 hours following the procedure. Do not lift anything more than 10 pounds for 24 hours. You may bathe/shower as usual after 24 hours. Dressing: Change the band aid as needed. It may be removed 24 hours after your procedure. Pain Control: The puncture site may be sore for 1 to 2 days following the procedure. About 1 in 5 patients develop a headache. If this occurs; follow the directions below: Enco-jpy-rtqlgrd pain medication should be used for pain or discomfort. Please check with the physician who ordered this procedure for you for their specific recommendations. Lay flat on your back and only get up to use the restroom for the remainder of the day. ?Drink extra fluids, including caffeinated beverages, unless otherwise directed by your ordering physician. Medication: Please resume home medications today as scheduled. When to seek medial care: Foul odor, pus drainage, redness, or swelling at puncture site. Excessive bleeding from puncture site. Fever greater than 101 degrees and chills. Severe postural headache: A headache that gets worse when standing and is relieved or improves when laying down, persists regardless of bed rest and increased fluids, and last more than 24 hours following the procedure. If you experience any of these issues during the first 24 hours, please follow the instruction below: 8:00 am- 5:00 pm call [phone] After 5:00 pm call [phone] After 24 hours, contact the physician who ordered this procedure for you. Obtaining test results: Please make an appointment with your doctor to obtain your test results. They are usually availablewithin 4 to 7 business days. Do not assume everything is normal if you have not heard from your doctor or medical facility. It is important for you to follow up on all of your test results. Special Instructions: Follow Up Care 03/04/2023 16:35:48 With:HELEN LOWE MD, Neurosurgery Address: [address] [place] [address] [place] [address]- [phone] When: Unknown Comments:Follow-up as scheduled [facility] 05-04-2023 Note ORIGINAL EXAMINATION: LUMBAR PUNCTURE03/26/2023 2:17 pm CLINICAL STATEMENT: NPH FLUOROSCOPY: 1.3 minutes AIR KERMA DOSE: 46.51 mGy NEEDLE: 20 G spinal needle CSF VOLUME REMOVED: 0 mL CSF APPEARANCE: Clear PUNCTURE LEVEL: L2-L3 and L3-L4 The procedure, risks, and alternatives, were discussed and all questions were answered. Written informed consent obtained. Accompanying paperwork was verified for accuracy. Directed history and physical exam performed prior to the procedure. Medication reconciliation performed by nursing personnel. Procedure was performed using a cap, sterile gown, sterile gloves, a large sterile sheet, hand hygiene and Betadine for cutaneous antisepsis. The patient was positioned prone on the table and prepped and draped in usual sterile fashion. A critical pause was performed with assisting personnel just prior to the procedure with the patient's identity confirmed using 2 identifiers, confirming site and side. Prior to sterile prep, a puncture site was selected and marked under fluoroscopy. At level L2-L3, 5 ml of 2% lidocaine was administered at the puncture site for local anesthesia. A needle was advanced into the thecal sac under fluoroscopic guidance. A documentation image was stored. Position was confirmed with flow of CSF from the needle. Opening pressure was obtained and was 14 cm of H2O. After that, CSF fluid ceased flow. A 2nd level was chosen at L3-L4. 5 mL of 2% lidocaine was administered at the puncture site for local anesthesia. A needle was advanced into the thecal sac under fluoroscopic guidance. Documented image was stored. There was a flash of CSF in the needle hub however the fluid did not flow beyond that and we were unable to drain any fluid. A Band-Aid was placed at the puncture sites. The patient tolerated the procedure well without immediate complication. Patient condition was stable. IMPRESSION: Fluoroscopic guided lumbar puncture resulted in a dry tap. The procedure was performed by Abi Roberts, Physician Aviation Safety Equipment Technician. I concur with the contents of the report. Interpreted by: Juni Hogan Preliminary Report By: Abi Roberts PA-C Electronically signed By Juni Hogan Dictated Date: 03/26/2023 4:54:06 PM Prelim Date: 03/26/2023 5:00:14 PM Sign Date: 03/26/2023 5:52:13 PM Ordering Provider: [facility]05-04-2023 Note IR Procedure Record Summary Primary Physician: ABI ROBERTS PA-C Finalized Date/Time: 03/26/23 14:07:49 Pt. Name: NATHANIEL WILLOUGHBY/Sex: 1955 Female Med Rec #: [id number] Physician: Financial #: [id number] Pt. Type: O Room/Bed: / Admit/Disch: 03/26/23 12:15:00 - Institution: Allergies identified in patient's electronic medical record at time of printing on 03/26/23 Entry 1 Substance NKA Reaction Type Allergy Last Modified By: DELIO Jones 12/09/17 06:48:46 Case Attendance- IR Entry 1 Entry 2 Entry 3 Case Attendee ABI ROBERTS PA-C, [employer] Ashleigh Hogan, RN Abdifatah Singh Role Performed Primary Surgeon Certified Lactation Counselor Procedure Nurse Details Time In 03/26/23 13:22:00 03/26/23 13:22:00 03/26/23 13:22:00 Time Out 03/26/23 14:01:00 03/26/23 14:01:00 03/26/23 13:31:00 Procedure/Preference IR Lumbar Puncture SN IR Lumbar Puncture SN IR Lumbar Puncture SN Card Last Modified By: Keke Kent RN Keke Kent RN Keke Kent RN 03/26/23 13:58:02 03/26/23 13:58:02 03/26/23 13:58:02 Entry 4 Case Attendee Keke Kent RN Role Performed Procedure Nurse Details Time In 03/26/23 13:30:00 Time Out 03/26/23 14:01:00 Procedure/Preference IR Lumbar Puncture SN Card Last Modified By: Keke Kent RN 03/26/23 13:58:02 Radiology Procedures- IR Entry 1 Procedure/Preference IR Lumbar Puncture SN Actual Procedure IR LUMBAR PUNCTURE SN Card Primary Procedure Yes Primary Surgeon ABI ROBERTS PA-C Anesthesia/Sedation Local Type Additional Procedure Times Start 03/26/23 13:35:00 Stop 03/26/23 13:55:00 Specialty Service SN Radiology Procedure EBL 0 mL Last Modified By: Keke Kent RN 03/26/23 13:55:54 Radiology Procedure Details - IR Entry 1 Radiology Sedation Case Times Sedation Total Time 0 Radiology - Fluid/Drainage Radiology Contrast Contrast Used? No Radiology Flouroscopy Fluoroscopy Used? Yes Fluoro Dose (mGy) 46.51 Fluoro Time 1.3 min Radiology Local Local Used? Yes Local Type: 2 % lidocaine Local Dose 10cc Radiology Procedure Site Site/Location medial low back Site Condition No complications Dressing Type Bandaids Technologist Notes L2-3. 20g spinal. opening pressure 14, no fluid able to be removed. L3-4. 20g spinal. no fluid able to be removed. Last Modified By: Keke Kent RN 03/26/23 13:57:58 General Case Data - IR Entry 1 Case Information Room IR 16 Case Level IR Level 1 Wound Class None Specialty SN Radiology Procedure ASA Class None Diagnosis Preop Diagnosis nph Postop Same As Preop Yes Postop Diagnosis nph Last Modified By: DELIO Hogan 03/26/23 13:17:55 Procedure Case Times- IR Entry 1 Patient In Procedure Patient In OR 03/26/23 13:22:00 Patient Out of OR 03/26/23 14:01:00 Procedure Start/Stop Procedure Start Time 03/26/23 13:35:00 Procedure Stop Time 03/26/23 13:55:00 Last Modified By: Keke Kent RN 03/26/23 13:58:01 Immediate Post Procedure Note - IR Entry 1 Immediate Post Yes Procedure Note displayed for Physician to review Closure Technique Closure Technique Other than Primary Last Modified By: DELIO Hogan 03/26/23 13:17:30 Immediate Post Procedure Note - IR Signed By: ABI ROBERTS PA-C 03/26/23 13:57 Allergy Information- IR Entry 1 Allergies Reviewed? Yes Allergies Reviewed Medical Record With Last Modified By: DELIO Hogan 03/26/23 13:15:38 Radiology Protocols/Time Out- IR Entry 1 Preprocedure Clinician Verifies Correct patient ID When Clinically Confirmation of correct using name & date Indicated side(s) and site(s), or MRN, Accurate Correct diagnostic and procedure, complete radiology tests Informed Consent, H & P available, Required update immediately blood products, prior to procedure, if implants, devices applicable and/or special equipment available OR/Procedure Room/Bedside Time 03/26/23 13:35:00 Clinician Verifies Correct patient identity including EMR & records using name and date or medical record number, Accurate procedure consent form, Correct patient position, Necessary equipment is available, Anticipated non-routine events with surgical team (case duration, estimated blood loss, patient specific concerns). When Applicable Confirmation correct Team Members Pepe Vora side and site marked, Present for Time Out ALEJANDRA Levine KATARINA Relevant images and Donte FOSTER, results are properly Keke Duran RN labeled and appropriately displayed, Alcohol based prep dry Instrument Sterility Procedure IR Lumbar Puncture SN Last Modified By: Keke Kent RN 03/26/23 13:38:37 Skin Prep- IR Entry 1 Procedure IR Lumbar Puncture SN Skin Prep Prep Area Back Side Lower By Pepe Vora Prep Agents Betadine Scrub Hair Removal Method N/A Last Modified By: Keke Kent RN 03/26/23 13:38:37 Patient Positioning- IR Entry 1 Procedure IR Lumbar Puncture SN Body Position OP Prone Feet Uncrossed? Yes Pressure Points Yes Checked Last Modified By: Keke Kent RN 03/26/23 13:38:37 Radiology Procedure Plan - IR Entry 1 Radiology - Nursing Care Plan Outcome Statement The patient Outcome Statement The patient receives demonstrates knowledge Cont. appropriate of the expected medication(s), safely responses to the administered during the operative/invasive perioperative/invasive procedure., The period., The patient is patient's value system, free from signs and lifestyle, ethnicity, symptoms of injury and culture are caused by extraneous considered, respected, objects (equipment, and incorporated in the instrumentation, perioperative plan of sponges, or sharps)., care., The patient is The patient is free free from signs and from signs and symptoms symptoms of infection., of electrical injury., The patient is free The patient is at or from signs and symptoms returning to of injury related to normothermia at the positioning. conclusion of the immediate postoperative/invasive period. Radiology - Action Plan Outcomes Met? Yes Manager Creative Services DELIO Hogan Completing Procedure Plan Last Modified By: DELIO Hogan 03/26/23 13:17:46 Transfer Post Procedure- IR Entry 1 RAD - Transport to Recovery Via Cart Post-op Destination Receiving Post Procedure Time Out Double Verification Yes Date/Time Verified 03/26/23 13:22:00 of ID band on patient Completed Verfied ID Band on Pepe Vora A by Last Modified By: Keke Kent RN 03/26/23 13:58:15 Case Comments Finalized By: Donte, Keke C RN Document Signatures Signed By: Keke Kent RN 03/26/23 13:58 Keke Kent RN 03/26/23 14:[address] [id number] Evaluation + Plan noteExtracted from: Title:Preprocedure HP Update Author:PEYTON RICHARDS PA-C Date:03/26/23 IR PREPROCEDURE H&P UPDATE IF A HISTORY AND PHYSICAL EXAMINATION HAS BEEN COMPLETED PRIOR TO ADMISSION TO THE HOSPITAL, AN UPDATED EXAMINATION MUST BE COMPLETED AND DOCUMENTED WITHIN 24 HOURS AFTER ADMISSION OR REGISTRATION BUT BEFORE A SURGICAL PROCEDURE. I have examined the patient, reviewed the H&P, and there are no changes unless noted below: _ The most recent H&P/Office Note was performed on 03/04/2023 and can be found in the [facility] ([employer]). Peyton Mendez PA-C Interventional Radiology Pager [phone] IR Dept [phone] Available on [facility] 05-04-2023 Summary of episode note Discharge Instructions Thank you for allowing [facility] to assist you with your healthcare needs. The following is importantdischarge information regarding your hospital visit. Your Care Team HOMERO BRYAN DO What to do next Follow Up Appointments Follow Up with HELEN LOWE MD, Neurosurgery When Why: Follow-up as scheduled Where: [address] [facility] [place] [address]- [phone] Allergies NKA Medications Please ask your primary doctor or pharmacist before taking any other medication not listed, including over the counter drugs, herbal medications, vitamins and or supplements as they may interact withyour home medications. What How Much When Instructions Last Dose Unchanged acetaminophen (Tylenol) 1,000 Milligram by mouth Two (2) times a day as needed for as needed for pain Unchanged carbidopa-levodopa (carbidopa-levodopa 25 mg-100 mg oral tablet) TAKE 1.5 TABLETS BY MOUTH 3 TIMES A DAY Unchanged levETIRAcetam (levETIRAcetam 500 mg oral tablet) 2 tab(s) by mouth Two (2) times a day Unchanged levothyroxine (levothyroxine 125 mcg (0.125 mg) oral tablet) 1 tab(s) by mouth Once a day Please take this list to your next doctor s visit. Bring all medications you take, including over the counter medications, herbals and other supplements with you to your doctor s visit. Patients and families are reminded to discard old lists and to update any records with all medication providers or retail pharmacies. Education Materials [place] Lumbar Puncture Discharge Instructions Interventional Radiology [facility] [address] [address] Your physician has ordered a lumbar puncture for you today. A small amount of cerebrospinal fluid (CSF) that surrounds the spinal canal and brain was drained through a small needle puncture in your lower back. This fluid will be sent to the lab for testing. This procedure will usually cause some soreness around the puncture site for a day or two. Some people may experience a headache after a lumbar puncture. Please follow the instructions below to reduce the chance of experiencing complications. Diet: Resume your normal diet as tolerated. Drink at least 8 to 10 glasses of water over the next 24 hours. Activity: You will be asked to lie flat for 1 hour at the hospital following your procedure. Getting up too soon may worsen your headache. Therefore, it is important that you LIE FLAT (your head level with the rest of your body on your side, back or stomach) for the next 6 hours after you return home. Then, relax with minimal activity for the rest of the day. Avoid strenuous activity for 24 hours following the procedure. Do not lift anything more than 10 pounds for 24 hours. You may bathe/shower as usual after 24 hours. Dressing: Change the band aid as needed. It may be removed 24 hours after your procedure. Pain Control: The puncture site may be sore for 1 to 2 days following the procedure. About 1 in 5 patients develop a headache. If this occurs; follow the directions below: Qssx-byt-[id number] pain medication should be used for pain or discomfort. Please check with the physician who ordered this procedure for you for their specific recommendations. Lay flat on your back and only get up to use the restroom for the remainder of the day. ? Drink extra fluids, including caffeinated beverages, unless otherwise directed by your ordering physician. Medication: Please resume home medications today as scheduled. When to seek medial care: Foul odor, pus drainage, redness, or swelling at puncture site. Excessive bleeding from puncture site. Fever greater than 101 degrees and chills. Severe postural headache: A headache that gets worse when standing and is relieved or improves when laying down, persists regardless of bed rest and increased fluids, and last more than 24 hours following the procedure. If you experience any of these issues during the first 24 hours, please follow the instruction below: 8:00 am- 5:00 pm call [phone] After 5:00 pm call [phone] After 24 hours, contact the physician who ordered this procedure for you. Obtaining test results: Please make an appointment with your doctor to obtain your test results. They are usually availablewithin 4 to 7 business days. Do not assume everything is normal if you have not heard from your doctor or medical facility. It is important for you to follow up on all of your test results. Special Instructions: Additional Information VACCINATE! IT SAVES LIVES! Members of the community who have not yet received the COVID-19 vaccine and would like to receive it can visit one of [facility] vaccine clinics. There are many vaccine clinic locations within the [facility]. For locations and available times, please visit [email or web address] It is important to note that some COVID mobile vaccine clinics are held outdoors and may be canceled in rainy or stormy conditions. To learn more about pediatric vaccinations (ages 5-11), we invite you to visit the [facility] webpage. [email or web address] learn more about the COVID-19 vaccine, we invite you to visit the CDC website for a list of frequently asked questions. https://www.cdc.gov/coronavirus/2019-ncov/vaccines/faq.html [facility] Patient Portal Access Instructions: Stay connected with your healthcare team and access your personal medical information anytime with the [facility] Patient Portal.If you would like a full copy of your medical records, please contact the [facility] Medical Records Department, Thursday through Thursday between 8a.m. and 4:30p.m. Please follow the directions below to access the portal: 1.Access the email account you provided upon registration to the [facility].2.Look for an invitation email from [facility].3.Open the email and access the invitation link: Accept Invitation to [facility]4.Fill in the required cummings to create your account. Sign into [email or web address] with your username and password that you created in the above steps to stay up to date. You can then view a summary of results, a summary of your visits, and the ability to download your summaries to your computer or send the information securely to a physician. Remember that your healthcare information is confidential, so carefully consider who you will allow to register on the [facility] Patient Portal for access to your information. You can also access the [facility] Patient Portal on the [employer]. Simply click on Health Records under [email or web address] and then click on the [employer] logo. HOW TO SAFELY DISPOSE OF PRESCRIPTION MEDICATIONS Please use one of the following methods to safely dispose of your unused medications. 1.Use a drug disposal kit: the drug disposal pouch allows you to safely discard your old and unuseddrugs. Ask your nurse to give you one when you are discharged.2.Visit a local take-back location: Many local pharmacies and police departments have programs that collect old and unwanted prescriptiondrugs. Call your local pharmacy or go to http://[employer].Ballooning Nest Eggs/2K3Qu1a to find one close to you.3.Make use of household items: Use cat litter or old coffee grounds to dispose medications if other options arenot available. Mix your drugs with these household products, seal them in an airtight container andthrow it into the garbage. Call [facility]: [phone] to be sure your drugs can be disposed of in this way. Some medicines may require a different approach.4.Never flush your medications down the toilet. IF YOU HAVE BEEN PRESCRIBED AN OPIOID FOR PAIN If you have been prescribed an opioid (such as hydrocodone, oxycodone or morphine), it is critical to understand the possible side effects and risks of opioid pain medications. Even when taken as directed, opioids can have several side effects including: Tolerance, meaning you might need to take more of a medication for the same pain relief. Nausea, vomiting and/or constipation. Sleepiness, dizziness, dry mouth, confusion, depression or itching. Physical dependence, meaning you have withdrawal symptoms when a medication is stopped, can develop within a few days. KNOW YOUR RESPONSIBILITIES It is important to know exactly how much and how often to take the opioid pain medications you are prescribed. Never take opioids in higher amounts or more often than prescribed. Do not combine opioids with alcohol or other drugs that cause drowsiness, such as benzodiazepines, also known as benzos, including diazepam and alprazolam, muscle relaxants or sleep aids. Never sell or share prescription opioids. This is illegal. Store opioids in a secure place and out of reach of others (including children, family, friends and visitors). The last page of this document has been signed and retained as a CHART COPY. Signatures Patient Education Materials Radiology- Lumbar Puncture 03/07/2020 (CUSTOM) Medication Leaflets My discharge plan and instructions have been reviewed and explained to me and I,NATHANIEL WILLOUGHBY understand my current condition and have read and understand these discharge instructions. I have received a written copy of the plan/instructions. If I have questions, I am aware that I should contact my doctor. 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 NoteORIGINAL PROCEDURE: 1. Lumbar puncture for cisternogram with fluoroscopic guidance 2. Cone beam CT CLINICAL STATEMENT: Hydrocephalus ORDER ENTRY SPECIALIST: Kerrie Sherwood PA-C FLUOROSCOPY: 2.5 minutes AIR KERMA DOSE: 252 mGy NEEDLE: 22 G spinal needle OPENING PRESSURE: 10 cm of H2O CSF APPEARANCE: Clear PUNCTURE LEVEL: L2-3 CONTRAST: 6.5 cc Omni 180 INTRATHECAL INJECTION: 1.5 mCi indium 111 DTPA INJECTION TIME: 1033 The procedure, risks, and alternatives, were discussed and all questions were answered. Written informed consent obtained. Accompanying paperwork was verified for accuracy. Directed history and physical exam performed prior to the procedure. Medication reconciliation performed by nursing personnel. Procedure was performed using a cap, sterile gloves, a large sterile sheet, hand hygiene and Betadine for cutaneous antisepsis. The patient was positioned prone on the table and prepped and draped in usual sterile fashion. A critical pause was performed with assisting personnel just prior to the procedure with the patient's identity confirmed using 2 identifiers, confirming site and side. Prior to sterile prep, a puncture site was selected and marked under fluoroscopy. 2% lidocaine was administered at the puncture site for local anesthesia. A needle was advanced into the thecal sac under fluoroscopic guidance. Intermittent CSF from the needle was noted. Due to lack of continuous CSF flow to confirm intrathecal positioning, contrast was administered. Question as to partial epidural needle positioning. At this point, Dr. Casiano was present for the case. Cone beam CT showed intrathecal administration of contrast. Documentation images were stored. Multiplanar coronal, sagittal, axial, and 3-D reconstructions were created and reviewed by the radiologist on a separate workstation. Dose modulation, iterative reconstruction, and/or weight based adjustment of the mA/kV was utilized to reduce the radiation dose to as low as reasonably achievable. Cone beam CT images demonstrate some epidural and intrathecal contrast inferior to the needle tip with some intrathecal contrast superior to the needle tip. Images showed a CT tip at the low anterior aspect of the canal. The needle was slightly retracted. Free flow of intrathecal contrast under fluoroscopy cephalad confirms intrathecal position of the needle tip. After intrathecal injection, the needle was removed. A Band-Aid was placed at the puncture site. The patient tolerated the procedure well. Patient placed in supine and flat position for 1 hour postprocedure. Complication: None EBL: None Patient condition: Stable, unchanged. IMPRESSION: 1. Successful fluoroscopic guided lumbar puncture for cisternogram. Procedure was performed by Kerrie Sherwood PA-C Interpreted by: Raquel Casiano MD Preliminary Report By: Kerrie Sherwood Electronically signed By Raquel Casiano MD Dictated Date: 02/27/2023 5:11:36 PM Prelim Date: 02/27/2023 5:16:28 PM Sign Date: 03/01/2023 9:43:04 PM Ordering Provider: [facility]02-25-2023 Procedure note IR Brief Post Procedure Note Preprocedure Dx: Hydrocephalus Post Procedure Dx: Same Procedure: Fluoroscopy guided lumbar puncture for cisternogram Anesthesia: Local EBL: Minimal Complications: None Status: Unchanged Findings: 1. Successful lumbar puncture at level L2-3. Opening pressure 10 cm H2O. Due to intermittent flow of CSF through spinal needle, 6.5 cc Omnipaque 180 was administered to confirm intrathecal placement.1.500 mCi In-111DTPA administered intrathecally at 1033 Plan: 1. Patient to [facility] Full report to follow. Orders in [employer]. Kerrie Sherwood PA-C Interventional Radiology Pager # [phone] IR dept: [id number] [facility] Dig[facility] Signed by KERRIE SHERWOOD PA-C on 02/25/2023 03:[address] [facility] [id number] History and physical note IR PREPROCEDURE H&P UPDATE IF A HISTORY AND PHYSICAL EXAMINATION HAS BEEN COMPLETED PRIOR TO ADMISSION TO THE HOSPITAL, AN UPDATED EXAMINATION MUST BE COMPLETED AND DOCUMENTED WITHIN 24 HOURS AFTER ADMISSION OR REGISTRATION BUT BEFORE A SURGICAL PROCEDURE. I have examined the patient, reviewed the H&P, and there are no changes unless noted below: _ The most recent H&P/Office Note was performed on 02/04/2023 and can be found in the [facility] ([employer]). Kerrie Sherwood PA-C Interventional Radiology Pager: [phone] IR dept: [phone] Available on [employer] Digitally Signed by KERRIE SHERWOOD PA-C on 02/25/2023 02:[address] [facility] [id number] Evaluation + Plan noteExtracted from: Title:IR pre-procedure H&P - lumbar puncture for cisternogram Author:KERRIE SHERWOOD PA-C Date:02/25/23 IR PREPROCEDURE H&P UPDATE IF A HISTORY AND PHYSICAL EXAMINATION HAS BEEN COMPLETED PRIOR TO ADMISSION TO THE HOSPITAL, AN UPDATED EXAMINATION MUST BE COMPLETED AND DOCUMENTED WITHIN 24 HOURS AFTER ADMISSION OR REGISTRATION BUT BEFORE A SURGICAL PROCEDURE. I have examined the patient, reviewed the H&P, and there are no changes unless noted below: _ The most recent H&P/Office Note was performed on 02/04/2023 and can be found in the [facility] ([employer]). Kerrie Sherwood PA-C Interventional Radiology Pager: [phone] IR dept: [id number] Available on [facility] Diagnostic Tests Pending * Prothrombin Time - Panel 02/25/[address] [facility] 04-05-2023 Hospital Discharge instructions Patient Education 02/25/2023 11:18:42 Radiology- Lumbar Puncture 03/07/2020 (CUSTOM) [place] Lumbar Puncture Discharge Instructions Interventional Radiology [facility] Imaging Services [address] [place] [address] Your physician has ordered a lumbar puncture for you today. A small amount of cerebrospinal fluid (CSF) that surrounds the spinal canal and brain was drained through a small needle puncture in your lower back. This fluid will be sent to the lab for testing. This procedure will usually cause some soreness around the puncture site for a day or two. Some people may experience a headache after a lumbar puncture. Please follow the instructions below to reduce the chance of experiencing complications. Diet: Resume your normal diet as tolerated. Drink at least 8 to 10 glasses of water over the next 24 hours. Activity: You will be asked to lie flat for 2 hours at the hospital following your procedure. Getting up too soon may worsen your headache. Therefore, it is important that you LIE FLAT (your head level with the rest of your body on your side, back or stomach) for the next 6 hours after you return home. Then, relax with minimal activity for the rest of the day. Avoid strenuous activity for 24 hours following the procedure. Do not lift anything more than 10 pounds for 24 hours. You may bathe/shower as usual after 24 hours. Dressing: Change the band aid as needed. It may be removed 24 hours after your procedure. Pain Control: The puncture site may be sore for 1 to 2 days following the procedure. About 1 in 5 patients develop a headache. If this occurs; follow the directions below: [id number] pain medication should be used for pain or discomfort. Please check with the physician who ordered this procedure for you for their specific recommendations. Lay flat on your back and only get up to use the restroom for the remainder of the day. ?Drink extra fluids, including caffeinated beverages, unless otherwise directed by your ordering physician. If you were sedated for this procedure: Avoid alcoholic beverages for 24 hours after your procedure. Do not drive or operate heavy machinery for 24 hours after your procedure. Do not make any legal decisions for 24 hours after your procedure. Medication: Please resume home medications today as scheduled. When to seek medial care: Foul odor, pus drainage, redness, or swelling at puncture site. Excessive bleeding from puncture site. Fever greater than 101 degrees and chills. Severe postural headache: A headache that gets worse when standing and is relieved or improves when laying down, persists regardless of bed rest and increased fluids, and last more than 24 hours following the procedure. If you experience any of these issues during the first 24 hours, please follow the instruction below: For the first 24 hours please call [phone] After 24 hours, contact the physician who ordered this procedure for you. Obtaining test results: Please make an appointment with your doctor to obtain your test results. They are usually availablewithin 4 to 7 business days. Do not assume everything is normal if you have not heard from your doctor or medical facility. It is important for you to follow up on all of your test results. Follow Up Care 02/13/2023 14:16:04 With:Go to emergency room if symptoms worsen Address:Unknown When: Unknown With:HELEN LOWE Address: [address] [facility] [address] [place] [address] [phone] Business (1) When: Unknown Comments:Follow-up as scheduled With:HOMERO BRYAN Address: [address] [facility] [address] [phone] Business (1) When: Unknown [facility] 04-05-2023 Note* Jesica Hayden Tech: SIGN, AUTHOR, PERFORM Event Display: IR Procedure Record Authored Date: IR Procedure Record Summary Primary Physician: KERRIE SHERWOOD PA-C Finalized Date/Time: 02/25/23 10:58:31 Pt. Name: NATHANIEL WILLOUGHBY /Sex: 1955 Female Med Rec #: [id number] Physician: Financial #: [id number] Pt. Type: O Room/Bed: / Admit/Disch: 02/25/23 08:43:00 - Institution: Allergies identified in patient's electronic medical record at time of printing on 02/25/23 Entry 1 Substance NKA Reaction Type Allergy Last Modified By: DELIO Jones 12/09/17 06:48:46 Case Attendance- IR Entry 1 Entry 2 Entry 3 Case Attendee KERRIE SHERWOOD Terra L Hultman, Rad Tech PA-C Retail Presentation SpecialistElle Cooley Role Performed Primary Surgeon Circulating Technologist Scrub Technologist Details Time In 02/25/23 09:29:00 02/25/23 09:29:00 02/25/23 09:29:00 Time Out 02/25/23 10:43:00 02/25/23 10:43:00 02/25/23 10:43:00 Procedure/Preference IR Lumbar Puncture SN IR Lumbar Puncture SN IR Lumbar Puncture SN Card Last Modified By: Jesica Hayden Megan R Rad Fierstos, Megan R Rad Tech 02/25/23 10:55:28 Tech 02/25/23 10:55:28 Tech 02/25/23 10:55:28 Radiology Procedures- IR Entry 1 Procedure/Preference IR Lumbar Puncture SN Actual Procedure IR LUMBAR PUNCTURE SN Card Primary Procedure Yes Primary Surgeon KERRIE SHERWOOD PA-C Anesthesia/Sedation Local Type Additional Procedure Times Start 02/25/23 09:40:00 Stop 02/25/23 10:36:00 Specialty Service SN Radiology Procedure EBL 1 mL Last Modified By: Evette Jay Retail Presentation Specialist 02/25/23 10:37:02 Radiology Procedure Details - IR Entry 1 Radiology Sedation Case Times Sedation Total Time 0 Radiology - Fluid/Drainage Radiology Contrast Contrast Used? Yes Dose 6.5 mL Medication OMNIPAQUE 180 20ML 10/PK Y-[address] Radiology Flouroscopy Fluoroscopy Used? Yes Fluoro Dose (mGy) 252 Fluoro Time 2 mins 13 secs Radiology Local Local Used? Yes Local Type: lidocaine 1% Local Dose 5 ml Radiology Procedure Site Site/Location lower back Site Condition No complications Dressing Type Bandaids Technologist Notes lumbar puncture for cisternogram; L2-3 ; opening- 10; 1.500 mCi in-111DTPA @ 1033am Last Modified By: Jesica Hayden Retail Presentation Specialist 02/25/23 10:57:41 General Case Data - IR Entry 1 Case Information Room AH IR 16 Case Level IR Level 1 Wound Class None Specialty SN Radiology Procedure ASA Class None Diagnosis Preop Diagnosis hydrocephalus Postop Same As Preop Yes Postop Diagnosis hydrocephalus Last Modified By: Evette Jay Retail Presentation Specialist 02/25/23 09:40:50 Procedure Case Times- IR Entry 1 Patient In Procedure Patient In OR 02/25/23 09:29:00 Patient Out of OR 02/25/23 10:43:00 Procedure Start/Stop Procedure Start Time 02/25/23 09:40:00 Procedure Stop Time 02/25/23 10:36:00 Last Modified By: Evette Jay Retail Presentation Specialist 02/25/23 10:36:59 Immediate Post Procedure Note - IR Entry 1 Immediate Post Yes Findings lumbar puncture Procedure Note cisternogram displayed for Physician to review Closure Technique Closure Technique Other than Primary Last Modified By: Evette Jay Retail Presentation Specialist 02/25/23 09:46:29 Immediate Post Procedure Note - IR Signed By: KERRIE SHERWOOD PA-C 02/25/23 10:38 Allergy Information- IR Entry 1 Allergies Reviewed? Yes Allergies Reviewed Medical Record With Last Modified By: Evette Jay Retail Presentation Specialist 02/25/23 09:35:05 Radiology Protocols/Time Out- IR Entry 1 Preprocedure Clinician Verifies Correct patient ID When Clinically Confirmation of correct using name & date Indicated side(s) and site(s), or MRN, Accurate Correct diagnostic and procedure, complete radiology tests Informed Consent, H & P available, Required update immediately blood products, prior to procedure, if implants, devices applicable and/or special equipment available OR/Procedure Room/Bedside Time 02/25/23 09:40:00 Clinician Verifies Correct patient identity including EMR & records using name and date or medical record number, Accurate procedure consent form, Correct patient position, Necessary equipment is available, Anticipated non-routine events with surgical team (case duration, estimated blood loss, patient specific concerns)., Aguilar patient factors for recovery and management identified with surgical team. When Applicable Confirmation correct Team Members KERRIE SHERWOOD side and site marked, Present for Time Out Emigdio FOSTER Rad Tech Relevant images and Pierre Woodward, results are properly Evette Almeida labeled and appropriately displayed Instrument Sterility Team Members Pepe Beal Verifying Sterility Janneth Cooley Procedure IR Lumbar Puncture SN Last Modified By: Evette Jay [employer] 02/25/23 09:40:13 Skin Prep- IR Entry 1 Procedure IR Lumbar Puncture SN Skin Prep Prep Area Back Side Medial, Lower By Pepe Beal Prep Agents Betadine Scrub Janneth Cooley Hair Removal Method N/A Last Modified By: Evette Jay [employer] 02/25/23 09:39:27 Patient Positioning- IR Entry 1 Procedure IR Lumbar Puncture SN Body Position OP Prone Feet Uncrossed? Yes Pressure Points Yes Checked Last Modified By: Evette Jay [employer] 02/25/23 09:40:01 Radiology Procedure Plan - IR Entry 1 Radiology - Nursing Care Plan Radiology - Action Plan Action Plan - Patient demonstrates Outcome Statement knowledge of the expected reseponses to the invasive procedure, Patient's value system, lifestyle, ethnicity, and culture are considered, respected, and incorporated in the perioperative plan of care., Patient is free from signs and symptoms of infection., Patient is free from signs and symptoms of injury related to positioning., Patient is free from signs and symptoms of chemical injury., Patient receives appropriate medication(s), safely administered during the perioperative period., Patient is free from signs and symptoms of injury caused by extraneous objects (equipment, instrumentation, sponges, or sharps)., Patient is free from signs and symptoms of electrical injury. Outcomes Met? Yes Manager Creative Services Evette Jay Completing Retail Presentation Specialist Procedure Plan Last Modified By: Evette Jay 02/25/23 09:41:03 Case Comments <None> Finalized By: Jesica Hayden Document Signatures Signed By: Jesica Hayden 02/25/23 10:[address] [facility] 04-05-2023 Summary of episode note Discharge Instructions Thank you for allowing [facility] to assist you with your healthcare needs. The following is importantdischarge information regarding your hospital visit. Your Care Team HOMERO BRYAN DO What to do next Follow Up Appointments Follow Up with Go to emergency room if symptoms worsen When Follow Up with HELEN LOWE When Why: Follow-up as scheduled Where: [address] [facility] [address] [place] [address]- [phone] Business (1) Follow Up with HOMERO BRYAN When In 0 days Where: [address] [facility] [place] [address]- [phone] Business (1) Allergies NKA Medications Please ask your primary doctor or pharmacist before taking any other medication not listed, including over the counter drugs, herbal medications, vitamins and or supplements as they may interact withyour home medications. What How Much When Instructions Last Dose Unchanged acetaminophen (Tylenol) 1,000 Milligram by mouth Two (2) times a day as needed for as needed for pain Unchanged carbidopa-levodopa (carbidopa-levodopa 25 mg-100 mg oral tablet) TAKE 1.5 TABLETS BY MOUTH 3 TIMES A DAY Unchanged levETIRAcetam (levETIRAcetam 500 mg oral tablet) 2 tab(s) by mouth Two (2) times a day Unchanged levothyroxine (levothyroxine 125 mcg (0.125 mg) oral tablet) 1 tab(s) by mouth Once a day Please take this list to your next doctor s visit. Bring all medications you take, including over the counter medications, herbals and other supplements with you to your doctor s visit. Patients and families are reminded to discard old lists and to update any records with all medication providers or retail pharmacies. Education Materials [place] Lumbar Puncture Discharge Instructions Interventional Radiology [facility] Imaging Services [address] [address] Your physician has ordered a lumbar puncture for you today. A small amount of cerebrospinal fluid (CSF) that surrounds the spinal canal and brain was drained through a small needle puncture in your lower back. This fluid will be sent to the lab for testing. This procedure will usually cause some soreness around the puncture site for a day or two. Some people may experience a headache after a lumbar puncture. Please follow the instructions below to reduce the chance of experiencing complications. Diet: Resume your normal diet as tolerated. Drink at least 8 to 10 glasses of water over the next 24 hours. Activity: You will be asked to lie flat for 2 hours at the hospital following your procedure. Getting up too soon may worsen your headache. Therefore, it is important that you LIE FLAT (your head level with the rest of your body on your side, back or stomach) for the next 6 hours after you return home. Then, relax with minimal activity for the rest of the day. Avoid strenuous activity for 24 hours following the procedure. Do not lift anything more than 10 pounds for 24 hours. You may bathe/shower as usual after 24 hours. Dressing: Change the band aid as needed. It may be removed 24 hours after your procedure. Pain Control: The puncture site may be sore for 1 to 2 days following the procedure. About 1 in 5 patients develop a headache. If this occurs; follow the directions below: Lpsr-xqf-epneotz pain medication should be used for pain or discomfort. Please check with the physician who ordered this procedure for you for their specific recommendations. Lay flat on your back and only get up to use the restroom for the remainder of the day. ? Drink extra fluids, including caffeinated beverages, unless otherwise directed by your ordering physician. If you were sedated for this procedure: Avoid alcoholic beverages for 24 hours after your procedure. Do not drive or operate heavy machinery for 24 hours after your procedure. Do not make any legal decisions for 24 hours after your procedure. Medication: Please resume home medications today as scheduled. When to seek medial care: Foul odor, pus drainage, redness, or swelling at puncture site. Excessive bleeding from puncture site. Fever greater than 101 degrees and chills. Severe postural headache: A headache that gets worse when standing and is relieved or improves when laying down, persists regardless of bed rest and increased fluids, and last more than 24 hours following the procedure. If you experience any of these issues during the first 24 hours, please follow the instruction below: For the first 24 hours please call [phone] After 24 hours, contact the physician who ordered this procedure for you. Obtaining test results: Please make an appointment with your doctor to obtain your test results. They are usually availablewithin 4 to 7 business days. Do not assume everything is normal if you have not heard from your doctor or medical facility. It is important for you to follow up on all of your test results. Additional Information VACCINATE! IT SAVES LIVES! Members of the community who have not yet received the COVID-19 vaccine and would like to receive it can visit one of [facility] vaccine clinics. There are many vaccine clinic locations within the [facility]. For locations and available times, please visit [email or web address] It is important to note that some COVID mobile vaccine clinics are held outdoors and may be canceled in rainy or stormy conditions. To learn more about pediatric vaccinations (ages 5-11), we invite you to visit the [facility] webpage. [email or web address]/[email or web address] [email or web address] learn more about the COVID-19 vaccine, we invite you to visit the CDC website for a list of frequently asked questions. https://www.cdc.gov/coronavirus/2019-ncov/vaccines/faq.html [facility] Patient Portal Access Instructions: Stay connected with your healthcare team and access your personal medical information anytime with the [facility] Patient Portal.If you would like a full copy of your medical records, please contact the [facility] Medical Records Department, Thursday through Thursday between 8a.m. and 4:30p.m. Please follow the directions below to access the portal: 1.Access the email account you provided upon registration to the [facility].2.Look for an invitation email from [facility].3.Open the email and access the invitation link: Accept Invitation to CX4.Fill in the required cummings to create your account. Sign into [email or web address] with your username and password that you created in the above steps to stay up to date. You can then view a summary of results, a summary of your visits, and the ability to download your summaries to your computer or send the information securely to a physician. Remember that your healthcare information is confidential, so carefully consider who you will allow to register on the [facility] Patient Portal for access to your information. You can also access the [facility] Patient Portal on the [employer]. Simply click on Health Records under dscovered and then click on the [employer] logo. HOW TO SAFELY DISPOSE OF PRESCRIPTION MEDICATIONS Please use one of the following methods to safely dispose of your unused medications. 1.Use a drug disposal kit: the drug disposal pouch allows you to safely discard your old and unuseddrugs. Ask your nurse to give you one when you are discharged.2.Visit a local take-back location: Many local pharmacies and police departments have programs that collect old and unwanted prescriptiondrugs. Call your local pharmacy or go to http://[employer].Ballooning Nest Eggs/9W2Ai4n to find one close to you.3.Make use of household items: Use cat litter or old coffee grounds to dispose medications if other options arenot available. Mix your drugs with these household products, seal them in an airtight container andthrow it into the garbage. Call [facility]: [phone] to be sure your drugs can be disposed of in this way. Some medicines may require a different approach.4.Never flush your medications down the toilet. IF YOU HAVE BEEN PRESCRIBED AN OPIOID FOR PAIN If you have been prescribed an opioid (such as hydrocodone, oxycodone or morphine), it is critical to understand the possible side effects and risks of opioid pain medications. Even when taken as directed, opioids can have several side effects including: Tolerance, meaning you might need to take more of a medication for the same pain relief. Nausea, vomiting and/or constipation. Sleepiness, dizziness, dry mouth, confusion, depression or itching. Physical dependence, meaning you have withdrawal symptoms when a medication is stopped, can develop within a few days. KNOW YOUR RESPONSIBILITIES It is important to know exactly how much and how often to take the opioid pain medications you are prescribed. Never take opioids in higher amounts or more often than prescribed. Do not combine opioids with alcohol or other drugs that cause drowsiness, such as benzodiazepines, also known as benzos, including diazepam and alprazolam, muscle relaxants or sleep aids. Never sell or share prescription opioids. This is illegal. Store opioids in a secure place and out of reach of others (including children, family, friends and visitors). The last page of this document has been signed and retained as a CHART COPY. Signatures Patient Education Materials Radiology- Lumbar Puncture 03/07/2020 (CUSTOM) Medication Leaflets My discharge plan and instructions have been reviewed and explained to me and I,NATHANIEL WILLOUGHBY understand my current condition and have read and understand these discharge instructions. I have received a written copy of the plan/instructions. If I have questions, I am aware that I should contact my doctor. 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 Note IR Procedure Record Summary Primary Physician: KERRIE SHERWOOD PA-C Finalized Date/Time: 02/25/23 10:58:31 Pt. Name: NATHANIEL WILLOUGHBY/Sex: 1955 Female Med Rec #: [id number] Physician: Financial #: [id number] Pt. Type: O Room/Bed: / Admit/Disch: 02/25/23 08:43:00 - Institution: Allergies identified in patient's electronic medical record at time of printing on 02/25/23 Entry 1 Substance NKA Reaction Type Allergy Last Modified By: DELIO Jones 12/09/17 06:48:46 Case Attendance- IR Entry 1 Entry 2 Entry 3 Case Attendee KERRIE SHERWOOD Terra L Hultman Retail Presentation Specialist CRISTIAN Retail Presentation Specialist Janneth Cooley Role Performed Primary Surgeon Circulating Technologist Scrub Technologist Details Time In 02/25/23 09:29:00 02/25/23 09:29:00 02/25/23 09:29:00 Time Out 02/25/23 10:43:00 02/25/23 10:43:00 02/25/23 10:43:00 Procedure/Preference IR Lumbar Puncture SN IR Lumbar Puncture SN IR Lumbar Puncture SN Card Last Modified By: Jesica Hayden Megan R Rad Fierstos, Megan R Retail Presentation Specialist 02/25/23 10:55:28 Tech 02/25/23 10:55:28 Tech 02/25/23 10:55:28 Radiology Procedures- IR Entry 1 Procedure/Preference IR Lumbar Puncture SN Actual Procedure IR LUMBAR PUNCTURE SN Card Primary Procedure Yes Primary Surgeon KERRIE SHERWOOD PA-C Anesthesia/Sedation Local Type Additional Procedure Times Start 02/25/23 09:40:00 Stop 02/25/23 10:36:00 Specialty Service SN Radiology Procedure EBL 1 mL Last Modified By: Evette Jay Retail Presentation Specialist 02/25/23 10:37:02 Radiology Procedure Details - IR Entry 1 Radiology Sedation Case Times Sedation Total Time 0 Radiology - Fluid/Drainage Radiology Contrast Contrast Used? Yes Dose 6.5 mL Medication OMNIPAQUE 180 20ML 10/PK Y-[address] Radiology Flouroscopy Fluoroscopy Used? Yes Fluoro Dose (mGy) 252 Fluoro Time 2 mins 13 secs Radiology Local Local Used? Yes Local Type: lidocaine 1% Local Dose 5 ml Radiology Procedure Site Site/Location lower back Site Condition No complications Dressing Type Bandaids Technologist Notes lumbar puncture for cisternogram; L2-3 ; opening- 10; 1.500 mCi in-111DTPA @ 1033am Last Modified By: Jesica Hayden Retail Presentation Specialist 02/25/23 10:57:41 General Case Data - IR Entry 1 Case Information Room IR 16 Case Level IR Level 1 Wound Class None Specialty SN Radiology Procedure ASA Class None Diagnosis Preop Diagnosis hydrocephalus Postop Same As Preop Yes Postop Diagnosis hydrocephalus Last Modified By: Evette Jay Retail Presentation Specialist 02/25/23 09:40:50 Procedure Case Times- IR Entry 1 Patient In Procedure Patient In OR 02/25/23 09:29:00 Patient Out of OR 02/25/23 10:43:00 Procedure Start/Stop Procedure Start Time 02/25/23 09:40:00 Procedure Stop Time 02/25/23 10:36:00 Last Modified By: Evette Jay 02/25/23 10:36:59 Immediate Post Procedure Note - IR Entry 1 Immediate Post Yes Findings lumbar puncture Procedure Note cisternogram displayed for Physician to review Closure Technique Closure Technique Other than Primary Last Modified By: Evette Jay 02/25/23 09:46:29 Immediate Post Procedure Note - IR Signed By: KERRIE SHERWOOD PA-C 02/25/23 10:38 Allergy Information- IR Entry 1 Allergies Reviewed? Yes Allergies Reviewed Medical Record With Last Modified By: Evette Jay 02/25/23 09:35:05 Radiology Protocols/Time Out- IR Entry 1 Preprocedure Clinician Verifies Correct patient ID When Clinically Confirmation of correct using name & date Indicated side(s) and site(s), or MRN, Accurate Correct diagnostic and procedure, complete radiology tests Informed Consent, H & P available, Required update immediately blood products, prior to procedure, if implants, devices applicable and/or special equipment available OR/Procedure Room/Bedside Time 02/25/23 09:40:00 Clinician Verifies Correct patient identity including EMR & records using name and date or medical record number, Accurate procedure consent form, Correct patient position, Necessary equipment is available, Anticipated non-routine events with surgical team (case duration, estimated blood loss, patient specific concerns)., Aguilar patient factors for recovery and management identified with surgical team. When Applicable Confirmation correct Team Members KERRIE SHERWOOD side and site marked, Present for Time Out Emigdio FOSTER Rad Tech Relevant images and Pierre Woodward, results are properly Evette Almeida labeled and appropriately displayed Instrument Sterility Team Members Pepe Beal Verifying Sterility Janneth Cooley Procedure IR Lumbar Puncture SN Last Modified By: Evette Jay 02/25/23 09:40:13 Skin Prep- IR Entry 1 Procedure IR Lumbar Puncture SN Skin Prep Prep Area Back Side Medial, Lower By Pepe Beal Prep Agents Betadine Scrub Janneth Cooley Hair Removal Method N/A Last Modified By: Evette Jay Tech 02/25/23 09:39:27 Patient Positioning- IR Entry 1 Procedure IR Lumbar Puncture SN Body Position OP Prone Feet Uncrossed? Yes Pressure Points Yes Checked Last Modified By: Evette Jay Tech 02/25/23 09:40:01 Radiology Procedure Plan - IR Entry 1 Radiology - Nursing Care Plan Radiology - Action Plan Action Plan - Patient demonstrates Outcome Statement knowledge of the expected reseponses to the invasive procedure, Patient's value system, lifestyle, ethnicity, and culture are considered, respected, and incorporated in the perioperative plan of care., Patient is free from signs and symptoms of infection., Patient is free from signs and symptoms of injury related to positioning., Patient is free from signs and symptoms of chemical injury., Patient receives appropriate medication(s), safely administered during the perioperative period., Patient is free from signs and symptoms of injury caused by extraneous objects (equipment, instrumentation, sponges, or sharps)., Patient is free from signs and symptoms of electrical injury. Outcomes Met? Yes Manager Creative Services Evette Jay Completing Pepe Almeida Procedure Plan Last Modified By: Evette Jay 02/25/23 09:41:03 Case Comments Finalized By: Jesica Hayden Document Signatures Signed By: Jesica Hayden 02/25/23 10:[address] [id number] Note ORIGINAL HISTORY: Dementia COMPARISON: 02 May 2021 TECHNIQUE: Routine non-contrast head CT with sagittal and coronal reconstructions This exam was performed according to our departmental dose optimization program, and includes the following measures where applicable: automated exposure control, adjustment of the mAs and/or kVp according to patient size and/or exam, and an iterative reconstruction algorithm. FINDINGS: The study is degraded by motion. The ventricles and sulci are moderately enlarged; there is mild disproportionate ventriculomegaly. There are no abnormal intra or extra-axial fluid collections. There is mild irregular decreased attenuation in the cerebral white matter; morse-white matter differentiation is maintained. The calvaria and the bones of the base of the skull are intact. IMPRESSION: Volume loss with possible mild relative ventriculomegaly, suggestive of hydrocephalus. Mild small vessel ischemic disease. Interpreted by: Rebeka Irene MD Preliminary Report By: Rebeka Irene MD Electronically signed By Rebeka Irene MD Dictated Date: 01/07/2023 8:48:13 PM Prelim Date: 01/07/2023 8:50:16 PM Sign Date: 01/07/2023 8:50:16 PM Ordering Provider: [facility]02-15-2023 Note ORIGINAL HISTORY: Dementia COMPARISON: 02 May 2021 TECHNIQUE: Routine non-contrast head CT with sagittal and coronal reconstructions This exam was performed according to our departmental dose optimization program, and includes the following measures where applicable: automated exposure control, adjustment of the mAs and/or kVp according to patient size and/or exam, and an iterative reconstruction algorithm. FINDINGS: The study is degraded by motion. The ventricles and sulci are moderately enlarged; there is mild disproportionate ventriculomegaly. There are no abnormal intra or extra-axial fluid collections. There is mild irregular decreased attenuation in the cerebral white matter; morse-white matter differentiation is maintained. The calvaria and the bones of the base of the skull are intact. IMPRESSION: Volume loss with possible mild relative ventriculomegaly, suggestive of hydrocephalus. Mild small vessel ischemic disease. Interpreted by: Rebeka Irene MD Preliminary Report By: Rebeka Irene MD Electronically signed By Rebeka Irene MD Dictated Date: 01/07/2023 8:48:13 PM Prelim Date: 01/07/2023 8:50:16 PM Sign Date: 01/07/2023 8:50:16 PM Ordering Provider: [facility]01-09-2023 Nurse Progress note Nurse went to waiting room to call patient back to a room, no response from name called, nurse attempted 2 more times to locate patient. Nurse then notified by security that patient decided to leave the ER. 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 [facility] Evaluation + Plan note Future Appointments Appointment Date:12/26/2024 04:30:00 PM Scheduled Provider:HOMERO BRYAN DO Location:[facility] Appointment Type:PC OV ED Follow Up Appointment Date:04/20/2025 02:00:00 PM Scheduled Provider:HOMERO BRYAN DO Location:[facility] Appointment Type:PC OV [facility] Evaluation + Plan note Future Appointments Appointment Date:10/20/2025 02:00:00 PM Scheduled Provider:HOMERO BRYAN DO Location:[facility] Appointment Type:PC OV Follow Up [facility] Evaluation note* Diagnosis Staghorn renal calculus- Primary Renal calculus, left Calculus of kidney documented in this encounter [facility] note* Diagnosis Staghorn renal calculus Renal calculus, left Calculus of kidney documented in this encounter [facility] note* Diagnosis Staghorn renal calculus Renal calculus, left Calculus of kidney documented in this encounter [facility] note* Diagnosis Impaired functional mobility, balance, gait, and endurance- Primary [facility] Diagnosis Staghorn renal calculus Renal calculus, left Calculus of kidney documented in this encounter [facility] note* Diagnosis Staghorn renal calculus- Primary Renal calculus, left Calculus of kidney documented in this encounter [facility] Discharge instructions No data available for this section [facility] Progress note No data available for this section [facility] Reason for visit Narrative* Imaging (Routine) - Closed Specialty Diagnoses / Procedures Referred By Contac t Referred To Contact Radiology Diagnoses Staghorn renal calculus Renal calculus, left Procedures CT abdomen pelvis wo IV contrast Chris Valderrama MD [address] [place] [phone] Phone: tel: fax: Referral ID Status Reason Start Date Expiration Date Visits Re quested Visits Authorized [id number] Closed 10/18/2024 12/17/2024 1 1 [facility] Health Summary Purpose Family History No Family History Records FoundNo Family History Records FoundNo Family History Records Found No data available for this section No Family History Records Found No data available for this section No Family History Records Found Advance Directives No Advanced Directives Records FoundNo Advanced Directives Records FoundNo Advanced Directives Records FoundNo Advanced Directives Records FoundNo Advanced Directives Records Found Additional Source Comments Care Team (unrecognized sect ion and content) Care Team Personnel Name: HOMERO BRYAN DO Position: P4 Physician - Primary Care Member Role: Primary Care Physician Address: Address: [facility] [place] [address] Care Team Related Persons Name: VERONICA WILLOUGHBY Address: [address] [place] [phone] Care Team Personnel Name: HOMERO BRYAN DO Position: P4 Physician - Primary Care Member Role: Primary Care Physician Address: Address: [facility] [place] Funez [address] Care Team Related Persons Name: VERONICA WILLOUGHBY Address: [address] [place] [phone] Care Team Personnel Name: HOMERO BRYAN DO Position: P4 Physician - Primary Care Member Role: Primary Care Physician Address: Address: [facility] [place] Funez [address] Care Team Related Persons Name: VERONICA WILLOUGHBY Address: [address] [place], [place] [phone] Care Team Personnel Name: HOMERO BRYAN DO Position: P4 Physician - Primary Care Member Role: Primary Care Physician Address: Address: [facility] [place] Funez [address] Care Team Related Persons Name: VERONICA WILLOUGHBY Address: [address] [place], [place] [phone] Patient Care team informatio n (unrecognized section and content) Manager Creative Services Relationship Specialty Start Date End Date Abdiel Downs MD [address] [address] Surgeon Urology 09/22/24 Manager Creative Services Relationship Specialty Start Date End Date Abdiel Downs MD [address] [address] Surgeon Urology 09/22/24 Manager Creative Services Relationship Specialty Start Date End Date Abdiel Downs MD [address] [address] Surgeon Urology 09/22/24 Chris Valderrama MD [address] [phone] Surgeon Urology 10/11/24 Manager Creative Services Relationship Specialty Start Date End Date Abdiel Downs MD [address] [address] Surgeon Urology 09/22/24 Chris Valderrama MD [address] [phone] Surgeon Urology 10/11/24 Manager Creative Services Relationship Specialty Start Date End Date Abdiel Downs MD [address] [address] Surgeon Urology 09/22/24 Chris Valderrama MD [address] [phone] Surgeon Urology 10/11/24 Manager Creative Services Relationship Specialty Start Date End Date Abdiel Downs MD [address] [address] Surgeon Urology 09/22/24 Chris Valderrama MD [address] [place] [address] Surgeon Urology 10/11/24 Manager Creative Services Relationship Specialty Start Date End Date Abdiel Downs MD [address] [place] [address] Surgeon Urology 09/22/24 Chris Valderrama MD [address] [place] [address] Surgeon Urology 10/11/24 INFORMATION SOURCE (unrecogn ized section and content) DATE CREATED AUTHOR 10/26/2023 [facility] ([place] DATE CREATED AUTHOR AUTHOR'S ORGANIZ ATION 10/27/2024 [facility] DATE CREATED AUTHOR AUTHOR'S ORGANIZ ATION 12/20/2024 [facility] DATE CREATED AUTHOR AUTHOR'S ORGANIZ ATION 05/13/2025 [facility] DATE CREATED AUTHOR AUTHOR'S ORGANIZ ATION 05/21/2025 [facility] Reason for Visit (unrecogniz ed section and content) Reason Comments Nephrolithiasis New Patient Specialty Diagnoses / Procedures Referred By Contac t Referred To Contact Urology Diagnoses Calculus of kidney Procedures Eval & Tx Anitha Aguilar MD [address] [place] [address] Phone: tel: fax: [facility] [place] [address] [place] [address] Phone: tel: fax: Referral ID Status Reason Start Date Expiration Date Visits Re quested Visits Authorized [id number] Closed 09/21/2024 09/21/2025 1 1 Reason Comments PT Eval Specialty Diagnoses / Procedures Referred By Contac t Referred To Contact Physical Therapy / PHYSICAL THERAPY Diagnoses wheel chair eval Procedures NEW RS SO WHEELCHAIR ASSMT Andrew Acosta MD [address] [facility] [address] [place] [address] Kerrie Mejia PT Referral ID Status Reason Start Date Expiration Date V isits Requested Visits Authorized [id number] Authorized 12/19/2024 11/22/2025 99 99 Reason Onset Date Comments Release of Information 05/05/2025 Reason Comments Nephrolithiasis [facility] follow up. [place] denies concerns/urinary signs Source Comments (unrecognize d section and content) In the event this informatio n is protected by the Federal Confidentiality of Alcohol and Drug Abuse Patient Records regulations: The Federal rules restrict any use of the information to criminally investigate or prosecute any alcohol or drug abuse patient.[facility] FOR RECORDS PERTAINING TO PATIENTS WHO ARE OR HAVE BEEN ENROLLED IN A CHEMICAL DEPENDENCY/SUBSTANCEABUSE PROGRAM, SOME INFORMATION MAY BE OMITTED. This clinical summary was aggregated from multiple sources. Caution should be exercised in using it in the provision of clinical care. This summary normalizes information from multiple sources, and as a consequence, information in this document may materially change the coding, format and clinical context of patient data. In addition, data may be omitted in some cases. CLINICAL DECISIONS SHOULD BE BASED ON THE PRIMARY CLINICAL RECORDS. [facility]. provides no warranty or guarantee of the accuracy or completeness of information in this document.
[2025-06-03] MEDS: 0.9% Normal Saline (1000mL) 1,000 ML 999 ML IV (12:20)
[2025-06-03 12:24] LABS: Mucous, Urine 0 SEEN /hpf (<or=2+)
[2025-06-03 12:27] LABS: Color, Urine Yellow (Yellow); Glucose, Dipstick Normal (Normal); Ketone-Dipstick Negative (Negative); Leukocyte Esterase-Dipstick 500 /ul (Negative); Nitrite-Dipstick Positive (Negative); Occult Blood-Urine 50 /ul (Negative); Protein-Dipstick 30 mg/dl (Negative); Specific Gravity, Urine 1.015 (1.002-1.030); Urine Bilirubin Dipstick Negative (Negative)
[2025-06-03 12:31] LABS: Anion Gap 9 (5-15); BUN 16 mg/dL (4-19); BUN/Creat Ratio 27.8 RATIO (10-20); Calcium,Total 7.8 mg/dL (7.6-11.0); Carbon Dioxide 21.8 mmol/L (21.0-32.0); Chloride 112 mmol/L (98-108); Estimated Creatinine Clearance 59.02 ml/min (50-250); Glucose 89 mg/dL (70-99); Potassium 4.0 mmol/L (3.3-5.1)
[2025-06-03 12:45] VITALS: BP 121/91; PULSE 51; RESP 12; O2SAT 100
[2025-06-03 12:48] LABS: Red Blood Cells-Urine 5-10 SEEN /hpf (0-5); Squamous Epithelial Cells - UA 0-5 SEEN /hpf (5-10)
[2025-06-03 14:27] VITALS: BP 121/91; PULSE 51; RESP 12; TEMP 36.3; O2SAT 100
== END 2025-06-03 14:28 | disposition home or self-care (01) ==
PROVIDERS: Physician Assistant; Emergency Provider Emergency Medicine; PCP Family Medicine; Visit Provider Emergency Medicine
DX: R55 Syncope and collapse (principal); F03.90 Unspecified dementia, unspecified severity, without behavioral disturbance, psychotic disturbance, mood disturbance, and anxiety; G40.909 Epilepsy, unspecified, not intractable, without status epilepticus; N39.0 Urinary tract infection, site not specified; E03.9 Hypothyroidism, unspecified; I44.0 Atrioventricular block, first degree; Z79.890 Hormone replacement therapy; Z79.899 Other long term (current) drug therapy
CPT/HCPCS: 71045; 80048; 81001; 84443; 85025; 87077; 87086; 87088; 87186; 93005; 96361; 96365; 99285; P9612; A4216